=== PATIENT | male | born 1935 | race Caucasian/White ===

== ENCOUNTER → 2016-03-14 | Outpatient (CLI) | payer MEDICARE, OTHER ==
[~2016-03-14] MED LIST: ACET-1145 PO; ALBU18HF IH; CLOP75TA27 PO; INSU100C3 SC; LANT3I SC; LEVE-5 PO; METO25TA7 PO; MONT10TA21 PO; NAPR-688 PO; ONDA4TAB35 PO; PANT40TA4 PO; TAMS0.4C2 PO; TRAM50TA2 PO
--- NOTE | 2016-03-14 15:37 | RADRPT ---
PROCEDURE: XR Chest. CLINICAL INDICATION: Cough. TECHNIQUE: Two views. Frontal and lateral. COMPARISON: 05/11/2015. FINDINGS: There is mild atelectasis at the lung bases. The lungs are otherwise clear. The heart is enlarged. There is calcification in the aorta consistent with atherosclerosis. There is no pleural effusion. There is no pneumothorax. IMPRESSION: 1. Mild atelectasis at the lung bases. 2. Cardiomegaly and atherosclerosis. RPTAT: QQ .Emerson Wu MD, MD Date Time Electronically viewed and signed by .Emerson Wu MD, on 03/14/2016 15:37 .R/
== END | disposition home or self-care (01) ==
LOC: RAD 12:29
PROVIDERS: ATTEND Internal Medicine
DX: R05 Cough (principal); J98.11 Atelectasis; I51.7 Cardiomegaly; I70.90 Unspecified atherosclerosis
CPT/HCPCS: 71020

== ENCOUNTER 2016-04-17 09:40 | Emergency (ER) | payer MEDICARE, OTHER ==
[~2016-04-17] VITALS: Wt 78.4 kg
[2016-04-17] MEDS ORDERED: DIPHENHYDRAMINE 25 MG CAP PO ONE (11:30)
[2016-04-17] MEDS ORDERED: NICARDipine HCL 30 MG CAPSULE PO ONE (11:30)
--- NOTE | 2016-04-17 12:15 | RADRPT ---
PROCEDURE: CT Brain without. CLINICAL INDICATION: Headache. TECHNIQUE: A CT of the brain was performed on multidetector high-resolution CT scanner utilizing a xial sections from the skull base through the vertex without contrast. The scan was reviewed in sof t tissue brain and high frequency resolution bone algorithm windows. Images were reviewed on a high -resolution PACS workstation. One or more the following does reduction techniques were utilized: Aut omated exposure control, adjustment of the mA/ or kV according to patient's size, or use of iterativ e reconstruction technique. The exam CTDI = 39.25 mGy and the DLP = 554.95 mGy-cm. COMPARISON: Brain CT 04/19/2015. FINDINGS: Prior right parietal craniotomy is again noted with underlying frontoparietal convexity meningioma m easuring approximately 3.1 cm without significant interval change. There is persistent similar surro unding hypoattenuation which may represent encephalomalacia versus edema. The ventricles and sulci are mildly prominent indicative of volume loss. There is no intracranial he morrhage or midline shift. No abnormal intra-axial or extra-axial fluid collections are seen. The g ray/white matter differentiation is preserved. There are mild scattered foci of hypoattenuation in the white matter, which are nonspecific in etiol ogy but likely reflect chronic small vessel ischemic changes. There are mild intracranial vascular calcifications consistent with atherosclerosis. The visualized paranasal sinuses are essentially sanjuanita ar. IMPRESSION: 1. Prior right parietal craniotomy with underlying frontoparietal convexity meningioma without sign ificant interval change. 2. No acute intracranial hemorrhage or transcortical infarction. 3. Mild intracranial atherosclerosis and chronic small vessel ischemic changes. 4. Mild generalized cerebral volume loss. RPTAT: HH .Kate Hall MD, MD Date Time Electronically viewed and signed by .Kate Hall MD, MD on 04/17/2016 12:15 .N/
[2016-04-17] MEDS ORDERED: METO100T13 PO (12:29)
[2016-04-17] MEDS ORDERED: ONDANSETRON (ODT) 4 MG TAB ODT STA (12:47)
--- NOTE | 2016-04-17 12:51 | ERD ---
ER Documentation Chief Complaint Date/Time DATE: 04/17/16 TIME: 12:51 Chief Complaint COUGH CONGESTION AND HEADACHE SINCE YESTERDAY. NO NEURO DEF. NO FALL HPI Is a 72-year-old male with coronary disease, stroke, and hypertension who presents with headache. He also complains of left-sided knee pain and itchiness to the left leg. He said that this is been going on for "days". The headache was gradual in onset. He has no fevers. He has had no treatment as of yet. Upon review of old medical records the patient has multiple visits to the ER for various complaints. He does not know the name of his primary doctor. ROS All systems reviewed and are negative except as per history of present illness. Medications Home Meds Reported Medications Metoprolol Succinate* (Toprol XL*) 100 Mg Tab.sr.24h, 100 MG PO DAILY, #30 TAB 04/17/16 Insulin Glargine* (Lantus*) 100 Unit/Ml Soln, 52 UNIT SC QHS, VIAL 04/19/15 Pantoprazole* (Pantoprazole*) 40 Mg Tablet.dr, 40 MG PO DAILY, TAB 04/19/15 Tamsulosin Hcl* (Tamsulosin Hcl*) 0.4 Mg Cap.er.24h, 0.4 MG PO DAILY, CAP 08/17/14 Clopidogrel Bisulfate (Clopidogrel) 75 Mg Tablet, 75 MG PO DAILY, TAB 08/17/14 Albuterol Sulfate* (Ventolin HFA*) 18 Gm Hfa.aer.ad, 1 PUFF IH Q4H Y for WHEEZING AND RESP DISTRESS, EA 01/29/14 Levetiracetam* (Keppra*) 500 Mg Tablet, 500 MG PO BID, TAB 01/29/14 Insulin Aspart (Novolog) 100 U/Ml Cartridge, 15 UNITS SC TID, EA 01/29/14 Discontinued Reported Medications Ondansetron Hcl* (Zofran* ODT) 4 mg -ODT Tab.disper, 4 MG PO TID Y for NAUSEA AND OR VOMITING, TAB 04/19/15 Tramadol HCl (Tramadol HCl) 50 Mg Tab, 50 MG PO QID, TAB 01/29/14 Metoprolol Succinate* (Toprol XL*) 25 Mg Tab.sr.24h, 25 MG PO BID, TAB 01/29/14 Montelukast Sodium* (Singulair*) 10 Mg Tablet, 10 MG PO HS, TAB 01/29/14 Discontinued Scripts Acetaminophen-Codeine (Tylenol With Codeine #3 Tablet) 300-30 Mg Tablet, 1 TAB PO Q4H Y for PAIN, #10 TAB Prov:LITO CHESTER DO 08/16/15 Naproxen* (Naproxen*) 500 Mg Tablet, 500 MG PO BID Y for PAIN AND/OR INFLAMMATION, #30 TAB Prov:ALEXANDRO VASQUEZ MD 10/07/14 Allergies Allergies: Coded Allergies: No Known Drug Allergies (Verified Allergy, Mild, 04/17/16) PMhx/Soc History of Surgery: Yes (prostate surgery, brain surgery, stone removal ) Anesthesia Reaction: No Hx Neurological Disorder: No Hx Respiratory Disorders: Yes (asthma ) Hx Cardiac Disorders: Yes (HTN) Hx Psychiatric Problems: No Hx Miscellaneous Medical Probl: Yes (dm) Hx Alcohol Use: Yes Hx Substance Use: No Hx Tobacco Use: No Smoking Status: Never smoker FmHx Family History: No diabetes Physical Exam Vitals Vital Signs Date Time Temp Pulse Resp B/P Pulse Ox O2 Delivery O2 Flow Rate FiO2 04/17/16 13:05 98.9 85 16 141/81 98 Room Air 04/17/16 09:48 98.9 89 20 200/89 98 Physical Exam Const: No acute distress Head: Atraumatic Eyes: Normal Conjunctiva ENT: Normal External Ears, Nose and Mouth. Neck: Full range of motion..~ No meningismus. Resp: Clear to auscultation bilaterally Cardio: Regular rate and rhythm, no murmurs Abd: Soft, non tender, non distended. Normal bowel sounds Skin: No petechiae or rashes Back: No midline or flank tenderness Ext: No cyanosis, or edema Neur: Awake and alert, cranial nerves II through XII intact, strength is 5 out of 5 in all 4 extremities, speech is normal Psych: Normal Mood and Affect Results 24 hrs Current Medications Medications (Trade) Dose Ordered Sig/Joaquin Route PRN Reason Start Time Stop Time Status Last Admin Dose Admin Nicardipine HCl (Cardene) 30 mg ONCE ONCE PO 04/17/16 11:30 04/17/16 11:31 DC 04/17/16 11:31 Diphenhydramine HCl (Benadryl) 25 mg ONCE ONCE PO 04/17/16 11:30 04/17/16 11:31 DC 04/17/16 11:32 Acetaminophen/ Hydrocodone Bitart ([place] (10/325)) 1 tab ONCE ONCE PO 04/17/16 13:00 04/17/16 13:01 DC 04/17/16 12:53 Ondansetron HCl (Zofran Odt) 4 mg ONCE STAT ODT 04/17/16 12:47 04/17/16 12:48 DC 04/17/16 12:53 Procedures/MDM EKG read by me: Rate/Rhythm: Regular rate and rhythm at a rate of 74 Intervals: Normal Impression: No evidence of ischemia or arrhythmia CT head negative for acute process per radiology. Patient is a 72-year-old male presents with hypertension and headache. CT head shows no intracranial hemorrhage or mass. EKG shows no signs of ischemia or arrhythmia. At this point I doubt stroke, intrarenal mass, or intracranial hemorrhage. I doubt meningitis. I doubt subarachnoid hemorrhage. I believe outpatient management is appropriate. The patient will need to follow-up closely with his primary doctor within 24-48 hours. The patient had elevated blood pressure was given Cardene by mouth. The patient will need to take his blood pressure medicines as directed by his doctor and follow-up closely for repeat blood pressure check. Departure Diagnosis: Primary Impression: Hypertension Hypertension type: essential hypertension Qualified Code: I10 - Essential hypertension Additional Impression: Headache Headache type: unspecified Headache chronicity pattern: acute headache Intractability: not intractable Qualified Code: R51 - Acute nonintractable headache, unspecified headache type Condition: Fair Patient Instructions: Self-Care for Headaches, High Blood Pressure ( Hypertension) Additional Instructions: Llame al doctor MAANA y jacob cas PAULINO PARA DENTRO DE 1-2 RAPHAEL.Dgale a la secretaria que nosotros le instruimos hacer esta paulino.Avise o llame si ludwig condicin se empeora antes de la paulino. Regresa aqui si peor o no mejor. JOSE DANIEL ROBBINS MD Apr 17, 2016 12:51
[2016-04-17] MEDS ORDERED: HYDROCODONE/APAP (10/325) TAB PO ONE (13:00)
[2016-04-17 13:05] VITALS: BP 141/81; PULSE 85; RESP 16; TEMP 98.9
== END 2016-04-17 13:06 | disposition home or self-care (01) ==
LOC: E/R 09:40
DX: I10 Essential (primary) hypertension (principal); E11.9 Type 2 diabetes mellitus without complications; J45.909 Unspecified asthma, uncomplicated; Z79.4 Long term (current) use of insulin
CPT/HCPCS: 70450; 93005

== ENCOUNTER 2017-01-09 09:09 | Inpatient (IN) | payer MEDICARE, OTHER ==
[~2017-01-09] VITALS: Ht 167.6 cm; Wt 79.1 kg
[2017-01-09] VITALS (8 sets, daily range): BP systolic 133–244; BP diastolic 66–107; PULSE 78–121; RESP 18–20; TEMP 98.5; Ht 167.6 cm; Wt 79.1 kg
[~2017-01-09 09:09] MED LIST changes: -ACET-1145 PO; +METO-336 PO; -METO25TA7 PO; -MONT10TA21 PO; -NAPR-688 PO; -ONDA4TAB35 PO; -TRAM50TA2 PO
[2017-01-09] MEDS ORDERED: KETOROLAC 15 MG INJ IV STA (09:27)
[2017-01-09] MEDS ORDERED: SOD CHLORIDE 0.9% 500 ML IV STA (09:27)
--- NOTE | 2017-01-09 09:30 | ERD ---
ER Documentation Chief Complaint Chief Complaint BODYACHES, WORSE ON LEFT SIDE, NUMBNESS, ON AND OFF HPI 81-year-old man brought in by daughter THAD presents with paresthesias to the left side, complains of generalized weakness and headache. He has abdominal cramping diffusely and also complains of dysuria 2 days. He denies slurred speech, no weakness in his arms or legs, no gait ataxia, no recent weight loss, no blood per rectum or melena, no fevers or chills. Patient has no history of renal issues. ROS All systems reviewed and are negative except as per history of present illness. Medications Home Meds Reported Medications Metoprolol Succinate* (Toprol XL*) 100 Mg Tab.sr.24h, 100 MG PO DAILY, #30 TAB 04/17/16 Insulin Glargine* (Lantus*) 100 Unit/Ml Soln, 52 UNIT SC QHS, VIAL 04/19/15 Pantoprazole* (Pantoprazole*) 40 Mg Tablet.dr, 40 MG PO DAILY, TAB 04/19/15 Tamsulosin Hcl* (Tamsulosin Hcl*) 0.4 Mg Cap.er.24h, 0.4 MG PO DAILY, CAP 08/17/14 Clopidogrel Bisulfate (Clopidogrel) 75 Mg Tablet, 75 MG PO DAILY, TAB 08/17/14 Albuterol Sulfate* (Ventolin HFA*) 18 Gm Hfa.aer.ad, 1 PUFF IH Q4H Y for WHEEZING AND RESP DISTRESS, EA 01/29/14 Levetiracetam* (Keppra*) 500 Mg Tablet, 500 MG PO BID, TAB 01/29/14 Insulin Aspart (Novolog) 100 U/Ml Cartridge, 15 UNITS SC TID, EA 01/29/14 Allergies Allergies: Coded Allergies: No Known Drug Allergies (Verified Allergy, Mild, 01/09/17) PMhx/Soc COPD, hypertension, obesity, diabetes mellitus, BPH History of Surgery: Yes (prostate surgery, brain surgery, stone removal ) Anesthesia Reaction: No Hx Neurological Disorder: No Hx Respiratory Disorders: Yes (asthma ) Hx Cardiac Disorders: Yes (HTN) Hx Psychiatric Problems: No Hx Miscellaneous Medical Probl: Yes (dm) Hx Alcohol Use: Yes Hx Substance Use: No Hx Tobacco Use: No FmHx Family History: No diabetes Physical Exam Vitals Vital Signs Date Time Temp Pulse Resp B/P Pulse Ox O2 Delivery O2 Flow Rate FiO2 01/09/17 11:44 69 18 173/104 98 Room Air 01/09/17 09:43 73 18 189/95 97 Room Air 01/09/17 09:13 98.5 85 17 213/98 98 Physical Exam GENERAL: Well-developed, well-nourished, well-hydrated, moderate discomfort, afebrile HEENT: Moist mucous membranes, pink conjunctiva, no cervical spine tenderness or step-off deformities, no goiter, no jaundice or icterus, extraocular movements intact without pain. No submandibular induration, and no pharyngeal erythema NEURO: Alert and oriented 3, cranial nerves II through XII intact bilaterally, pupils equal round reactive to light, no focal deficits or facial asymmetry, sensation intact distally Strength 5/5 in upper and lower extremities bilaterally CARDIAC: Regular rate and rhythm, no murmurs rubs or gallops LUNGS: Clear bilaterally no wheezing crackles or stridor ABDOMEN: Soft nontender, no guarding, no rigidity, no rebound, no psoas sign no obturator sign. Normoactive bowel sounds SKIN: Warm and dry to touch, no abrasions, contusions, or hematomas, no lacerations, no ecchymosis, no target lesions, and without ulcers EXTREMITIES: No clubbing cyanosis or edema, calves are bilaterally symmetrical, no Homans sign, no popliteal cord sign. Distal pulses equal and bilateral PSYCH: Normal affect without agitation or irritability Result Diagram: 01/10/1760401/10/17604 Results 24 hrs Laboratory Tests Test 01/09/17 10:00 01/09/17 10:50 White Blood Count 7.410^3/ul Red Blood Count 3.6110^6/ul Hemoglobin 11.0g/dl Hematocrit 32.1% Mean Corpuscular Volume 88.9fl Mean Corpuscular Hemoglobin 30.5pg Mean Corpuscular Hemoglobin Concent 34.3g/dl Red Cell Distribution Width 13.3% Platelet Count 70509^3/UL Mean Platelet Volume 10.5fl Neutrophils % 71.3% Lymphocytes % 18.8% Monocytes % 6.6% Eosinophils % 2.2% Basophils % 0.7% Nucleated Red Blood Cells % 0.0/100WBC Neutrophils # 5.310^3/ul Lymphocytes # 1.410^3/ul Monocytes # 0.510^3/ul Eosinophils # 0.210^3/ul Basophils # 0.110^3/ul Nucleated Red Blood Cells # 0.010^3/ul Urine Color YELLOW Urine Clarity CLEAR Urine pH 6.0 Urine Specific [place] 1.013 Urine Ketones NEGATIVEmg/dL Urine Nitrite NEGATIVEmg/dL Urine Bilirubin NEGATIVEmg/dL Urine Urobilinogen NEGATIVEmg/dL Urine Leukocyte Esterase NEGATIVELeu/ul Urine Microscopic RBC 1/HPF Urine Microscopic WBC 1/HPF Urine Bacteria FEW/HPF Urine Eosinophils % 0.0% Urine Hemoglobin NEGATIVEmg/dL Urine Random Creatinine 73.19mg/dl Urine Random Sodium 88mmol/L Urine Protein/Creatinine Ratio 20.23RATIO Urine Glucose 3+mg/dL Urine Total Protein mg/dl Sodium Level 140mmol/L Potassium Level 4.2mmol/L Chloride Level 109mmol/L Carbon Dioxide Level 24mmol/L Anion Gap 11 Blood Urea Nitrogen 33mg/dl Creatinine 3.21mg/dl Glucose Level 144mg/dl Calcium Level 8.3mg/dl Total Bilirubin 0.1mg/dl Direct Bilirubin 0.00mg/dl Indirect Bilirubin 0.1mg/dl Aspartate Amino Transf (AST/SGOT) 26IU/L Alanine Aminotransferase (ALT/SGPT) 38IU/L Alkaline Phosphatase 68IU/L Troponin I 0.033ng/ml Total Protein 5.5g/dl Albumin 2.7g/dl Globulin 2.80g/dl Albumin/Globulin Ratio 0.96 Lipase 130U/L Hemoglobin A1c 7.9% Triglycerides Level 205mg/dl Cholesterol Level 176mg/dl LDL Cholesterol, Calculated 101mg/dl HDL Cholesterol 34mg/dl Cholesterol/HDL Ratio 5.1RATIO Thyroid Stimulating Hormone (TSH) 2.230MIU/L Current Medications Medications (Trade) Dose Ordered Sig/Joaquni Route PRN Reason Start Time Stop Time Status Last Admin Dose Admin Sodium Chloride (NS) 500 ml @ 500 mls/hr Q1H STAT IV 01/09/17 09:27 01/09/17 10:26 DC 01/09/17 10:06 Ketorolac Tromethamine (Toradol) 15 mg ONCE STAT IV 01/09/17 09:27 01/09/17 09:29 DC 01/09/17 10:03 Morphine Sulfate (morphine) 4 mg ONCE STAT IV 01/09/17 11:11 01/09/17 11:12 DC 01/09/17 11:39 Ondansetron HCl (Zofran Inj) 4 mg ONCE STAT IV 01/09/17 11:11 01/09/17 11:12 DC 01/09/17 11:37 Cephalexin (Keflex) 500 mg ONCE ONCE PO 01/09/17 11:30 01/09/17 11:31 DC 01/09/17 11:39 Procedures/[facility] IV line was established patient was placed on satellite project site monitor rhythm strip revealed a sinus rhythm at about 70 bpm with upright P and T waves. Patient was afebrile EKG performed, read by me: 72 bpm, normal sinus rhythm, normal axis, no acute ST segment changes, narrow QRS complex, with good R-wave progression in precordial leads. One view chest x-ray performed, read by me reveals cardiomegaly and atelectasis at the left base, no acute infiltrates, no pneumothorax. CT scan of the brain was performed: IMPRESSION: 1. Prior right parietal craniotomy with underlying frontoparietal convexity meningioma with persistent surrounding encephalomalacia and/or edema. Consider follow-up brain MRI for better evaluation. 2. No acute intracranial hemorrhage or transcortical infarction. 3. Mild intracranial atherosclerosis and chronic small vessel ischemic changes. 4. Mild generalized cerebral volume loss. CT scan of the abdomen and pelvis was performed,IMPRESSION: 1. No gross renal/ureteric calculi. No evidence of obstruction or hydronephrosis. Small left-sided renal cyst. No gross renal/ureteric calculi. The right kidney is mildly atrophic. 2. Sigmoid diverticulosis without evidence of diverticulitis. No perforation or focal fluid collections. Mild adjacent mesenteric congestion is identified, unchanged since prior study. 3. No evidence of bowel obstruction. The appendix is within normal limits. 4. Fatty liver. 5. Atherosclerosis of the aorta. 6. Bilateral lower lobe atelectasis and small pleural effusions Patient was initially given Toradol 15 mg IV 1 for complaints of pain (he had no known history of renal issues), for later complaints of pain and headache I administered morphine 4 mg IV and Zofran 4 mg IV. CBC was unremarkable, electrolytes revealed renal failure with a BUN/creatinine of 33/3.2, liver function tests are normal, troponin was negative, urine analysis was negative for infection. Patient presented with multiple vague symptoms including body aches and headache , he had no history of renal failure and previous creatinine levels have been within normal limits. He required multiple analgesics for pain control and was found to have an elevated creatinine level, imaging studies were unremarkable and he will be admitted to [facility] for continued medical management and evaluation. Antibiotics deferred at this time pending urine cultures. Departure Diagnosis: Primary Impression: Acute weakness Additional Impressions: Acute renal failure Acute renal failure type: unspecified Qualified Code: N17.9 - Acute renal failure, unspecified acute renal failure type Headache Headache type: tension-type Headache chronicity pattern: acute headache Intractability: intractable Qualified Code: G44.201 - Acute intractable tension-type headache Condition: ALEXANDRO Prakash MD Jan 09, 2017 09:30
--- NOTE | 2017-01-09 09:45 | RADRPT ---
PROCEDURE: XR Chest. CLINICAL INDICATION: Shortness of breath TECHNIQUE: Single portable view of the chest was obtained COMPARISON: CR CHEST 03/14/2016; OT CR CHEST 05/11/2015; CR CHEST 04/19/2015 FINDINGS: The trachea is midline. The cardiac silhouette is enlarged and pulmonary vascularity are within norm al limits. Left lower lobe atelectasis is noted. There is atherosclerotic calcification of the aorti c knob. The costophrenic angles are sharp. IMPRESSION: 1. Cardiomegaly and atherosclerotic disease. 2. Left lower lobe atelectasis. No evidence of acute cardiopulmonary disease. No change since prior exam. RPTAT: AAPP Physician [place] Date Time Electronically viewed and signed by Froy Rosenthal Physician on 01/09/2017 09:45 JL/
[2017-01-09 10:37] LABS: BASOPHIL # 0.1 10^3/ul (0.0-0.1); BASOPHILS % 0.7 % (0.0-2.0); EOSINOPHILS # 0.2 10^3/ul (0.0-0.5); EOSINOPHILS % 2.2 % (0.0-7.0); HEMATOCRIT 32.1 % (42.0-52.0); LYMPHOCYTES # 1.4 10^3/ul (0.8-2.9); LYMPHOCYTES % 18.8 % (15.0-51.0); MEAN CORPUSCULAR HEMOGLOBIN 30.5 pg (29.0-33.0); MEAN CORPUSCULAR HGB CONC 34.3 g/dl (32.0-37.0); MEAN CORPUSCULAR VOLUME 88.9 fl (82.0-101.0); MEAN PLATELET VOLUME 10.5 fl (7.4-10.4); MONOCYTE # 0.5 10^3/ul (0.3-0.9); MONOCYTES % 6.6 % (0.0-11.0); NEUTROPHIL # 5.3 10^3/ul (1.6-7.5); NEUTROPHILS % 71.3 % (39.0-77.0); PLATELET COUNT 281 10^3/UL (140-415); RED BLOOD COUNT 3.61 10^6/ul (4.70-6.10); RED CELL DISTRIBUTION WIDTH 13.3 % (11.5-14.5); WHITE BLOOD COUNT 7.4 10^3/ul (4.8-10.8)
[2017-01-09 10:46] LABS: ALBUMIN 2.7 g/dl (3.3-4.9); ALBUMIN/GLOBULIN RATIO 0.96; BILIRUBIN,INDIRECT 0.1 mg/dl (0-1.1); BILIRUBIN,TOTAL 0.1 mg/dl (0.2-1.3); CALCIUM 8.3 mg/dl (8.4-10.2); CREATININE 3.21 mg/dl (0.61-1.24); POTASSIUM 4.2 mmol/L (3.5-5.1); TOTAL PROTEIN 5.5 g/dl (6.1-8.1)
[2017-01-09 10:58] LABS: TROPONIN-I 0.033 ng/ml (0.00-0.12)
[2017-01-09] MEDS ORDERED: morphine 4 MG/ML VIAL IV STA (11:11)
[2017-01-09] MEDS ORDERED: ONDANSETRON 4 MG INJ IV STA (11:11)
[2017-01-09 11:22] LABS: ADD UMIC YES; UR ASCORBIC ACID NEGATIVE (NEGATIVE); UR BACTERIA FEW /HPF (NONE SEEN); UR BILIRUBIN (Dip) NEGATIVE (NEGATIVE); UR BLOOD (Dip) NEGATIVE (NEGATIVE); UR CLARITY CLEAR (CLEAR); UR COLOR YELLOW (YELLOW); UR GLUCOSE (Dip) 3+ mg/dL (NEGATIVE); UR KETONES (Dip) NEGATIVE (NEGATIVE); UR LEUKOCYTE ESTERASE (Dip) NEGATIVE Leu/ul (NEGATIVE); UR NITRITE (Dip) NEGATIVE (NEGATIVE); UR RBC 1 /HPF (0-5); UR SPECIFIC GRAVITY (Dip) 1.013 (1.003-1.030); UR TOTAL PROTEIN (Dip) 3+ mg/dl (NEGATIVE); UR UROBILINOGEN (Dip) NEGATIVE (NEGATIVE)
[2017-01-09] MEDS ORDERED: CEPHALEXIN 500 MG CAP PO ONE (11:30)
--- NOTE | 2017-01-09 12:31 | RADRPT ---
PROCEDURE: CT ABDOMEN AND PELVIS WITHOUT CONTRAST. CLINICAL INDICATION: Flank pain. Rule out stone TECHNIQUE: CT scan of the abdomen and pelvis without contrast was performed on a multidetector hig h-resolution CT scanner. The patient was scanned without intravenous contrast. Coronal and sagittal reformatted images were obtained from the axial source images. Images were reviewed on a high-resol [employer] PACS workstation. The total exam CTDI equals 17.9 mGy and the total exam DLP equals 1013.4 mGy -cm. One or more of the following dose reduction techniques were used: Automated exposure control. Adjustment of the mA and/or kV according to patient size. Use of iterative reconstruction technique. DICOM images are available COMPARISON: CT abdomen/pelvis dated August 16, 2015 FINDINGS: CT abdomen: There is bilateral lower lobe atelectasis and small pleural effusions. Heart size is enlarged. There is no significant pericardial effusion. Hepatic morphology is within limits. There is diffuse fatty infiltration of the liver. Gallbladder i s unremarkable. No evidence of intrahepatic or extrahepatic biliary dilatation. The spleen and pancreas are within normal limits. Both adrenal glands are within normal limits. Both kidneys are and normal position. There is nonspecific perinephric fat stranding. No obstruction or hydronephrosis. No gross renal/ureteric calculi. There is a small left-sided renal cyst. The rig ht kidney is mildly atrophic. The visualized GI tract demonstrate normal caliber loops of small and large bowel. No evidence of nitesh wel obstruction. The appendix is within normal limits. Mild atherosclerotic calcification of the aorta is identified. No significant retroperitoneal lympha denopathy. CT pelvis: Bladder is unremarkable. The prostate gland is normal size. The sigmoid colon demonstrate diverticul osis without evidence of diverticulitis. There is mesenteric congestion, unchanged since prior study . No perforation or focal fluid collections. The visualized osseous structures demonstrate multilevel degenerative disease of the spine. IMPRESSION: 1. No gross renal/ureteric calculi. No evidence of obstruction or hydronephrosis. Small left-sided r enal cyst. No gross renal/ureteric calculi. The right kidney is mildly atrophic. 2. Sigmoid diverticulosis without evidence of diverticulitis. No perforation or focal fluid collecti ons. Mild adjacent mesenteric congestion is identified, unchanged since prior study. 3. No evidence of bowel obstruction. The appendix is within normal limits. 4. Fatty liver. 5. Atherosclerosis of the aorta. 6. Bilateral lower lobe atelectasis and small pleural effusions RPTAT: AAPP Froy Rosenthal Physician Date Time Electronically viewed and signed by Froy Rosenthal Physician on 01/09/2017 12:31 JL/
--- NOTE | 2017-01-09 12:34 | RADRPT ---
PROCEDURE: CT Brain without contrast. CLINICAL INDICATION: Numbness, concern for bleed. TECHNIQUE: A CT of the brain was performed on multidetector high-resolution CT scanner utilizing a xial sections from the skull base through the vertex without contrast. The scan was reviewed in sof t tissue brain and high frequency resolution bone algorithm windows. Images were reviewed on a high -resolution PACS workstation. One or more the following does reduction techniques were utilized: Aut omated exposure control, adjustment of the mA/ or kV according to patient's size, or use of iterativ e reconstruction technique. The exam CTDI = 43.05 mGy and the DLP = 720.23 mGy-cm. DICOM images are available. COMPARISON: Brain CT 04/17/2016. Brain MRI 04/21/2015. FINDINGS: Prior right parietal craniotomy is again noted with underlying frontoparietal convexity meningioma m easuring approximately 3.1 cm without significant interval change. There is persistent similar surro unding hypoattenuation which may represent encephalomalacia and/or edema. The ventricles and sulci are mildly prominent indicative of volume loss. There is no intracranial he morrhage or midline shift. No abnormal intra-axial or extra-axial fluid collections are seen. The gr ay/white matter differentiation is preserved. There are mild scattered foci of hypoattenuation in the white matter, which are nonspecific in etiol ogy but likely reflect chronic small vessel ischemic changes. There are mild intracranial vascular c alcifications consistent with atherosclerosis. The visualized paranasal sinuses are essentially jessika r. IMPRESSION: 1. Prior right parietal craniotomy with underlying frontoparietal convexity meningioma with persist ent surrounding encephalomalacia and/or edema. Consider follow-up brain MRI for better evaluation. 2. No acute intracranial hemorrhage or transcortical infarction. 3. Mild intracranial atherosclerosis and chronic small vessel ischemic changes. 4. Mild generalized cerebral volume loss. RPTAT: HH .Kate Hall MD, MD Date Time Electronically viewed and signed by .Kate Hall MD, MD on 01/09/2017 12:33 .N/
--- NOTE | 2017-01-09 13:22 | HP ---
Date/Time of Note Date/Time of Note DATE: 01/09/17 TIME: 13:22 Assessment/Plan VTE Prophylaxis VTE Prophylaxis Intervention: heparin Lines/Catheters IV Catheter Type (from Nrs): Peripheral IV Assessment/Plan Chief Complaint/Hosp Course 81-year-old male with a past medical history of hypertension, dyslipidemia, type 2 diabetes, diabetic neuropathy, coronary artery disease, COPD, meningioma with right frontoparietal craniotomy, TIAs, BPH, right ICA stenosis, who presented to the emergency room for evaluation of generalized weakness, headache , B/L lower extremity pain and numbness who also noted with elevated creatinine and HTN urgency. 1. Generalized weakness, headache, lower extremity pain and numbness. Rule out acute neurovascular etiology versus other causes. -Admit as inpatient. Obtain MRI brain, carotid ultrasound and a lower extremity venous duplex to rule out DVT. -Monitor neurovascular checks every 4 hrs -Pain meds PRN. 2. Hypertensive urgency. -Hydralazine IV PRN SBP greater than 170. -Resume home antihypertensives. 3. Acute kidney injury. Needs to rule out chronic kidney disease as well. -Obtain renal ultrasound, and urine studies. Will also place a nephrology consult. -Monitor renal function closely and avoid nephrotoxins. 4. Anemia, likely chronic. H&H stable. -Monitor. 5. Type 2 diabetes with DM neuropathy. -Hold oral agents for now. Obtain A1c. Patient will be placed on Accu-Cheks/ insulin sliding scale/and Lantus insulin. 6.Dyslipidemia -Resume statin. 7. COPD. Stable. -PRN TRACY 8. Meningioma with right frontoparietal craniotomy 9. BPH -Resume home medications. 10.Right ICA stenosis 50-70%. -We will obtain a follow-up carotid duplex as patient now presents with numbness. Prophylaxis: Heparin/Protonix. Rest of the management depend on hospital course and input from review consultant. Approximately 60 minutes was spent on this history and physical. Patient was seen in collaboration with . Problems: HPI/ROS Admit Date/Time Admit Date/Time Hx of Present Illness This is a 79-year-old male who is also a poor historian, with a past medical history hypertension, dyslipidemia, type 2 diabetes, diabetic neuropathy , coronary artery disease, COPD, meningioma with right frontoparietal craniotomy , TIAs, BPH, right ICA stenosis, who presented to the emergency room for evaluation of generalized weakness, headache, lower extremity pain and numbness. Patient denied any chest pain, palpitation, shortness of breath, nausea, vomiting, abdominal pain, constipation, diarrhea, loss of consciousness , dizziness, bleeding episodes or other constitutional symptoms. Patient also denied any fever or chills. Initial workup showed BUN 33, creatinine 3.21, hemoglobin 11 and hematocrit 32.1. Vital signs with blood pressure 213/98. Chest x-ray without acute cardiopulmonary disease. A CT abdomen and pelvis was also done without any acute intra-abdominal pathology seen. A CT brain showed prior right parietal craniotomy with underlying frontoparietal convexity meningioma with persistent surrounding encephalomalacia/edema. A follow-up MRI was recommended. Patient was admitted for further evaluation. ROS A 12 point review of system was assessed and is negative other than what is mentioned in HPI. PMH/Family/Social Past Medical History See HPI Past Surgical History See HPI Social History Patient denied history of alcohol, smoking or illicit drug use. Smoking Status: Never smoker Exam/Review of Systems Vital Signs Vitals Vital Signs Date Time Temp Pulse Resp B/P Pulse Ox O2 Delivery O2 Flow Rate FiO2 01/09/17 11:44 69 18 173/104 98 Room Air 01/09/17 09:13 98.5 Exam Exam General: Well developed,adequately built, not in any acute distress . HEENT: Normocephalic, Atraumatic, No laceration or hematoma; Eyes: PEERL, Conjunctiva clear, Anicteric sclera Neck: Supple without any lymphadenopathy, nontender, no JVD, no carotid bruits, trachea midline, no thyromegaly Cardiac: S1, S2 auscultated, regular rhythm and rate, no mumurs or gallop Pulmonary: Normal respiratory effort. Chest clear to auscultation bilaterally, no adventitious breath sounds GI: Abdomen normal to inspection. Soft, non tender, non- distended, no masses, no rebound tenderness or guarding. Bowel sounds active on all four quadrants Genitourinary: Deferred Extremities: Having bilateral calf pain. No cyanosis, clubbing, or edema. Pulses [2+] bilaterally. Full ROM on all four extremities. No focal weakness appreciated. Neurologic: Alert to person, place, time, and situation. Affect appropriate, intact sensation. Skin: Clean,dry, and intact. No ecchymosis, no rashes, or lesions Labs Result Diagram: 01/09/17 1000 01/09/17 1000 PB SAMAYOA NP Jan 09, 2017 13:22
[2017-01-09] MEDS ORDERED: ACETAMINOPHEN 325 MG TAB PO PRN (13:30)
[2017-01-09] MEDS ORDERED: ONDANSETRON 4 MG INJ IV PRN (13:30)
[2017-01-09] MEDS ORDERED: ACETAMINOPHEN 650 MG SUPP PR PRN (13:30)
[2017-01-09] MEDS ORDERED: Discontinue current oral sulfonylureas (glyburide, glipizide, and/or glimepiride) prior to XX ONE (13:30)
[2017-01-09] MEDS ORDERED: ALBUTEROL/IPRATROPIUM (NEB) 3 ML AMP HHN PRN (13:30)
[2017-01-09] MEDS ORDERED: DOCUSATE SODIUM 100 MG CAP PO PRN (13:30)
[2017-01-09] MEDS ORDERED: HYPOGLYCEMIA PROTOCOL when Glucose is <70 mg/dL or symptomatic <90 mg/dL. XX ONE (13:30)
[2017-01-09] MEDS ORDERED: NACL 0.9% 3 ML SYG IV SCH (13:30)
[2017-01-09] MEDS ORDERED: GLUCOSE GEL 15 GRAM TUBE BUCCAL PRN (14:30)
[2017-01-09] MEDS ORDERED: GLUCOSE GEL 15 GRAM TUBE PO PRN ×2 (14:30)
[2017-01-09] MEDS ORDERED: GLUCAGON 1 MG INJ IM PRN (14:30)
[2017-01-09] MEDS ORDERED: DEXTROSE 50% 50 ML SYRINGE IV PRN ×2 (14:30)
--- NOTE | 2017-01-09 14:37 | RADRPT ---
PROCEDURE: Renal US. CLINICAL INDICATION: Acute kidney injury. TECHNIQUE: Multiple sonographic images of the kidneys and urinary bladder were obtained. The imag es were reviewed on a PACS workstation. COMPARISON: CT scan of the abdomen and pelvis dated 01/09/2017. FINDINGS: The right kidney measures 9.9 cm. The left kidney measures 12.0 cm. There is a benign cyst in the mid right kidney measuring 1.3 cm. There is a hypoechoic mass in the m id to lower left kidney measuring 1.8 x 1.4 cm. The mass may be cystic or solid. There is no hydronephrosis. There is no renal calculus. Renal parenchymal thickness is normal bilaterally. Both kidneys are hyperechoic consistent with medical renal disease. The perirenal regions are normal with no fluid collection or mass. The urinary bladder is empty. IMPRESSION: 1. Benign right renal cyst measuring 1.3 cm. 2. Hypoechoic mass in the mid to lower left kidney measuring 1.8 x 1.4 cm which may be cystic or so lid. Follow-up ultrasound in 6 months advised. 2. No hydronephrosis. 3. Bilateral hyperechoic kidneys consistent with medical renal disease. 4. Empty urinary bladder. 5. Otherwise normal renal ultrasound. RPTAT: QQ .Emerson Wu MD, Date Time Electronically viewed and signed by .Emerson Wu MD, on 01/09/2017 14:36 .R/
--- NOTE | 2017-01-09 15:32 | CONS ---
Date/Time of Note Date/Time of Note DATE: 01/09/17 TIME: 15:24 Assessment/Plan Assessment/Plan Additional Assessment/Plan 1. Non Oliguric Acute Kindey injury on CKD( unknown stage) due to prerenal azotemia + ATN 2. H/o Possible CKD 3. R/o Acute CVA vs TIA 4. Coronary artery disease 5. DM II 6. HTN 7. HL 8. Right kidney cyst 1.3 cm in size and Hypoechoic mass in the mid to lower left kidney measuring 1.8 x 1.4 cm which may be cystic or solid. Plan : Pt was seen in ED, Thx for consultation. pt has TU on CKD, will order urine studies, Renal US c/w Medical sylvia disese but it showed Right kidney cyst 1.3 cm in size and Hypoechoic mass in the mid to lower left kidney measuring 1.8 x 1.4 cm which may be cystic or solid. - will follow up on CT abd+ pelvis without contrast to better look at that mass CK total Urinc acid IVF NS at 100 cc/hr Thanks for consultation, I will continue to follow up on patient. Consultation Date/Type/Reason Admit Date/Time 01/09/2017 Date of Consultation: Jan 09, 2017 Type of Consultation: NEPHROLOGY Reason for Consultation acute kidney injury, left kidney mass, right kidney cyst Referring Provider: NESTOR TAYLOR Hx of Present Illness 81-year-old male with a past medical history of hypertension, dyslipidemia, type 2 diabetes, diabetic neuropathy, coronary artery disease, COPD, meningioma with right frontoparietal craniotomy, TIAs, BPH, right ICA stenosis, who presented to the emergency room for evaluation of generalized weakness, headache , B/L lower extremity pain and numbness.pt is admitted to telemetry floor and plan is to have MRI brain to rule out Acute CVA- Renal has been consulted for elevated Cr of 3.21. pt is also noted to have right renal cyst 1.3cm and left mid to lower left kidney echogenic lesion measuring 1.8 x 1.4 cm Subjective hx not possible: other (generalized weakness ) ENT: congestion, other (headache ) Respiratory: cough, no complaints, pleuritic pain, shortness of breath Cardiovascular: no complaints Gastrointestinal: no complaints Genitourinary: no complaints Musculoskeletal: no complaints Skin: no complaints Neurologic: no complaints Endocrine: no complaints Lymphatic: no complaints Psychological: no complaints Immunologic: no complaints Past Medical History Medical History: coronary artery disease, diabetes, high cholesterol, hypertension, other (COPD, meningioma with right frontoparietal craniotomy, TIAs , BPH, right ICA stenosis,) Past Surgical History Past Surgical Hx: other ( right frontoparietal craniotomy) Family History Significant Family History: no pertinent family hx Social History Alcohol Use: none Smoking Status: Never smoker Drug Use: none Exam/Review of Systems Vital Signs Vitals Vital Signs Date Time Temp Pulse Resp B/P Pulse Ox O2 Delivery O2 Flow Rate FiO2 01/09/17 14:11 98.5 66 18 179/96 99 Room Air Exam Constitutional: alert Psych: anxiety, no complaints Head: normocephalic Eyes: nl conjunctiva ENMT: nl external ears & nose Neck: non-tender, supple Respiratory: clear to auscultation, diminished breath sounds, normal air movement Cardiovascular: nl pulses, regular rate and rhythm Gastrointestinal: non-tender, soft Musculoskeletal: nl extremities to inspection, nl gait and stance Extremities: normal pulses Neurological: CLAIMS ACCOUNT MANAGER II-XII intact, nl mental status, nl speech, nl strength, other (LE weakness and numbness ) Results Result Diagram: 01/09/17 1000 01/09/17 1000 Results 24 hrs Laboratory Tests Test 01/09/17 10:00 White Blood Count 7.4 Red Blood Count 3.61 L Hemoglobin 11.0 L Hematocrit 32.1 L Mean Corpuscular Volume 88.9 Mean Corpuscular Hemoglobin 30.5 Mean Corpuscular Hemoglobin Concent 34.3 Red Cell Distribution Width 13.3 Platelet Count 281 Mean Platelet Volume 10.5 #H Neutrophils % 71.3 Lymphocytes % 18.8 Monocytes % 6.6 Eosinophils % 2.2 Basophils % 0.7 Nucleated Red Blood Cells % 0.0 Neutrophils # 5.3 Lymphocytes # 1.4 Monocytes # 0.5 Eosinophils # 0.2 Basophils # 0.1 Nucleated Red Blood Cells # 0.0 Urine Color YELLOW Urine Clarity CLEAR Urine pH 6.0 Urine Specific [place] 1.013 Urine Ketones NEGATIVE Urine Nitrite NEGATIVE Urine Bilirubin NEGATIVE Urine Urobilinogen NEGATIVE Urine Leukocyte Esterase NEGATIVE Urine Microscopic RBC 1 Urine Microscopic WBC 1 Urine Bacteria FEW A Urine Hemoglobin NEGATIVE Urine Glucose 3+ H Urine Total Protein 3+ H Sodium Level 140 Potassium Level 4.2 Chloride Level 109 Carbon Dioxide Level 24 Anion Gap 11 Blood Urea Nitrogen 33 H Creatinine 3.21 H Glucose Level 144 Calcium Level 8.3 L Total Bilirubin 0.1 L Direct Bilirubin 0.00 Indirect Bilirubin 0.1 Aspartate Amino Transf (AST/SGOT) 26 Alanine Aminotransferase (ALT/SGPT) 38 Alkaline Phosphatase 68 Troponin I 0.033 Total Protein 5.5 L Albumin 2.7 L Globulin 2.80 Albumin/Globulin Ratio 0.96 Lipase 130 Medications Medications Current Medications Clopidogrel Bisulfate (plaVIX) 75 mg DAILY PO ; Start 01/10/17 at 09:00 Levetiracetam (Keppra) 500 mg BID PO ; Start 01/09/17 at 21:00 Metoprolol Succinate (Toprol Xl) 100 mg DAILY PO ; Start 01/10/17 at 09:00 Pantoprazole (Protonix Tab) 40 mg DAILY PO ; Start 01/10/17 at 09:00 Tamsulosin HCl (Flomax) 0.4 mg DAILY PO ; Start 01/10/17 at 09:00 Ondansetron HCl (Zofran Inj) 4 mg Q6H PRN IV NAUSEA AND/OR VOMITING; Start at 13:30 Acetaminophen (Tylenol Tab) 650 mg Q6H PRN PO PAIN LEVEL 1-3 OR FEVER; Start 01/09/17 at 13:30 Acetaminophen (Tylenol Supp) 650 mg Q6H PRN [place] PAIN LEVEL 1-3 OR FEVER; Start 01/09/17 at 13:30 Acetaminophen/ Hydrocodone Bitart ([place] (5/325)) 1 tab Q6H PRN PO MODERATE PAIN LEVEL 4-6; Start 01/09/17 at 13:30 Docusate Sodium (Colace) 100 mg Q12H PRN PO CONSTIPATION; Start 01/09/17 at 13 :30 Heparin Sodium (Porcine) (Heparin (5000 Units/0.5 ml)) 5,000 unit Q12 SC ; Start 01/09/17 at 21:00 Diagnostic Test (Pha) (Accu-Chek) 1 ea 02 XX ; Start 01/10/17 at 02:00 Insulin Glargine 13 unit 13 unit DAILY@20 SC ; Start 01/09/17 at 20:00 Ceftriaxone Sodium (Rocephin) 50 ml @ 100 mls/hr Q24H IVPB ; Start 01/09/17 at 14:15 Miscellaneous Information 1 ea NOTE XX ; Start 01/09/17 at 14:30 Glucose (Glutose) 15 gm Q15M PRN PO DECREASED GLUCOSE; Start 01/09/17 at 14:30 Glucose (Glutose) 22.5 gm Q15M PRN PO DECREASED GLUCOSE; Start 01/09/17 at 14: 30 Dextrose (D50w Syringe) 25 ml Q15M PRN IV DECREASED GLUCOSE; Start 01/09/17 at 14:30 Dextrose (D50w Syringe) 50 ml Q15M PRN IV DECREASED GLUCOSE; Start 01/09/17 at 14:30 Glucagon (Glucagen) 1 mg Q15M PRN IM DECREASED GLUCOSE; Start 01/09/17 at 14: 30 Glucose (Glutose) 15 gm Q15M PRN BUCCAL DECREASED GLUCOSE; Start 01/09/17 at 14:30 Hydralazine HCl (Apresoline) 10 mg Q6H PRN IV SBP>170; Start 01/09/17 at 14:30 [place] GONZALEZ MD Jan 09, 2017 15:32
--- NOTE | 2017-01-09 15:37 | RADRPT ---
PROCEDURE: Carotid ultrasound CLINICAL INDICATION: Syncope, carotid bruits TECHNIQUE: Glover scale, color doppler, spectral doppler ultrasound of the bilateral carotid and apryl tebral arteries. This study indirectly references the measurement of the distal ICA diameter as the denominator for s tenosis measurement. Validated velocity measurements with angiographic measurements, velocity criter ia are extrapolated from diameter data as defined by: *Cartoid artery stenosis: glover-scale and Doppl er US diagnosis. Society of Radiologists in Ultrasound Consensus Conference. Radiology 2003; 229: 34 0-346. SRU Consensus Conference Criteria for the Diagnosis of Carotid Artery Stenosis* Degree of Stenosis, % ICA PSV, cm/sec Plaque Estimate, % ICA/CCA PSV Ratio Normal <125 None <2.0 <50 <125 <50 <2.0 50 69 125-230 >50 2.0-4.0 >70 but less than near occlusion >230 >50 <4.0 Near occlusion High, low, or undetectable Visible Variable Total occlusion Undetectable Visible, no detectable lumen Not applicable COMPARISON: US NECK 04/20/2015 FINDINGS: Location Right CCA46 - 53 cm/sec Prox ICA 177 cm/sec Mid WJD599 cm/sec Dist JEL613 cm/sec ECA59 cm/sec ICA/CCA3.3 Left CCA65 - 77 cm/sec Prox ICA 75 cm/sec Mid ICA78 cm/sec Dist ICA65 cm/sec ECA74 cm/sec ICA/CCA1.2 Plaque burden: Hemodynamically significant plaque present at the origin of the right internal caroti d artery. Non hemodynamically significant plaque present within the left internal carotid artery. Antegrade flow is seen within the vertebral arteries bilaterally. IMPRESSION: 50 - 69% stenosis present at the origin of the right internal carotid artery. <50 % stenosis present at the origin of the left internal carotid artery. Unchanged from the previous examination. RPTAT: AADD .Ruiz Espinosa MD, Date Time Electronically viewed and signed by .Ruiz Espinosa MD, on 01/09/2017 15:37 .B/
--- NOTE | 2017-01-09 15:37 | RADRPT ---
PROCEDURE: US Lower extremity Venous. CLINICAL INDICATION: Pain and swelling TECHNIQUE: Multiple sonographic images of the bilateral lower extremity deep venous system was obt ained utilizing grayscale, color-flow, compressive sonography and doppler imaging with augmentation. The images were reviewed on a PACS workstation. COMPARISON: None. FINDINGS: There is normal compressibility and flow within the bilateral common femoral, deep femoral, superfic ial femoral and popliteal veins. Normal respiratory variation and augmentation is seen. There is normal color flow and compressibility of bilateral posterior tibial and peroneal veins IMPRESSION: No sonographic evidence for bilateral lower extremity deep venous thrombosis. RPTAT: HH .Johann Forrester MD, MD Date Time Electronically viewed and signed by .Johann Forrester MD, on 01/09/2017 15:37 .W/
[2017-01-09 16:41] LABS: CHOL/HDL RATIO 5.1 RATIO
[2017-01-09 17:12] LABS: THYROID STIMULATING HORMONE 2.23 MIU/L (0.465-4.680)
[2017-01-09] MEDS: HYDROCODONE/APAP (5/325) TAB PO PRN (18:41)
[2017-01-09] MEDS: hydrALAzine 20 MG INJ IV PRN (19:21)
[2017-01-09 20:53] LABS: PROTEIN URINE > 600.0 mg/dl (0.0-11.9)
[2017-01-09 20:58] LABS: PROTEIN/CREAT RATIO 20.23 RATIO
[2017-01-09] MEDS: CEFTRIAXONE 1 GM/50 ML (PMX) 50 ML IVPB SCH (21:00)
[2017-01-09] MEDS: INSULIN ASPART [NOVOLOG] 3 ML PEN SC SCH ×2 (21:00)
[2017-01-09] MEDS: INSULIN GLARGINE [LANtus] 3 ML PEN SC SCH (21:06)
[2017-01-09] MEDS: HEPARIN 5,000 UNIT/0.5 ML VIAL SC SCH (21:21)
[2017-01-09] MEDS: SOD CHLORIDE 0.9% 1,000 ML IV SCH (22:07)
[2017-01-09] MEDS: LEVETIRACETAM 500 MG TAB PO SCH (22:07)
[2017-01-09] MEDS ORDERED: hydrALAzine 20 MG INJ IV ONE (22:30)
[2017-01-09] MEDS ORDERED: FUROSEMIDE 40 MG INJ IM ONE (22:30)
[2017-01-09] MEDS ORDERED: FUROSEMIDE 40 MG INJ IV ONE (23:00)
[2017-01-10] VITALS (10 sets, daily range): BP systolic 135–201; BP diastolic 65–93; PULSE 83–107; RESP 16–21
[2017-01-10] MEDS: ACCU-CHEK XX SCH (02:00)
[2017-01-10] MEDS: SOD CHLORIDE 0.9% 1,000 ML IV SCH (02:00)
[2017-01-10 06:39] LABS: BASOPHIL # 0.1 10^3/ul (0.0-0.1); EOSINOPHILS # 0.1 10^3/ul (0.0-0.5); EOSINOPHILS % 1.4 % (0.0-7.0); HEMATOCRIT 32.1 % (42.0-52.0); HEMOGLOBIN 10.9 g/dl (14.0-18.0); LYMPHOCYTES # 1.7 10^3/ul (0.8-2.9); LYMPHOCYTES % 21.3 % (15.0-51.0); MEAN CORPUSCULAR HEMOGLOBIN 30.2 pg (29.0-33.0); MEAN CORPUSCULAR VOLUME 88.9 fl (82.0-101.0); MEAN PLATELET VOLUME 10.6 fl (7.4-10.4); MONOCYTE # 0.7 10^3/ul (0.3-0.9); MONOCYTES % 9.4 % (0.0-11.0); NEUTROPHIL # 5.2 10^3/ul (1.6-7.5); NEUTROPHILS % 66.4 % (39.0-77.0); PLATELET COUNT 300 10^3/UL (140-415); RED BLOOD COUNT 3.61 10^6/ul (4.70-6.10); RED CELL DISTRIBUTION WIDTH 13.8 % (11.5-14.5); WHITE BLOOD COUNT 7.9 10^3/ul (4.8-10.8)
[2017-01-10 07:13] LABS: ALBUMIN 2.7 g/dl (3.3-4.9); ALBUMIN/GLOBULIN RATIO 0.9; BILIRUBIN,INDIRECT 0.2 mg/dl (0-1.1); BILIRUBIN,TOTAL 0.2 mg/dl (0.2-1.3); CALCIUM 8.6 mg/dl (8.4-10.2); CREATININE 3.23 mg/dl (0.61-1.24); MAGNESIUM 1.1 mg/dl (1.7-2.5); POTASSIUM 4.1 mmol/L (3.5-5.1); TOTAL PROTEIN 5.7 g/dl (6.1-8.1)
[2017-01-10] MEDS: hydrALAzine 20 MG INJ IV PRN (08:06)
[2017-01-10] MEDS: PANTOPRAZOLE (EC) 40 MG TAB PO SCH (08:16)
[2017-01-10] MEDS: LEVETIRACETAM 500 MG TAB PO SCH ×2 (08:17→21:39)
[2017-01-10] MEDS: METOPROLOL (XL) 100 MG TAB PO SCH (08:17)
[2017-01-10] MEDS: CLOPIDOGREL 75 MG TAB PO SCH (08:17)
[2017-01-10] MEDS: TAMSULOSIN (SR) 0.4 MG CAP PO SCH (08:17)
--- NOTE | 2017-01-10 08:28 | CONS ---
Date/Time of Note Date/Time of Note DATE: 01/10/17 TIME: 08:27 Assessment/Plan Assessment/Plan Chief Complaint/Hosp Course 81-year-old male with a past medical history of hypertension, dyslipidemia, type 2 diabetes, diabetic neuropathy, coronary artery disease, COPD, meningioma with right frontoparietal craniotomy, TIAs, BPH, right ICA stenosis, who presented to the emergency room for evaluation of generalized weakness, headache , B/L lower extremity pain and numbness.pt is admitted to telemetry floor and plan is to have MRI brain to rule out Acute CVA- Renal has been consulted for elevated Cr of 3.21. pt is also noted to have right renal cyst 1.3cm and left mid to lower left kidney echogenic lesion measuring 1.8 x 1.4 cm Problems: Additional Assessment/Plan 1. Non Oliguric Acute Kindey injury on CKD( unknown stage) due to prerenal azotemia + ATN 2. H/o Possible CKD 3. R/o Acute CVA vs TIA 4. Coronary artery disease 5. DM II 6. HTN 7. HL 8. Right kidney cyst 1.3 cm in size and Hypoechoic mass in the mid to lower left kidney measuring 1.8 x 1.4 cm which may be cystic or solid. 9. Hyperuricemia without gout Plan : Cr remains elevated, BP also high, D/c IVF NS , start procardia XL for better BP control pt has TU on CKD, will order urine studies, Renal US c/w Medical sylvia rudd but it showed Right kidney cyst 1.3 cm in size and Hypoechoic mass in the mid to lower left kidney measuring 1.8 x 1.4 cm which may be cystic or solid. - will order MRI abd+ pelvis to better evaluate left kidney mass. URic acid 8.0- will start allopurinol 100mg po daily Consultation Date/Type/Reason Admit Date/Time Jan 09, 2017 at 12:48 Initial Consult Date 01/09/17 Type of Consultation: NEPHROLOGY Referring Provider: NESTOR TAYLOR 24 HR Interval Summary Free Text/Dictation Cr remains elevated 3.2 , BP is very high today AM systolic 200s, afebrile, Exam/Review of Systems Vital Signs Vitals Vital Signs Date Time Temp Pulse Resp B/P Pulse Ox O2 Delivery O2 Flow Rate FiO2 01/10/17 07:59 98.5 95 20 201/93 99 01/09/17 20:31 Room Air Intake and Output 01/09/17 01/09/17 01/10/17 15:00 23:00 07:00 Intake Total 220 ml 460 ml Output Total 800 ml Balance 220 ml -340 ml Exam Constitutional: alert Respiratory: clear to auscultation, diminished breath sounds, normal air movement Cardiovascular: nl pulses, regular rate and rhythm Gastrointestinal: non-tender, soft Musculoskeletal: nl extremities to inspection, nl gait and stance Extremities: normal pulses Neurological: ENTRY LEVEL ACCOUNTING CLERK II-XII intact, nl mental status, nl speech, nl strength, other (LE weakness and numbness ) Results Result Diagram: 01/10/1760401/10/17 06 Results 24 hrs Laboratory Tests Test 01/09/17 10:00 01/09/17 10:50 01/09/17 16:21 01/09/17 21:03 White Blood Count 7.4 Red Blood Count 3.61 L Hemoglobin 11.0 L Hematocrit 32.1 L Mean Corpuscular Volume 88.9 Mean Corpuscular Hemoglobin 30.5 Mean Corpuscular Hemoglobin Concent 34.3 Red Cell Distribution Width 13.3 Platelet Count 281 Mean Platelet Volume 10.5 #H Neutrophils % 71.3 Lymphocytes % 18.8 Monocytes % 6.6 Eosinophils % 2.2 Basophils % 0.7 Nucleated Red Blood Cells % 0.0 Neutrophils # 5.3 Lymphocytes # 1.4 Monocytes # 0.5 Eosinophils # 0.2 Basophils # 0.1 Nucleated Red Blood Cells # 0.0 Urine Color YELLOW Urine Clarity CLEAR Urine pH 6.0 Urine Specific [place] 1.013 Urine Ketones NEGATIVE Urine Nitrite NEGATIVE Urine Bilirubin NEGATIVE Urine Urobilinogen NEGATIVE Urine Leukocyte Esterase NEGATIVE Urine Microscopic RBC 1 Urine Microscopic WBC 1 Urine Bacteria FEW A Urine Eosinophils % 0.0 Urine Hemoglobin NEGATIVE Urine Random Creatinine 73.19 Urine Random Sodium 88 Urine Protein/Creatinine Ratio 20.23 Urine Glucose 3+ H Urine Total Protein Sodium Level 140 Potassium Level 4.2 Chloride Level 109 Carbon Dioxide Level 24 Anion Gap 11 Blood Urea Nitrogen 33 H Creatinine 3.21 H Glucose Level 144 Calcium Level 8.3 L Total Bilirubin 0.1 L Direct Bilirubin 0.00 Indirect Bilirubin 0.1 Aspartate Amino Transf (AST/SGOT) 26 Alanine Aminotransferase (ALT/SGPT) 38 Alkaline Phosphatase 68 Troponin I 0.033 Total Protein 5.5 L Albumin 2.7 L Globulin 2.80 Albumin/Globulin Ratio 0.96 Lipase 130 Hemoglobin A1c 7.9 H Triglycerides Level 205 H Cholesterol Level 176 LDL Cholesterol, Calculated 101 HDL Cholesterol 34 Cholesterol/HDL Ratio 5.1 Thyroid Stimulating Hormone (TSH) 2.230 Bedside Glucose 110 176 Test 01/09/17 21:57 01/10/17 06:05 01/10/17 08:09 Bedside Glucose 153 172 White Blood Count 7.9 Red Blood Count 3.61 L Hemoglobin 10.9 L Hematocrit 32.1 L Mean Corpuscular Volume 88.9 Mean Corpuscular Hemoglobin 30.2 Mean Corpuscular Hemoglobin Concent 34.0 Red Cell Distribution Width 13.8 Platelet Count 300 Mean Platelet Volume 10.6 H Neutrophils % 66.4 Lymphocytes % 21.3 Monocytes % 9.4 Eosinophils % 1.4 Basophils % 1.0 Nucleated Red Blood Cells % 0.0 Neutrophils # 5.2 Lymphocytes # 1.7 Monocytes # 0.7 Eosinophils # 0.1 Basophils # 0.1 Nucleated Red Blood Cells # 0.0 Sodium Level 139 Potassium Level 4.1 Chloride Level 107 Carbon Dioxide Level 25 Anion Gap 11 Blood Urea Nitrogen 31 H Creatinine 3.23 H Glucose Level 154 Uric Acid 8.0 H Calcium Level 8.6 Phosphorus Level 4.0 Magnesium Level 1.1 L Total Bilirubin 0.2 Direct Bilirubin 0.00 Indirect Bilirubin 0.2 Aspartate Amino Transf (AST/SGOT) 27 Alanine Aminotransferase (ALT/SGPT) 40 Alkaline Phosphatase 73 Creatine Kinase 260 H Total Protein 5.7 L Albumin 2.7 L Globulin 3.00 Albumin/Globulin Ratio 0.90 Medications Medications Current Medications Clopidogrel Bisulfate (plaVIX) 75 mg DAILY PO Last administered on 01/10/17 08 :17; Admin Dose 75 MG; Start 01/10/17 at 09:00 Levetiracetam (Keppra) 500 mg BID PO Last administered on 01/10/17 08:17; Admin Dose 500 MG; Start 01/09/17 at 21:00 Metoprolol Succinate (Toprol Xl) 100 mg DAILY PO Last administered on 08:17; Admin Dose 100 MG; Start 01/10/17 at 09:00 Pantoprazole (Protonix Tab) 40 mg DAILY PO Last administered on 01/10/17 08:16 ; Admin Dose 40 MG; Start 01/10/17 at 09:00 Tamsulosin HCl (Flomax) 0.4 mg DAILY PO Last administered on 01/10/17 08:17; Admin Dose 0.4 MG; Start 01/10/17 at 09:00 Ondansetron HCl (Zofran Inj) 4 mg Q6H PRN IV NAUSEA AND/OR VOMITING; Start at 13:30 Acetaminophen (Tylenol Tab) 650 mg Q6H PRN PO PAIN LEVEL 1-3 OR FEVER Last administered on 01/10/17 08:20; Admin Dose 650 MG; Start 01/09/17 at 13:30 Acetaminophen (Tylenol Supp) 650 mg Q6H PRN [place] PAIN LEVEL 1-3 OR FEVER; Start 01/09/17 at 13:30 Acetaminophen/ Hydrocodone Bitart ([place] (5/325)) 1 tab Q6H PRN PO MODERATE PAIN LEVEL 4-6 Last administered on 01/09/17 18:41; Admin Dose 1 TAB; Start 01/09/17 at 13:30 Docusate Sodium (Colace) 100 mg Q12H PRN PO CONSTIPATION; Start 01/09/17 at 13 :30 Heparin Sodium (Porcine) (Heparin (5000 Units/0.5 ml)) 5,000 unit Q12 SC Last administered on 01/09/17 21:21; Admin Dose 5,000 UNIT; Start 01/09/17 at 21: 00 Diagnostic Test (Pha) (Accu-Chek) 1 ea 02 XX ; Start 01/10/17 at 02:00 Insulin Glargine 13 unit 13 unit DAILY@20 SC Last administered on 01/09/17 21 :06; Admin Dose 13 UNIT; Start 01/09/17 at 20:00 Ceftriaxone Sodium (Rocephin) 50 ml @ 100 mls/hr Q24H IVPB ; Start 01/09/17 at 14:15 Miscellaneous Information 1 ea NOTE XX ; Start 01/09/17 at 14:30 Glucose (Glutose) 15 gm Q15M PRN PO DECREASED GLUCOSE; Start 01/09/17 at 14:30 Glucose (Glutose) 22.5 gm Q15M PRN PO DECREASED GLUCOSE; Start 01/09/17 at 14: 30 Dextrose (D50w Syringe) 25 ml Q15M PRN IV DECREASED GLUCOSE; Start 01/09/17 at 14:30 Dextrose (D50w Syringe) 50 ml Q15M PRN IV DECREASED GLUCOSE; Start 01/09/17 at 14:30 Glucagon (Glucagen) 1 mg Q15M PRN IM DECREASED GLUCOSE; Start 01/09/17 at 14: 30 Glucose (Glutose) 15 gm Q15M PRN BUCCAL DECREASED GLUCOSE; Start 01/09/17 at 14:30 Hydralazine HCl (Apresoline) 10 mg Q6H PRN IV SBP>170 Last administered on 01/10 08:06; Admin Dose 10 MG; Start 01/09/17 at 14:30 Acetaminophen/ Hydrocodone Bitart ([place] (10/325)) 1 tab Q4H PRN PO SEVERE PAIN LEVEL 7-10; Start 01/09/17 at 18:30 Influenza Virus Vaccine (Fluzone) 0.5 ml ONCE ONCE IM* ; Start 01/11/17 at 09:00 ; Stop 01/11/17 at 09:01 [place] GONZALEZ MD Jan 10, 2017 08:28
[2017-01-10] MEDS: HEPARIN 5,000 UNIT/0.5 ML VIAL SC SCH ×2 (08:50→21:40)
[2017-01-10] MEDS: NIFEdipine (XL) 60 MG TAB PO SCH (08:54)
[2017-01-10] MEDS: INSULIN ASPART [NOVOLOG] 3 ML PEN SC SCH ×7 (09:37→21:44)
[2017-01-10] MEDS: HYDROCODONE/APAP (5/325) TAB PO PRN ×2 (13:36→21:52)
--- NOTE | 2017-01-10 13:41 | PN ---
Date/Time of Note Date/Time of Note DATE: 01/10/17 TIME: 13:41 Assessment/Plan VTE Prophylaxis VTE Prophylaxis Intervention: heparin Lines/Catheters IV [facility]from [facility] Assessment/Plan Chief Complaint/Hosp Course 81-year-old male with a past medical history of hypertension, dyslipidemia, type 2 diabetes, diabetic neuropathy, coronary artery disease, COPD, meningioma with right frontoparietal craniotomy, TIAs, BPH, right ICA stenosis, who presented to the emergency room for evaluation of generalized weakness, headache , B/L lower extremity pain and numbness who also noted with elevated creatinine and HTN urgency. 1. Lower extremity pain and numbness. Most likely his symptoms are secondary to peripheral neuropathy. Improving with pain medications. Ultrasound negative for DVT. -We will start patient on gabapentin and will continue Pain meds PRN. -Follow-up pending MRI brain. 2. Hypertensive urgency. Improving. -Hydralazine IV PRN SBP greater than 170. -On metoprolol and nifedipine. Nephrology managing blood pressure. 3. Acute kidney injury, on chronic kidney disease. Ultrasound renal with Hypoechoic mass in the mid to lower left kidney measuring 1.8 x 1.4 cm which may be cystic or solid. Also a benign cyst on right kidney. -Follow-up with nephrology recommendations-MRI is ordered to follow-up on the cyst. -Monitor renal function closely and avoid nephrotoxins. 4. Anemia, likely chronic. H&H stable. -Monitor. 5. Type 2 diabetes with DM neuropathy. A1c 8.0. -Hold oral agents for now. Continue with Accu-Cheks/insulin sliding scale/and Lantus insulin. 6.Dyslipidemia -On statin. 7. COPD. Stable. -PRN TRACY 8. Meningioma with right frontoparietal craniotomy 9. BPH -Continue home medications. 10.Right ICA stenosis. Follow-up ultrasound stable. Prophylaxis: Heparin/Protonix. Patient was seen in collaboration with . Problems: Subjective 24 Hr Interval Summary Free Text/Dictation Overall, patient is doing better. He is sitting up in a chair. Has been tolerating diet and activities. However, patient continues to have lower extremity pain intermittently. Today he does not have any numbness or tingling. Exam/Review of Systems Vital Signs Vitals Vital Signs Date Time Temp Pulse Resp B/P Pulse Ox O2 Delivery O2 Flow Rate FiO2 01/10/17 12:54 97.7 88 20 135/65 96 01/09/17 20:31 Room Air Intake and Output 01/09/17 01/09/17 01/10/17 15:00 23:00 07:00 Intake Total 220 ml 460 ml Output Total 800 ml Balance 220 ml -340 ml Exam General: Well developed,adequately built, not in any acute distress . HEENT: Normocephalic, Atraumatic, No laceration or hematoma; Eyes: PEERL, Conjunctiva clear, Anicteric sclera Neck: Supple without any lymphadenopathy, nontender, no JVD, no carotid bruits, trachea midline, no thyromegaly Cardiac: S1, S2 auscultated, regular rhythm and rate, no mumurs or gallop Pulmonary: Normal respiratory effort. Chest clear to auscultation bilaterally, no adventitious breath sounds GI: Abdomen normal to inspection. Soft, non tender, non- distended, no masses, no rebound tenderness or guarding. Bowel sounds active on all four quadrants Genitourinary: Deferred Extremities: Having LEs pain, left>right. No cyanosis, clubbing, or edema. Pulses [2+] bilaterally. Full ROM on all four extremities. No focal weakness appreciated. Neurologic: Alert to person, place, time, and situation. Affect appropriate, intact sensation. Skin: Clean,dry, and intact. No ecchymosis, no rashes, or lesions Results Result Diagram: 01/10/1760401/10/17604 Results 24 hrs Laboratory Tests Test 01/09/17 16:21 01/09/17 21:03 01/09/17 21:57 01/10/17 06:05 Bedside Glucose 110 176 153 White Blood Count 7.9 Red Blood Count 3.61 L Hemoglobin 10.9 L Hematocrit 32.1 L Mean Corpuscular Volume 88.9 Mean Corpuscular Hemoglobin 30.2 Mean Corpuscular Hemoglobin Concent 34.0 Red Cell Distribution Width 13.8 Platelet Count 300 Mean Platelet Volume 10.6 H Neutrophils % 66.4 Lymphocytes % 21.3 Monocytes % 9.4 Eosinophils % 1.4 Basophils % 1.0 Nucleated Red Blood Cells % 0.0 Neutrophils # 5.2 Lymphocytes # 1.7 Monocytes # 0.7 Eosinophils # 0.1 Basophils # 0.1 Nucleated Red Blood Cells # 0.0 Sodium Level 139 Potassium Level 4.1 Chloride Level 107 Carbon Dioxide Level 25 Anion Gap 11 Blood Urea Nitrogen 31 H Creatinine 3.23 H Glucose Level 154 Uric Acid 8.0 H Calcium Level 8.6 Phosphorus Level 4.0 Magnesium Level 1.1 L Total Bilirubin 0.2 Direct Bilirubin 0.00 Indirect Bilirubin 0.2 Aspartate Amino Transf (AST/SGOT) 27 Alanine Aminotransferase (ALT/SGPT) 40 Alkaline Phosphatase 73 Creatine Kinase 260 H Total Protein 5.7 L Albumin 2.7 L Globulin 3.00 Albumin/Globulin Ratio 0.90 Test 01/10/17 08:09 01/10/17 09:34 01/10/17 12:06 Bedside Glucose 172 153 148 Medications Medications Current Medications Clopidogrel Bisulfate (plaVIX) 75 mg DAILY PO Last administered on 01/10/17 08 :17; Admin Dose 75 MG; Start 01/10/17 at 09:00 Levetiracetam (Keppra) 500 mg BID PO Last administered on 01/10/17 08:17; Admin Dose 500 MG; Start 01/09/17 at 21:00 Metoprolol Succinate (Toprol Xl) 100 mg DAILY PO Last administered on 08:17; Admin Dose 100 MG; Start 01/10/17 at 09:00 Pantoprazole (Protonix Tab) 40 mg DAILY PO Last administered on 01/10/17 08:16 ; Admin Dose 40 MG; Start 01/10/17 at 09:00 Tamsulosin HCl (Flomax) 0.4 mg DAILY PO Last administered on 01/10/17 08:17; Admin Dose 0.4 MG; Start 01/10/17 at 09:00 Ondansetron HCl (Zofran Inj) 4 mg Q6H PRN IV NAUSEA AND/OR VOMITING; Start at 13:30 Acetaminophen (Tylenol Tab) 650 mg Q6H PRN PO PAIN LEVEL 1-3 OR FEVER Last administered on 01/10/17 08:20; Admin Dose 650 MG; Start 01/09/17 at 13:30 Acetaminophen (Tylenol Supp) 650 mg Q6H PRN [place] PAIN LEVEL 1-3 OR FEVER; Start 01/09/17 at 13:30 Acetaminophen/ Hydrocodone Bitart ([place] (5/325)) 1 tab Q6H PRN PO MODERATE PAIN LEVEL 4-6 Last administered on 01/10/17 13:36; Admin Dose 1 TAB; Start at 13:30 Docusate Sodium (Colace) 100 mg Q12H PRN PO CONSTIPATION; Start 01/09/17 at 13 :30 Heparin Sodium (Porcine) (Heparin (5000 Units/0.5 ml)) 5,000 unit Q12 SC Last administered on 01/10/17 08:50; Admin Dose 5,000 UNIT; Start 01/09/17 at 21:00 Diagnostic Test (Pha) (Accu-Chek) 1 ea 02 XX ; Start 01/10/17 at 02:00 Insulin Glargine 13 unit 13 unit DAILY@20 SC Last administered on 01/09/17 21 :06; Admin Dose 13 UNIT; Start 01/09/17 at 20:00 Ceftriaxone Sodium (Rocephin) 50 ml @ 100 mls/hr Q24H IVPB ; Start 01/09/17 at 14:15 Miscellaneous Information 1 ea NOTE XX ; Start 01/09/17 at 14:30 Glucose (Glutose) 15 gm Q15M PRN PO DECREASED GLUCOSE; Start 01/09/17 at 14:30 Glucose (Glutose) 22.5 gm Q15M PRN PO DECREASED GLUCOSE; Start 01/09/17 at 14: 30 Dextrose (D50w Syringe) 25 ml Q15M PRN IV DECREASED GLUCOSE; Start 01/09/17 at 14:30 Dextrose (D50w Syringe) 50 ml Q15M PRN IV DECREASED GLUCOSE; Start 01/09/17 at 14:30 Glucagon (Glucagen) 1 mg Q15M PRN IM DECREASED GLUCOSE; Start 01/09/17 at 14: 30 Glucose (Glutose) 15 gm Q15M PRN BUCCAL DECREASED GLUCOSE; Start 01/09/17 at 14:30 Hydralazine HCl (Apresoline) 10 mg Q6H PRN IV SBP>170 Last administered on 01/10 08:06; Admin Dose 10 MG; Start 01/09/17 at 14:30 Acetaminophen/ Hydrocodone Bitart ([place] (10/325)) 1 tab Q4H PRN PO SEVERE PAIN LEVEL 7-10; Start 01/09/17 at 18:30 Influenza Virus Vaccine (Fluzone) 0.5 ml ONCE ONCE IM* ; Start 01/11/17 at 09:00 ; Stop 01/11/17 at 09:01 Nifedipine (Procardia Xl) 60 mg DAILY PO Last administered on 01/10/17t 08:54; Admin Dose 60 MG; Start 01/10/17 at 09:00 PB SAMAYOA NP Jan 10, 2017 13:41
[2017-01-10] MEDS: CEFTRIAXONE 1 GM/50 ML (PMX) 50 ML IVPB SCH (14:36)
[2017-01-10] MEDS: HYDROCODONE/APAP (10/325) TAB PO PRN (17:40)
--- NOTE | 2017-01-10 17:43 | RADRPT ---
PROCEDURE: MRI Brain without contrast. CLINICAL INDICATION: Intracranial mass TECHNIQUE: Routine MRI of the brain performed without intravenous contrast. COMPARISON: CT brain 01/09/2017, MRI brain 04/21/2015 FINDINGS: Diffusion: No evidence of acute infarct, recent ischemia, or recent ictal focus. Hemorrhage: No evidence of focal hematoma or subarachnoid hemorrhage. No evidence for remote blood d egradation products. Mass effect/midline shift: Although less well delineated without intravenous contrast there is over all similar appearance to the previously seen right parietal extra-axial appearing mass measuring 3. 2 x 2.1 x 2.2 cm underlying the patients right sided craniotomy defect. Similar appearance of mild e kristina surrounding the mass appreciated on T2 - FLAIR weighted images. Mild local mass effect without midline shift or herniation is unchanged. Parenchymal volume: Mild central parenchymal volume loss is evident. Ventricular system: Concordant with the degree of parenchymal volume. Parenchymal signal changes: Nonspecific small scattered areas of T2 and FLAIR signal hyperintensity measuring a few millimeters are seen in the supratentorial white matter most commonly due to chronic moderate microvascular ischemic changes. Differential considerations include sequelae of migraines; prior parenchymal injury from infectious or inflammatory/demyelinating process; vasculopathy. Vasculature: Appropriate flow voids suggesting patency of the central arterial system and visualize d dural venous sinuses. Paranasal sinuses: Small mucous retention cyst of the right maxillary sinus. Mastoid air cells: Clear. Calvarium: Postoperative changes from right frontal parietal craniotomy. Extracranial soft tissues: Within normal limits. IMPRESSION: No acute intracranial abnormalities. Although less well delineated without intravenous contrast there is overall similar appearance to th e previously seen right parietal extra-axial appearing mass measuring 3.2 x 2.1 x 2.2 cm underlying the patients right sided craniotomy defect. Similar appearance of mild edema surrounding the mass ap preciated on T2 - FLAIR weighted images. Mild local mass effect without midline shift or herniation is unchanged. RPTAT: AADD .Ruiz Espinosa MD, Date Time Electronically viewed and signed by .Ruiz Espinosa MD, MD on 01/10/2017 17:42 .B/
--- NOTE | 2017-01-10 21:17 | RADRPT ---
PROCEDURE: MRI Abdomen and pelvis without contrast. CLINICAL INDICATION: Abdominal pain and weight loss. Left renal cyst. TECHNIQUE: Multiplanar and multisequence MRI of the abdomen and pelvis was performed without contra st. Evaluation is partially limited due to motion artifact. COMPARISON: CT and ultrasound dated 01/09/2017. FINDINGS: There are small bilateral pleural effusions. The visualized heart is enlarged. There is diffuse fatty infiltration of the liver. No focal hepatic lesion is identified. There is no intra or extrahepatic biliary ductal dilatation. The gallbladder, spleen, adrenal glands are unrem arkable. The pancreas is normal in segment density with no definite mass lesion or ductal dilatatio n. There are simple cysts in both kidneys, with a dominant cyst at the upper pole of the right kidne y measuring 1.3 cm. There is no solid renal mass or hydronephrosis. The aorta is nonaneurysmal. There is no mesenteric, retroperitoneal, or pelvic adenopathy. There is sigmoid diverticulosis without bowel wall thickening or evidence of obstruction. There is nonspec ific trace fluid in the perigastric region extending to the peripancreatic region as well as scatter ed throughout the mesentery. There is also trace free fluid layering within the pelvis. There is a d efect of the prostate gland, suggestive of prior TURP. The prostate gland and seminal vesicles are o therwise unremarkable. The urinary bladder is unremarkable. No concerning marrow signal abnormality is identified. The surrounding soft tissues are unremarkabl e. IMPRESSION: 1. Small bilateral pleural effusions. 2. Cardiomegaly. 3. No evidence of neoplastic disease within the abdomen or pelvis, as questioned, with evaluation p artially limited due to motion artifact and the lack of intravenous contrast. 4. Nonspecific fluid in the perigastric and peripancreatic regions and scattered along the mesenter y. Nonspecific trace fluid layering within the pelvis. 5. Sigmoid diverticulosis. 6. Simple bilateral renal cysts. RPTAT: HLBP .Eloy Du MD, MD Date Time Electronically viewed and signed by .Eloy Du MD, MD on 01/10/2017 21:17 .P/
[2017-01-10] MEDS: GABAPENTIN 300 MG CAP PO SCH (21:36)
[2017-01-10] MEDS: INSULIN GLARGINE [LANtus] 3 ML PEN SC SCH (21:45)
[2017-01-11] VITALS (14 sets, daily range): BP systolic 102–160; BP diastolic 56–89; PULSE 68–83; RESP 16–20
[2017-01-11] MEDS: ACCU-CHEK XX SCH (02:00)
[2017-01-11] MEDS: HYDROCODONE/APAP (5/325) TAB PO PRN (04:35)
[2017-01-11 06:21] LABS: BASOPHIL # 0.1 10^3/ul (0.0-0.1); BASOPHILS % 0.7 % (0.0-2.0); EOSINOPHILS # 0.3 10^3/ul (0.0-0.5); EOSINOPHILS % 3.8 % (0.0-7.0); HEMATOCRIT 31.6 % (42.0-52.0); HEMOGLOBIN 10.6 g/dl (14.0-18.0); LYMPHOCYTES # 1.8 10^3/ul (0.8-2.9); MEAN CORPUSCULAR HEMOGLOBIN 29.6 pg (29.0-33.0); MEAN CORPUSCULAR HGB CONC 33.5 g/dl (32.0-37.0); MEAN CORPUSCULAR VOLUME 88.3 fl (82.0-101.0); MEAN PLATELET VOLUME 10.4 fl (7.4-10.4); MONOCYTE # 0.7 10^3/ul (0.3-0.9); MONOCYTES % 10.4 % (0.0-11.0); NEUTROPHILS % 58.8 % (39.0-77.0); PLATELET COUNT 305 10^3/UL (140-415); RED BLOOD COUNT 3.58 10^6/ul (4.70-6.10); RED CELL DISTRIBUTION WIDTH 13.4 % (11.5-14.5); WHITE BLOOD COUNT 6.8 10^3/ul (4.8-10.8)
[2017-01-11 07:05] LABS: CALCIUM 8.5 mg/dl (8.4-10.2); CREATININE 3.34 mg/dl (0.61-1.24); MAGNESIUM 1.3 mg/dl (1.7-2.5)
[2017-01-11] MEDS: INSULIN ASPART [NOVOLOG] 3 ML PEN SC SCH ×7 (08:00→20:31)
[2017-01-11] MEDS: CLOPIDOGREL 75 MG TAB PO SCH (08:28)
[2017-01-11] MEDS: TAMSULOSIN (SR) 0.4 MG CAP PO SCH (08:28)
[2017-01-11] MEDS: GABAPENTIN 300 MG CAP PO SCH ×3 (08:29→20:24)
[2017-01-11] MEDS: LEVETIRACETAM 500 MG TAB PO SCH ×2 (08:30→20:24)
[2017-01-11] MEDS: PANTOPRAZOLE (EC) 40 MG TAB PO SCH (08:34)
[2017-01-11] MEDS: HEPARIN 5,000 UNIT/0.5 ML VIAL SC SCH ×2 (08:34→20:25)
[2017-01-11] MEDS: METOPROLOL (XL) 100 MG TAB PO SCH (08:35)
[2017-01-11] MEDS ORDERED: INFLUENZA VIRUS VACCINE 0.5 ML (DISPENSING) IM* ONE (09:00)
[2017-01-11] MEDS: NIFEdipine (XL) 60 MG TAB PO SCH (10:31)
[2017-01-11] MEDS: HYDROCODONE/APAP (10/325) TAB PO PRN (11:41)
[2017-01-11] MEDS: CEFTRIAXONE 1 GM/50 ML (PMX) 50 ML IVPB SCH (13:34)
--- NOTE | 2017-01-11 13:35 | PN ---
Date/Time of Note Date/Time of Note DATE: 01/11/17 TIME: 13:31 Assessment/Plan VTE Prophylaxis VTE Prophylaxis Intervention: anti-embolic stocking Lines/Catheters IV Catheter Type (from Nrs): Peripheral IV Assessment/Plan Problems: (1) Acute renal failure Status: Acute Comment: Nephrology is seen the patient. His renal function appears to be stable although this is worse than it was in 2016. Based on nephrology recommendations he is close to point where he can be discharged worked up as an outpatient. Please note his primary care physician is Dr. Francisco Yusuf Qualifiers: Acute renal failure type: unspecified Qualified Code: N17.9 - Acute renal failure, unspecified acute renal failure type (2) Generalized weakness Status: Acute Comment: Clearing up nicely (3) Diabetes mellitus type 2 in nonobese Status: Chronic Comment: Fair control. (4) Essential hypertension Status: Chronic Comment: Adequate control. (5) Hyperlipidemia associated with type 2 diabetes mellitus Status: Chronic Comment: Continue on statin therapy (6) Meningioma Status: Chronic Comment: Stable and unchanged Subjective 24 Hr Interval Summary Free Text/Dictation Patient reports he is feeling relatively well. No complaints and he would like to know when he can go home. Constitutional: no complaints Respiratory: no complaints Cardiovascular: no complaints Gastrointestinal: no complaints Exam/Review of Systems Vital Signs Vitals Vital Signs Date Time Temp Pulse Resp B/P Pulse Ox O2 Delivery O2 Flow Rate FiO2 01/11/17 12:08 75 01/11/17 11:52 97.9 17 143/88 100 01/09/17 20:31 Room Air Intake and Output 01/10/17 01/10/17 01/11/17 15:00 23:00 07:00 Intake Total 450 ml 450 ml Output Total 850 ml 500 ml Balance -400 ml -50 ml Exam Constitutional: alert, oriented Neck: non-tender, supple Respiratory: clear to auscultation, normal air movement Cardiovascular: nl pulses, regular rate and rhythm Results Result Diagram: 01/11/17 0541 01/11/17 0541 Results 24 hrs Laboratory Tests Test 01/10/17 17:31 01/10/17 21:42 01/11/17 02:29 01/11/17 05:41 Bedside Glucose 168 226 H 116 White Blood Count 6.8 Red Blood Count 3.58 L Hemoglobin 10.6 L Hematocrit 31.6 L Mean Corpuscular Volume 88.3 Mean Corpuscular Hemoglobin 29.6 Mean Corpuscular Hemoglobin Concent 33.5 Red Cell Distribution Width 13.4 Platelet Count 305 Mean Platelet Volume 10.4 Neutrophils % 58.8 Lymphocytes % 26.0 Monocytes % 10.4 Eosinophils % 3.8 Basophils % 0.7 Nucleated Red Blood Cells % 0.0 Neutrophils # 4.0 Lymphocytes # 1.8 Monocytes # 0.7 Eosinophils # 0.3 Basophils # 0.1 Nucleated Red Blood Cells # 0.0 Sodium Level 140 Potassium Level 4.0 Chloride Level 108 Carbon Dioxide Level 25 Anion Gap 11 Blood Urea Nitrogen 35 H Creatinine 3.34 H Glucose Level 133 Calcium Level 8.5 Magnesium Level 1.3 L Test 01/11/17 08:26 01/11/17 11:47 Bedside Glucose 136 181 Medications Medications Current Medications Clopidogrel Bisulfate (plaVIX) 75 mg DAILY PO Last administered on 01/11/17 08 :28; Admin Dose 75 MG; Start 01/10/17 at 09:00 Levetiracetam (Keppra) 500 mg BID PO Last administered on 01/11/17 08:30; Admin Dose 500 MG; Start 01/09/17 at 21:00 Metoprolol Succinate (Toprol Xl) 100 mg DAILY PO Last administered on 08:35; Admin Dose 100 MG; Start 01/10/17 at 09:00 Pantoprazole (Protonix Tab) 40 mg DAILY PO Last administered on 01/11/17 08:34 ; Admin Dose 40 MG; Start 01/10/17 at 09:00 Tamsulosin HCl (Flomax) 0.4 mg DAILY PO Last administered on 01/11/17 08:28; Admin Dose 0.4 MG; Start 01/10/17 at 09:00 Ondansetron HCl (Zofran Inj) 4 mg Q6H PRN IV NAUSEA AND/OR VOMITING; Start at 13:30 Acetaminophen (Tylenol Tab) 650 mg Q6H PRN PO PAIN LEVEL 1-3 OR FEVER Last administered on 01/10/17 08:20; Admin Dose 650 MG; Start 01/09/17 at 13:30 Acetaminophen (Tylenol Supp) 650 mg Q6H PRN [place] PAIN LEVEL 1-3 OR FEVER; Start 01/09/17 at 13:30 Acetaminophen/ Hydrocodone Bitart ([place] (5/325)) 1 tab Q6H PRN PO MODERATE PAIN LEVEL 4-6 Last administered on 01/11/17 04:35; Admin Dose 1 TAB; Start at 13:30 Docusate Sodium (Colace) 100 mg Q12H PRN PO CONSTIPATION; Start 01/09/17 at 13 :30 Heparin Sodium (Porcine) (Heparin (5000 Units/0.5 ml)) 5,000 unit Q12 SC Last administered on 01/11/17 08:34; Admin Dose 5,000 UNIT; Start 01/09/17 at 21:00 Diagnostic Test (Pha) (Accu-Chek) 1 ea 02 XX Last administered on 01/11/17 02: 00; Admin Dose 1 EA; Start 01/10/17 at 02:00 Insulin Glargine 13 unit 13 unit DAILY@20 SC Last administered on 01/10/17 21: 45; Admin Dose 13 UNIT; Start 01/09/17 at 20:00 Ceftriaxone Sodium (Rocephin) 50 ml @ 100 mls/hr Q24H IVPB Last administered on 01/10/17 14:36; Admin Dose 100 MLS/HR; Start 01/09/17 at 14:15 Miscellaneous Information 1 ea NOTE XX ; Start 01/09/17 at 14:30 Glucose (Glutose) 15 gm Q15M PRN PO DECREASED GLUCOSE; Start 01/09/17 at 14:30 Glucose (Glutose) 22.5 gm Q15M PRN PO DECREASED GLUCOSE; Start 01/09/17 at 14: 30 Dextrose (D50w Syringe) 25 ml Q15M PRN IV DECREASED GLUCOSE; Start 01/09/17 at 14:30 Dextrose (D50w Syringe) 50 ml Q15M PRN IV DECREASED GLUCOSE; Start 01/09/17 at 14:30 Glucagon (Glucagen) 1 mg Q15M PRN IM DECREASED GLUCOSE; Start 01/09/17 at 14: 30 Glucose (Glutose) 15 gm Q15M PRN BUCCAL DECREASED GLUCOSE; Start 01/09/17 at 14:30 Hydralazine HCl (Apresoline) 10 mg Q6H PRN IV SBP>170 Last administered on 01/10 08:06; Admin Dose 10 MG; Start 01/09/17 at 14:30 Acetaminophen/ Hydrocodone Bitart ([place] ()) 1 tab Q4H PRN PO SEVERE PAIN LEVEL 7-10 Last administered on 01/11/17 11:41; Admin Dose 1 TAB; Start 01/09/17 at 18:30 Nifedipine (Procardia Xl) 60 mg DAILY PO Last administered on 01/11/17 10:31; Admin Dose 60 MG; Start 01/10/17 at 09:00 Gabapentin 300 mg 300 mg TID PO Last administered on 01/11/17 08:29; Admin Dose 300 MG; Start 01/10/17 at 21:00 Magnesium Sulfate/ Dextrose (Magnesium Sulfate/D5W) 106 ml @ 35.333 mls/ hr ONCE ONCE IVPB ; Start 01/11/17 at 14:00; Stop 01/11/17 at 16:59 SHARRI FERNANDEZ MD Jan 11, 2017 13:34
[2017-01-11] MEDS ORDERED: MAGNESIUM SULFATE 3 GM in DEXTROSE 5% 100 ML IVPB ONE (14:00)
--- NOTE | 2017-01-11 16:34 | CONS ---
Date/Time of Note Date/Time of Note DATE: 01/11/17 TIME: 16:32 Assessment/Plan Assessment/Plan Chief Complaint/Hosp Course 81-year-old male with a past medical history of hypertension, dyslipidemia, type 2 diabetes, diabetic neuropathy, coronary artery disease, COPD, meningioma with right frontoparietal craniotomy, TIAs, BPH, right ICA stenosis, who presented to the emergency room for evaluation of generalized weakness, headache , B/L lower extremity pain and numbness.pt is admitted to telemetry floor and plan is to have MRI brain to rule out Acute CVA- Renal has been consulted for elevated Cr of 3.21. pt is also noted to have right renal cyst 1.3cm and left mid to lower left kidney echogenic lesion measuring 1.8 x 1.4 cm Problems: Additional Assessment/Plan 1. Non Oliguric Acute Kindey injury on CKD( unknown stage) due to prerenal azotemia + ATN 2. H/o Possible CKD 3. R/o Acute CVA vs TIA 4. Coronary artery disease 5. DM II 6. HTN 7. HL 8. Right kidney cyst 1.3 cm in size and Hypoechoic mass in the mid to lower left kidney measuring 1.8 x 1.4 cm which may be cystic or solid. 9. Hyperuricemia without gout Plan : Cr remains elevated, BP well controlled with procardia XL Renal US c/w Medical sylvia rudd but it showed Right kidney cyst 1.3 cm in size and Hypoechoic mass in the mid to lower left kidney measuring 1.8 x 1.4 cm which may be cystic or solid. -MRI abdomen + pelvis negative for acute mass continue allopurinol 100mg po daily for hyperuricemia will follow up Consultation Date/Type/Reason Admit Date/Time Jan 09, 2017 at 12:48 Initial Consult Date 01/09/17 Type of Consultation: NEPHROLOGY Referring Provider: NESTOR TAYLOR 24 HR Interval Summary Free Text/Dictation Cr remains elevated, BP stable, afebrile Exam/Review of Systems Vital Signs Vitals Vital Signs Date Time Temp Pulse Resp B/P Pulse Ox O2 Delivery O2 Flow Rate FiO2 01/11/17 16:10 83 01/11/17 16:01 98.3 17 102/56 98 01/09/17 20:31 Room Air Intake and Output 01/10/17 01/10/17 01/11/17 15:00 23:00 07:00 Intake Total 450 ml 450 ml Output Total 850 ml 500 ml Balance -400 ml -50 ml Exam Constitutional: alert Respiratory: clear to auscultation, diminished breath sounds, normal air movement Cardiovascular: nl pulses, regular rate and rhythm Gastrointestinal: non-tender, soft Musculoskeletal: nl extremities to inspection, nl gait and stance Extremities: normal pulses Neurological: LINE LEAD II-XII intact, nl mental status, nl speech, nl strength, other (LE weakness and numbness ) Results Result Diagram: 01/11/17 0541 01/11/17 0541 Results 24 hrs Laboratory Tests Test 01/10/17 17:31 01/10/17 21:42 01/11/17 02:29 01/11/17 05:41 Bedside Glucose 168 226 H 116 White Blood Count 6.8 Red Blood Count 3.58 L Hemoglobin 10.6 L Hematocrit 31.6 L Mean Corpuscular Volume 88.3 Mean Corpuscular Hemoglobin 29.6 Mean Corpuscular Hemoglobin Concent 33.5 Red Cell Distribution Width 13.4 Platelet Count 305 Mean Platelet Volume 10.4 Neutrophils % 58.8 Lymphocytes % 26.0 Monocytes % 10.4 Eosinophils % 3.8 Basophils % 0.7 Nucleated Red Blood Cells % 0.0 Neutrophils # 4.0 Lymphocytes # 1.8 Monocytes # 0.7 Eosinophils # 0.3 Basophils # 0.1 Nucleated Red Blood Cells # 0.0 Sodium Level 140 Potassium Level 4.0 Chloride Level 108 Carbon Dioxide Level 25 Anion Gap 11 Blood Urea Nitrogen 35 H Creatinine 3.34 H Glucose Level 133 Calcium Level 8.5 Magnesium Level 1.3 L Test 01/11/17 08:26 01/11/17 11:47 Bedside Glucose 136 181 Medications Medications Current Medications Clopidogrel Bisulfate (plaVIX) 75 mg DAILY PO Last administered on 01/11/17 08 :28; Admin Dose 75 MG; Start 01/10/17 at 09:00 Levetiracetam (Keppra) 500 mg BID PO Last administered on 01/11/17 08:30; Admin Dose 500 MG; Start 01/09/17 at 21:00 Metoprolol Succinate (Toprol Xl) 100 mg DAILY PO Last administered on 08:35; Admin Dose 100 MG; Start 01/10/17 at 09:00 Pantoprazole (Protonix Tab) 40 mg DAILY PO Last administered on 01/11/17 08:34 ; Admin Dose 40 MG; Start 01/10/17 at 09:00 Tamsulosin HCl (Flomax) 0.4 mg DAILY PO Last administered on 01/11/17 08:28; Admin Dose 0.4 MG; Start 01/10/17 at 09:00 Ondansetron HCl (Zofran Inj) 4 mg Q6H PRN IV NAUSEA AND/OR VOMITING; Start at 13:30 Acetaminophen (Tylenol Tab) 650 mg Q6H PRN PO PAIN LEVEL 1-3 OR FEVER Last administered on 01/10/17 08:20; Admin Dose 650 MG; Start 01/09/17 at 13:30 Acetaminophen (Tylenol Supp) 650 mg Q6H PRN [place] PAIN LEVEL 1-3 OR FEVER; Start 01/09/17 at 13:30 Acetaminophen/ Hydrocodone Bitart ([place] (5/325)) 1 tab Q6H PRN PO MODERATE PAIN LEVEL 4-6 Last administered on 01/11/17 04:35; Admin Dose 1 TAB; Start at 13:30 Docusate Sodium (Colace) 100 mg Q12H PRN PO CONSTIPATION; Start 01/09/17 at 13 :30 Heparin Sodium (Porcine) (Heparin (5000 Units/0.5 ml)) 5,000 unit Q12 SC Last administered on 01/11/17 08:34; Admin Dose 5,000 UNIT; Start 01/09/17 at 21:00 Diagnostic Test (Pha) (Accu-Chek) 1 ea 02 XX Last administered on 01/11/17 02: 00; Admin Dose 1 EA; Start 01/10/17 at 02:00 Insulin Glargine 13 unit 13 unit DAILY@20 SC Last administered on 01/10/17 21: 45; Admin Dose 13 UNIT; Start 01/09/17 at 20:00 Ceftriaxone Sodium (Rocephin) 50 ml @ 100 mls/hr Q24H IVPB Last administered on 01/11/17 13:34; Admin Dose 100 MLS/HR; Start 01/09/17 at 14:15 Miscellaneous Information 1 ea NOTE XX ; Start 01/09/17 at 14:30 Glucose (Glutose) 15 gm Q15M PRN PO DECREASED GLUCOSE; Start 01/09/17 at 14:30 Glucose (Glutose) 22.5 gm Q15M PRN PO DECREASED GLUCOSE; Start 01/09/17 at 14: 30 Dextrose (D50w Syringe) 25 ml Q15M PRN IV DECREASED GLUCOSE; Start 01/09/17 at 14:30 Dextrose (D50w Syringe) 50 ml Q15M PRN IV DECREASED GLUCOSE; Start 01/09/17 at 14:30 Glucagon (Glucagen) 1 mg Q15M PRN IM DECREASED GLUCOSE; Start 01/09/17 at 14: 30 Glucose (Glutose) 15 gm Q15M PRN BUCCAL DECREASED GLUCOSE; Start 01/09/17 at 14:30 Hydralazine HCl (Apresoline) 10 mg Q6H PRN IV SBP>170 Last administered on 01/10 08:06; Admin Dose 10 MG; Start 01/09/17 at 14:30 Acetaminophen/ Hydrocodone Bitart ([place] (10/325)) 1 tab Q4H PRN PO SEVERE PAIN LEVEL 7-10 Last administered on 01/11/17 11:41; Admin Dose 1 TAB; Start 01/09/17 at 18:30 Nifedipine (Procardia Xl) 60 mg DAILY PO Last administered on 01/11/17 10:31; Admin Dose 60 MG; Start 01/10/17 at 09:00 Gabapentin 300 mg 300 mg TID PO Last administered on 01/11/17 13:34; Admin Dose 300 MG; Start 01/10/17 at 21:00 Magnesium Sulfate/ Dextrose (Magnesium Sulfate/D5W) 106 ml @ 35.333 mls/ hr ONCE ONCE IVPB Last administered on 01/11/17 14:28; Admin Dose 35.333 MLS/HR ; Start 01/11/17 at 14:00; Stop 01/11/17 at 16:59 [place] GONZALEZ MD Jan 11, 2017 16:34
[2017-01-11] MEDS: INSULIN GLARGINE [LANtus] 3 ML PEN SC SCH (20:28)
[2017-01-12] VITALS (9 sets, daily range): BP systolic 120–150; BP diastolic 56–93; PULSE 61–84; RESP 16–20
[2017-01-12] MEDS: ACCU-CHEK XX SCH (01:21)
[2017-01-12] MEDS: INSULIN ASPART [NOVOLOG] 3 ML PEN SC SCH ×4 (08:00→11:50)
[2017-01-12] MEDS: LEVETIRACETAM 500 MG TAB PO SCH (09:33)
[2017-01-12] MEDS: NIFEdipine (XL) 60 MG TAB PO SCH (09:33)
[2017-01-12] MEDS: METOPROLOL (XL) 100 MG TAB PO SCH (09:33)
[2017-01-12] MEDS: PANTOPRAZOLE (EC) 40 MG TAB PO SCH (09:33)
[2017-01-12] MEDS: CLOPIDOGREL 75 MG TAB PO SCH (09:33)
[2017-01-12] MEDS: GABAPENTIN 300 MG CAP PO SCH ×2 (09:34→13:13)
[2017-01-12] MEDS: TAMSULOSIN (SR) 0.4 MG CAP PO SCH (09:36)
[2017-01-12] MEDS: HEPARIN 5,000 UNIT/0.5 ML VIAL SC SCH (09:39)
--- NOTE | 2017-01-12 09:50 | PN ---
Date/Time of Note Date/Time of Note DATE: 01/12/17 TIME: 09:46 Assessment/Plan VTE Prophylaxis VTE Prophylaxis Intervention: contraindicated Lines/Catheters IV C[facility]ter Type [facility]from [facility] Urinary Cath still in place: No Assessment/Plan Problems: (1) Acute kidney injury superimposed on CKD Status: Chronic Comment: He has been followed by Dr. Yusuf in the hospital. He essentially is at a point where he can be discharged her and concerned that if we discharge him he may not connect the dots properly for the follow-up which will be critical. I am asking insurance case manager to again be involved (2) Diabetes mellitus type 2 in nonobese Status: Chronic Comment: Adequate control on current regimen (3) Essential hypertension Status: Chronic Comment: Adequate control (4) Hyperlipidemia associated with type 2 diabetes mellitus Status: Chronic Comment: Controlled with statin therapy Subjective 24 Hr Interval Summary Free Text/Dictation Patient reports that he feels about the same complaints of bilateral lower extremity pain Constitutional: no complaints ENT: no complaints Respiratory: no complaints Cardiovascular: no complaints Gastrointestinal: no complaints Exam/Review of Systems Vital Signs Vitals Vital Signs Date Time Temp Pulse Resp B/P Pulse Ox O2 Delivery O2 Flow Rate FiO2 01/12/17 08:12 84 01/12/17 07:51 98.0 16 150/93 96 01/09/17 20:31 Room Air Intake and Output 01/11/17 01/11/17 01/12/17 15:00 23:00 07:00 Intake Total 50 ml 1056 ml 200 ml Output Total 800 ml 500 ml Balance 50 ml 256 ml -300 ml Exam Constitutional: alert, oriented Neck: non-tender, supple Respiratory: clear to auscultation, normal air movement Cardiovascular: nl pulses, regular rate and rhythm Gastrointestinal: nl liver, spleen, non-tender, soft Results Result Diagram: 01/11/17 0541 01/11/17 0541 Results 24 hrs Laboratory Tests Test 01/11/17 11:47 01/11/17 17:44 01/11/17 20:26 01/12/17 08:06 Bedside Glucose 181 221 H 108 114 Medications Medications Current Medications Clopidogrel Bisulfate (plaVIX) 75 mg DAILY PO Last administered on 01/11/17t 08 :28; Admin Dose 75 MG; Start 01/10/17 at 09:00 Levetiracetam (Keppra) 500 mg BID PO Last administered on 01/11/17 20:24; Admin Dose 500 MG; Start 01/09/17 at 21:00 Metoprolol Succinate (Toprol Xl) 100 mg DAILY PO Last administered on 08:35; Admin Dose 100 MG; Start 01/10/17 at 09:00 Pantoprazole (Protonix Tab) 40 mg DAILY PO Last administered on 01/11/17 08:34 ; Admin Dose 40 MG; Start 01/10/17 at 09:00 Tamsulosin HCl (Flomax) 0.4 mg DAILY PO Last administered on 01/11/17 08:28; Admin Dose 0.4 MG; Start 01/10/17 at 09:00 Ondansetron HCl (Zofran Inj) 4 mg Q6H PRN IV NAUSEA AND/OR VOMITING; Start at 13:30 Acetaminophen (Tylenol Tab) 650 mg Q6H PRN PO PAIN LEVEL 1-3 OR FEVER Last administered on 01/10/17 08:20; Admin Dose 650 MG; Start 01/09/17 at 13:30 Acetaminophen (Tylenol Supp) 650 mg Q6H PRN [place] PAIN LEVEL 1-3 OR FEVER; Start 01/09/17 at 13:30 Acetaminophen/ Hydrocodone Bitart ([place] (5/325)) 1 tab Q6H PRN PO MODERATE PAIN LEVEL 4-6 Last administered on 01/11/17 04:35; Admin Dose 1 TAB; Start at 13:30 Docusate Sodium (Colace) 100 mg Q12H PRN PO CONSTIPATION; Start 01/09/17 at 13 :30 Heparin Sodium (Porcine) (Heparin (5000 Units/0.5 ml)) 5,000 unit Q12 SC Last administered on 01/11/17 20:25; Admin Dose 5,000 UNIT; Start 01/09/17 at 21:00 Diagnostic Test (Pha) (Accu-Chek) 1 ea 02 XX Last administered on 01/11/17 02: 00; Admin Dose 1 EA; Start 01/10/17 at 02:00 Insulin Glargine 13 unit 13 unit DAILY@20 SC Last administered on 01/11/17 20: 28; Admin Dose 13 UNIT; Start 01/09/17 at 20:00 Ceftriaxone Sodium (Rocephin) 50 ml @ 100 mls/hr Q24H IVPB Last administered on 01/11/17 13:34; Admin Dose 100 MLS/HR; Start 01/09/17 at 14:15 Miscellaneous Information 1 ea NOTE XX ; Start 01/09/17 at 14:30 Glucose (Glutose) 15 gm Q15M PRN PO DECREASED GLUCOSE; Start 01/09/17 at 14:30 Glucose (Glutose) 22.5 gm Q15M PRN PO DECREASED GLUCOSE; Start 01/09/17 at 14: 30 Dextrose (D50w Syringe) 25 ml Q15M PRN IV DECREASED GLUCOSE; Start 01/09/17 at 14:30 Dextrose (D50w Syringe) 50 ml Q15M PRN IV DECREASED GLUCOSE; Start 01/09/17 at 14:30 Glucagon (Glucagen) 1 mg Q15M PRN IM DECREASED GLUCOSE; Start 01/09/17 at 14: 30 Glucose (Glutose) 15 gm Q15M PRN BUCCAL DECREASED GLUCOSE; Start 01/09/17 at 14:30 Hydralazine HCl (Apresoline) 10 mg Q6H PRN IV SBP>170 Last administered on 01/10 08:06; Admin Dose 10 MG; Start 01/09/17 at 14:30 Acetaminophen/ Hydrocodone Bitart ([place] (10/325)) 1 tab Q4H PRN PO SEVERE PAIN LEVEL 7-10 Last administered on 01/11/17 11:41; Admin Dose 1 TAB; Start 01/09/17 at 18:30 Nifedipine (Procardia Xl) 60 mg DAILY PO Last administered on 01/11/17 10:31; Admin Dose 60 MG; Start 01/10/17 at 09:00 Gabapentin (Neurontin) 300 mg TID PO Last administered on 01/11/17 20:24; Admin Dose 300 MG; Start 01/10/17 at 21:00 SHARRI FERNANDEZ MD Jan 12, 2017 09:50
[2017-01-12] MEDS: HYDROCODONE/APAP (5/325) TAB PO PRN ×2 (11:07→17:00)
--- NOTE | 2017-01-12 11:14 | PDOCDIS ---
Discharge Instructions DIAGNOSIS Discharge Diagnosis Acute on chronic kidney disease; diabetes mellitus type 2; hypertension; osteoarthritis; hyperlipidemia; meningioma; history of renal stones; CONDITION Patient Condition: Fair HOME CARE INSTRUCTIONS: Diet Instructions: 2gm Na ACTIVITY: Activity Restrictions: Slowly Increase Activity Do not operate Machinery Do not operate Power Tool FOLLOW UP/APPOINTMENTS Follow-up Plan Primary care physician Dr. Daryl Yusuf in 1 week nephrology in 2 weeks SHARRI Brody MD Jan 12, 2017 11:14
--- NOTE | 2017-01-12 11:14 | DS ---
Date/Time of Note Date/Time of Note DATE: 01/12/17 TIME: 11:10 Discharge Summary Admission/Discharge Info Admit Date/Time Jan 09, 2017 at 12:48 Discharge Date/Time January 12, 2017 Discharge Diagnosis Acute on chronic kidney disease; diabetes mellitus type 2; hypertension; osteoarthritis; hyperlipidemia; meningioma; history of renal stones; Patient Condition: Fair Consults Nephrology Dr. Bayron Yusuf Procedures Renal ultrasound carotid vascular study MRI scan brain MRI scan abdomen MRI scan pelvis abdominal CT scan brain CT scan venous Doppler Hx of Present Illness Hx of Present Illness This is a 79-year-old male who is also a poor historian, with a past medical history hypertension, dyslipidemia, type 2 diabetes, diabetic neuropathy , coronary artery disease, COPD, meningioma with right frontoparietal craniotomy , TIAs, BPH, right ICA stenosis, who presented to the emergency room for evaluation of generalized weakness, headache, lower extremity pain and numbness. Patient denied any chest pain, palpitation, shortness of breath, nausea, vomiting, abdominal pain, constipation, diarrhea, loss of consciousness , dizziness, bleeding episodes or other constitutional symptoms. Patient also denied any fever or chills. Initial workup showed BUN 33, creatinine 3.21, hemoglobin 11 and hematocrit 32.1. Vital signs with blood pressure 213/98. Chest x-ray without acute cardiopulmonary disease. A CT abdomen and pelvis was also done without any acute intra-abdominal pathology seen. A CT brain showed prior right parietal craniotomy with underlying frontoparietal convexity meningioma with persistent surrounding encephalomalacia/edema. A follow-up MRI was recommended. Patient was admitted for further evaluation. Hospital Course 81-year-old gentleman who is admitted with essentially weakness failure to thrive and new finding of renal insufficiency. Please note he had had some chronic kidney disease based on his labs a few years ago at this institution. He is progressed on to having fairly significant advanced renal dysfunction chronic kidney disease stage V. He was stabilized for blood pressure and sugars and had medications were renally adjusted for dosing. He is improved and is now stable for discharge but will absolutely need to have follow-up appointment with nephrology as an outpatient. Case management has had discussions with the patient's daughter who will make sure that he gets to his appointments. Home Meds Reported Medications Metoprolol Succinate* (Toprol XL*) 100 Mg Tab.sr.24h, 100 MG PO DAILY, #30 TAB 04/17/16 Insulin Glargine* (Lantus*) 100 Unit/Ml Soln, 52 UNIT SC QHS, VIAL 04/19/15 Pantoprazole* (Pantoprazole*) 40 Mg Tablet.dr, 40 MG PO DAILY, TAB 04/19/15 Tamsulosin Hcl* (Tamsulosin Hcl*) 0.4 Mg Cap.er.24h, 0.4 MG PO DAILY, CAP 08/17/14 Clopidogrel Bisulfate (Clopidogrel) 75 Mg Tablet, 75 MG PO DAILY, TAB 08/17/14 Albuterol Sulfate* (Ventolin HFA*) 18 Gm Hfa.aer.ad, 1 PUFF IH Q4H Y for WHEEZING AND RESP DISTRESS, EA 01/29/14 Levetiracetam* (Keppra*) 500 Mg Tablet, 500 MG PO BID, TAB 01/29/14 Insulin Aspart (Novolog) 100 U/Ml Cartridge, 15 UNITS SC TID, EA 01/29/14 Follow-up Plan Primary care physician Dr. Daryl Yusuf in 1 week nephrology in [address] Bayron Yusuf Primary Care Provider Francisco Yusuf MD Time spent on discharge: > 30 minutes Pending Labs Laboratory Tests Test 01/11/17 11:47 01/11/17 17:44 01/11/17 20:26 01/12/17 08:06 Bedside Glucose 181mg/dL (70-220) 221mg/dL (70-220) 108mg/dL (70-220) 114mg/dL (70-220) SHARRI FERNANDEZ MD Jan 12, 2017 11:14
[2017-01-12] MEDS ORDERED: NIFE60TA7 PO (11:16)
[2017-01-12] MEDS ORDERED: GABA300C16 PO (11:16)
--- NOTE | 2017-01-12 12:59 | CONS ---
Date/Time of Note Date/Time of Note DATE: 01/12/17 TIME: 12:55 Assessment/Plan Assessment/Plan Chief Complaint/Hosp Course 81-year-old male with a past medical history of hypertension, dyslipidemia, type 2 diabetes, diabetic neuropathy, coronary artery disease, COPD, meningioma with right frontoparietal craniotomy, TIAs, BPH, right ICA stenosis, who presented to the emergency room for evaluation of generalized weakness, headache , B/L lower extremity pain and numbness.pt is admitted to telemetry floor and plan is to have MRI brain to rule out Acute CVA- Renal has been consulted for elevated Cr of 3.21. pt is also noted to have right renal cyst 1.3cm and left mid to lower left kidney echogenic lesion measuring 1.8 x 1.4 cm Problems: Additional Assessment/Plan 1. Non Oliguric Acute Kind[place] injury on CKD( unknown stage) due to prerenal azotemia + ATN 2. H/o Possible CKD 3. R/o Acute CVA vs TIA 4. Coronary artery disease 5. DM II 6. HTN 7. HL 8. Right kidney cyst 1.3 cm in size and Hypoechoic mass in the mid to lower left kidney measuring 1.8 x 1.4 cm which may be cystic or solid. 9. Hyperuricemia without gout Plan : Cr remains elevated, BP well controlled with procardia XL , [place]( [phone]) Renal US c/w Medical sylvia rudd but it showed Right kidney cyst 1.3 cm in size and Hypoechoic mass in the mid to lower left kidney measuring 1.8 x 1.4 cm which may be cystic or solid. -MRI abdomen + pelvis negative for acute mass continue allopurinol 100mg po daily for hyperuricemia will follow up Consultation Date/Type/Reason Admit Date/Time Jan 09, 2017 at 12:48 Initial Consult Date 01/09/17 Type of Consultation: NEPHROLOGY Referring Provider: NESTOR TYALOR 24 HR Interval Summary Free Text/Dictation BUN/Cr remains elevated, doing better Exam/Review of Systems Vital Signs Vitals Vital Signs Date Time Temp Pulse Resp B/P Pulse Ox O2 Delivery O2 Flow Rate FiO2 01/12/17 12:23 81 01/12/17 12:11 97.8 16 144/80 100 01/09/17 20:31 Room Air Intake and Output 01/11/17 01/11/17 01/12/17 15:00 23:00 07:00 Intake Total 50 ml 1056 ml 200 ml Output Total 800 ml 500 ml Balance 50 ml 256 ml -300 ml Exam Constitutional: alert Respiratory: clear to auscultation, diminished breath sounds, normal air movement Cardiovascular: nl pulses, regular rate and rhythm Gastrointestinal: non-tender, soft Musculoskeletal: nl extremities to inspection, nl gait and stance Extremities: normal pulses Neurological: LAYUP WORKER II-XII intact, nl mental status, nl speech, nl strength, other (LE weakness and numbness ) Results Result Diagram: 01/11/17 0541 01/11/17 0541 Results 24 hrs Laboratory Tests Test 01/11/17 17:44 01/11/17 20:26 01/12/17 08:06 01/12/17 11:46 Bedside Glucose 221 H 108 114 157 Medications Medications Current Medications Clopidogrel Bisulfate (plaVIX) 75 mg DAILY PO Last administered on 01/12/17 09 :33; Admin Dose 75 MG; Start 01/10/17 at 09:00 Levetiracetam (Keppra) 500 mg BID PO Last administered on 01/12/17 09:33; Admin Dose 500 MG; Start 01/09/17 at 21:00 Metoprolol Succinate (Toprol Xl) 100 mg DAILY PO Last administered on 09:33; Admin Dose 100 MG; Start 01/10/17 at 09:00 Pantoprazole (Protonix Tab) 40 mg DAILY PO Last administered on 01/12/17 09:33 ; Admin Dose 40 MG; Start 01/10/17 at 09:00 Tamsulosin HCl (Flomax) 0.4 mg DAILY PO Last administered on 01/12/17 09:36; Admin Dose 0.4 MG; Start 01/10/17 at 09:00 Ondansetron HCl (Zofran Inj) 4 mg Q6H PRN IV NAUSEA AND/OR VOMITING; Start at 13:30 Acetaminophen (Tylenol Tab) 650 mg Q6H PRN PO PAIN LEVEL 1-3 OR FEVER Last administered on 01/10/17 08:20; Admin Dose 650 MG; Start 01/09/17 at 13:30 Acetaminophen (Tylenol Supp) 650 mg Q6H PRN [place] PAIN LEVEL 1-3 OR FEVER; Start 01/09/17 at 13:30 Acetaminophen/ Hydrocodone Bitart ([place] (5/325)) 1 tab Q6H PRN PO MODERATE PAIN LEVEL 4-6 Last administered on 01/12/17 11:07; Admin Dose 1 TAB; Start at 13:30 Docusate Sodium (Colace) 100 mg Q12H PRN PO CONSTIPATION; Start 01/09/17 at 13 :30 Heparin Sodium (Porcine) (Heparin (5000 Units/0.5 ml)) 5,000 unit Q12 SC Last administered on 01/12/17 09:39; Admin Dose 5,000 UNIT; Start 01/09/17 at 21:00 Diagnostic Test (Pha) (Accu-Chek) 1 ea 02 XX Last administered on 01/11/17 02: 00; Admin Dose 1 EA; Start 01/10/17 at 02:00 Insulin Glargine 13 unit 13 unit DAILY@20 SC Last administered on 01/11/17 20: 28; Admin Dose 13 UNIT; Start 01/09/17 at 20:00 Ceftriaxone Sodium (Rocephin) 50 ml @ 100 mls/hr Q24H IVPB Last administered on 01/11/17 13:34; Admin Dose 100 MLS/HR; Start 01/09/17 at 14:15 Miscellaneous Information 1 ea NOTE XX ; Start 01/09/17 at 14:30 Glucose (Glutose) 15 gm Q15M PRN PO DECREASED GLUCOSE; Start 01/09/17 at 14:30 Glucose (Glutose) 22.5 gm Q15M PRN PO DECREASED GLUCOSE; Start 01/09/17 at 14: 30 Dextrose (D50w Syringe) 25 ml Q15M PRN IV DECREASED GLUCOSE; Start 01/09/17 at 14:30 Dextrose (D50w Syringe) 50 ml Q15M PRN IV DECREASED GLUCOSE; Start 01/09/17 at 14:30 Glucagon (Glucagen) 1 mg Q15M PRN IM DECREASED GLUCOSE; Start 01/09/17 at 14: 30 Glucose (Glutose) 15 gm Q15M PRN BUCCAL DECREASED GLUCOSE; Start 01/09/17 at 14:30 Hydralazine HCl (Apresoline) 10 mg Q6H PRN IV SBP>170 Last administered on 01/10 08:06; Admin Dose 10 MG; Start 01/09/17 at 14:30 Acetaminophen/ Hydrocodone Bitart ([place] ()) 1 tab Q4H PRN PO SEVERE PAIN LEVEL 7-10 Last administered on 01/11/17 11:41; Admin Dose 1 TAB; Start 01/09/17 at 18:30 Nifedipine (Procardia Xl) 60 mg DAILY PO Last administered on 01/12/17 09:33; Admin Dose 60 MG; Start 01/10/17 at 09:00 Gabapentin (Neurontin) 300 mg TID PO Last administered on 01/12/17 09:34; Admin Dose 300 MG; Start 01/10/17 at 21:00 [place] GONZALEZ MD Jan 12, 2017 12:59
[2017-01-12] MEDS: CEFTRIAXONE 1 GM/50 ML (PMX) 50 ML IVPB SCH (14:28)
[2017-01-12] MEDS: HYDROCODONE/APAP (10/325) TAB PO PRN (14:52)
== END 2017-01-12 17:36 | disposition home or self-care (01) | DRG 683 ==
LOC: E/R 09:09 → MS3 12:48 → MS4 22:26
PROVIDERS: ADMIT Family Medicine; ATTEND Family Medicine
PROC: 3E0234Z Introduction of Serum, Toxoid and Vaccine into Muscle, Percutaneous Approach (ICD-10-PCS; principal; 2017-01-11)
DX: N17.0 Acute kidney failure with tubular necrosis (principal); I12.0 Hypertensive chronic kidney disease with stage 5 chronic kidney disease or end stage renal disease; E11.22 Type 2 diabetes mellitus with diabetic chronic kidney disease; E11.40 Type 2 diabetes mellitus with diabetic neuropathy, unspecified; E11.69 Type 2 diabetes mellitus with other specified complication; J44.9 Chronic obstructive pulmonary disease, unspecified; I65.21 Occlusion and stenosis of right carotid artery; D64.9 Anemia, unspecified; E78.2 Mixed hyperlipidemia; N40.0 Benign prostatic hyperplasia without lower urinary tract symptoms; I16.0 Hypertensive urgency; E79.0 Hyperuricemia without signs of inflammatory arthritis and tophaceous disease; M19.90 Unspecified osteoarthritis, unspecified site; N18.5 Chronic kidney disease, stage 5; Z86.011 Personal history of benign neoplasm of the brain; Z86.73 Personal history of transient ischemic attack (TIA), and cerebral infarction without residual deficits; Z79.4 Long term (current) use of insulin; Z23 Encounter for immunization
CPT/HCPCS: 36415; 70450; 70551; 71010; 72195; 74176; 74181; 76775; 80048; 80053; 80061; 81001; 81003; 82550; 82570; 82962; 83036; 83690; 83735; 84100; 84155; 84300; 84443; 84484; 84560; 85025; 87040; 87086; 89190; 90686; 93005; 93880; 93970; 96374; 96375; J0360; J0696; J1644; J1815; J1885; J1940; J2270; J2405; J3475; J7030; J7040

== ENCOUNTER → 2017-01-23 | Emergency (ER) | payer MEDICARE, OTHER ==
[~2017-01-23] VITALS: Ht 167.6 cm; Wt 87.7 kg
[~2017-01-23] MED LIST changes: +BUDE6HFA INHALATION; +CLON-379 PO; +ERGO500037 PO; +GABA300C16 PO; +HYDR-906 PO; +METO-429 PO; +NIFE60TA7 PO; +OXYC-279 PO; +OXYCODONE/ACETAMINOPHEN (5/325) TAB PO ONE; +TRAM-40 PO
[2017-01-23 19:12] VITALS: Ht 167.6 cm; Wt 87.7 kg
--- NOTE | 2017-01-23 20:12 | ERD ---
ER Documentation Chief Complaint Chief Complaint sent by dr. lanier for abnormal labs- hyperkalemia HPI 81-year-old man referred here for elevated potassium on recent blood draw. Patient does have a history of kidney injury but does not undergo hemodialysis. He has had no difficulty or issues urinating, no fevers or chills, no weakness or loss of consciousness. Patient complains of full body aches including low back pain, denies chest pain or shortness of breath. ROS All systems reviewed and are negative except as per history of present illness. Medications Home Meds Active Scripts Oxycodone HCl/Acetaminophen (Percocet 5-325 mg Tablet) 1 Each Tablet, 1 EACH PO TID, #12 TAB Prov:ALEXANDRO VASQUEZ MD 01/23/17 Gabapentin* (Gabapentin*) 300 Mg Capsule, 300 MG PO TID for 30 Days, #90 CAP Prov:SHARRI FERNANDEZ MD 01/12/17 Nifedipine (Afeditab CR) 60 Mg Tablet.sa, 60 MG PO DAILY for 30 Days, #30 TAB 1 Refill Prov:SHARRI FERNANDEZ MD 01/12/17 Reported Medications Budesonide-Formoterol Fumarate* (Symbicort*) 160-4.5 Hfa.aer.ad, 1 PUFF INHALATION DAILY, #1 EACH 01/23/17 Hydrocodone/Acetaminophen ([place] 5-325 Tablet) 1 Each Tablet, 1 EACH PO DAILY Y for NEEDED, TAB 01/23/17 Tramadol Hcl* (Ultram*) 50 Mg Tablet, 50 MG PO Q8, TAB 01/23/17 Ergocalciferol (Vitamin D2) (VITAMIN D2) 50,000 Unit Capsule, 33905 UNIT PO Q7D , CAP 01/23/17 Clonidine Hcl* (Clonidine Hcl*) 0.1 Mg Tab, 0.1 MG PO TID Y for HTN, TAB 01/23/17 Metoprolol Tartrate* (Lopressor*) 50 Mg Tab, 50 MG PO BID, #60 TAB 01/23/17 Insulin Glargine* (Lantus*) 100 Unit/Ml Soln, 45 UNIT SC QHS, VIAL 04/19/15 Pantoprazole* (Pantoprazole*) 40 Mg Tablet.dr, 40 MG PO DAILY, TAB 04/19/15 Tamsulosin Hcl* (Tamsulosin Hcl*) 0.4 Mg Cap.er.24h, 0.4 MG PO DAILY, CAP 08/17/14 Clopidogrel Bisulfate (Clopidogrel) 75 Mg Tablet, 75 MG PO DAILY, TAB 08/17/14 Levetiracetam* (Keppra*) 500 Mg Tablet, 500 MG PO BID, TAB 01/29/14 Insulin Aspart (Novolog) 100 U/Ml Cartridge, UNITS SC SLIDING SCALES, EA 01/29/14 Discontinued Reported Medications Metoprolol Succinate* (Toprol XL*) 100 Mg Tab.sr.24h, 100 MG PO DAILY, #30 TAB 04/17/16 Albuterol Sulfate* (Ventolin HFA*) 18 Gm Hfa.aer.ad, 1 PUFF IH Q4H Y for WHEEZING AND RESP DISTRESS, EA 01/29/14 Allergies Allergies: Coded Allergies: No Known Drug Allergies (Verified Allergy, Mild, 01/23/17) PMhx/Soc Acute Kind[place] injury on CKD, CAD, TIA, diabetes mellitus, hypertension, hyperlipidemia, chronic kidney cysts, chronic back and abdominal pain with multiple recent imaging studies including MRI and CT abdomen pelvis which have been unremarkable, brain mass status post surgical resection, seizures History of Surgery: Yes Anesthesia Reaction: No Hx Neurological Disorder: Yes (sz ) Hx Respiratory Disorders: Yes (copd asthma bph) Hx Cardiac Disorders: Yes (htn) Hx Psychiatric Problems: No Hx Miscellaneous Medical Probl: No Hx Alcohol Use: No Hx Substance Use: No Hx Tobacco Use: No FmHx Family History: No diabetes Physical Exam Vitals Vital Signs Date Time Temp Pulse Resp B/P Pulse Ox O2 Delivery O2 Flow Rate FiO2 01/23/17 19:12 98.3 69 20 128/68 97 Physical Exam GENERAL: Well-developed, well-nourished, well-hydrated, in no apparent distress , looks nontoxic in appearance HEENT: Moist mucous membranes, pink conjunctiva, no cervical spine tenderness or step-off deformities, no goiter, no jaundice or icterus, extraocular movements intact without pain. No submandibular induration, and no pharyngeal erythema NEURO: Alert and oriented 3, cranial nerves II through XII intact bilaterally, pupils equal round reactive to light, no focal deficits or facial asymmetry, sensation intact distally Strength 5/5 in upper and lower extremities bilaterally CARDIAC: Regular rate and rhythm, no murmurs rubs or gallops LUNGS: Clear bilaterally no wheezing crackles or stridor ABDOMEN: Soft nontender, no guarding, no rigidity, no rebound, no psoas sign no obturator sign. Normoactive bowel sounds SKIN: Warm and dry to touch, no abrasions, contusions, or hematomas, no lacerations, no ecchymosis, no target lesions, and without ulcers EXTREMITIES: No clubbing cyanosis or edema, calves are bilaterally symmetrical, no Homans sign, no popliteal cord sign. Distal pulses equal and bilateral PSYCH: Normal affect without agitation or irritability Result Diagram: 01/23/17202901/23/172029 Results 24 hrs Laboratory Tests Test 01/23/17 20:30 White Blood Count 11.110^3/ul Red Blood Count 3.1210^6/ul Hemoglobin 9.5g/dl Hematocrit 28.2% Mean Corpuscular Volume 90.4fl Mean Corpuscular Hemoglobin 30.4pg Mean Corpuscular Hemoglobin Concent 33.7g/dl Red Cell Distribution Width 13.5% Platelet Count 87384^3/UL Mean Platelet Volume 10.0fl Neutrophils % 65.3% Lymphocytes % 23.5% Monocytes % 8.2% Eosinophils % 1.8% Basophils % 0.7% Nucleated Red Blood Cells % 0.0/100WBC Neutrophils # 7.210^3/ul Lymphocytes # 2.610^3/ul Monocytes # 0.910^3/ul Eosinophils # 0.210^3/ul Basophils # 0.110^3/ul Nucleated Red Blood Cells # 0.010^3/ul Sodium Level 135mmol/L Potassium Level 5.0mmol/L Chloride Level 108mmol/L Carbon Dioxide Level 19mmol/L Anion Gap 13 Blood Urea Nitrogen 62mg/dl Creatinine 3.58mg/dl Glucose Level 84mg/dl Calcium Level 8.2mg/dl Total Bilirubin 0.0mg/dl Direct Bilirubin 0.00mg/dl Indirect Bilirubin 0.0mg/dl Aspartate Amino Transf (AST/SGOT) 31IU/L Alanine Aminotransferase (ALT/SGPT) 41IU/L Alkaline Phosphatase 93IU/L Troponin I 0.019ng/ml Total Protein 5.5g/dl Albumin 2.6g/dl Globulin 2.90g/dl Albumin/Globulin Ratio 0.89 Lipase 317U/L Current Medications Medications (Trade) Dose Ordered Sig/Joaquin Route PRN Reason Start Time Stop Time Status Last Admin Dose Admin Oxycodone/ Acetaminophen (Percocet (5/ 325)) 1 tab ONCE ONCE PO 01/23/17 21:30 01/23/17 21:31 01/23/17 21:27 Procedures/MDM IV line was established 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 Patient was afebrile EKG performed, read by me: 68 bpm, normal sinus rhythm, normal axis, no acute ST segment changes, narrow QRS complex, with good R-wave progression in precordial leads. One AP view of the chest performed, read by me reveals no acute infiltrates, normal mediastinum, sharp costophrenic and cardiac borders, no air under the diaphragm. Otherwise unremarkable chest x-ray. CBC was consistent with mild anemia, electrolytes revealed kidney injury with a BUN/creatinine of 62/3.6, liver function tests are normal, troponin was negative , potassium normal at 5. I administered Percocet 1 tablet p.o. for complaints of back pain and abdominal pain. Potassium that was called into the patient was most likely a lab error, patient' s vital signs are normal and pain is been controlled he will be discharged to follow-up with PMD. Differential diagnoses considered, included but not limited to acute coronary syndrome, pulmonary embolism, aortic dissection, abdominal aortic aneurysm, sepsis, stroke, meningitis, encephalitis, pneumonia, appendicitis, cholecystitis , bowel obstruction, pyelonephritis, nephrolithiasis, cystitis, as well as metabolic, hematologic, and electrolyte abnormalities. As well as abscess, cellulitis, fractures, and dislocations. Patient feels much better at this time, and vital signs are normal, symptoms have improved. I did give strict instructions to return to the ED if symptoms continue or worsen, patient will otherwise follow-up with primary care physician. Patient understood instructions and agreed to plan. Disclaimer: Inadvertent spelling and grammatical errors are likely due to EHR/ dictation software use and do not reflect on the overall quality of patient care. Also, please note that the electronic time recorded on this note does not necessarily reflect the actual time of the patient encounter. Departure Diagnosis: Primary Impression: Acute kidney injury superimposed on CKD Additional Impressions: Encounter for laboratory test Chronic pain syndrome Condition: ALEXANDRO Aguilar MD Jan 23, 2017 20:12
[2017-01-23 20:42] LABS: BASOPHIL # 0.1 10^3/ul (0.0-0.1); BASOPHILS % 0.7 % (0.0-2.0); EOSINOPHILS # 0.2 10^3/ul (0.0-0.5); EOSINOPHILS % 1.8 % (0.0-7.0); HEMATOCRIT 28.2 % (42.0-52.0); HEMOGLOBIN 9.5 g/dl (14.0-18.0); LYMPHOCYTES # 2.6 10^3/ul (0.8-2.9); LYMPHOCYTES % 23.5 % (15.0-51.0); MEAN CORPUSCULAR HEMOGLOBIN 30.4 pg (29.0-33.0); MEAN CORPUSCULAR HGB CONC 33.7 g/dl (32.0-37.0); MEAN CORPUSCULAR VOLUME 90.4 fl (82.0-101.0); MONOCYTE # 0.9 10^3/ul (0.3-0.9); MONOCYTES % 8.2 % (0.0-11.0); NEUTROPHIL # 7.2 10^3/ul (1.6-7.5); NEUTROPHILS % 65.3 % (39.0-77.0); PLATELET COUNT 350 10^3/UL (140-415); RED BLOOD COUNT 3.12 10^6/ul (4.70-6.10); RED CELL DISTRIBUTION WIDTH 13.5 % (11.5-14.5); WHITE BLOOD COUNT 11.1 10^3/ul (4.8-10.8)
--- NOTE | 2017-01-23 20:52 | RADRPT ---
PROCEDURE: Chest x-ray CLINICAL INDICATION: Abdominal pain TECHNIQUE: Chest single view COMPARISON: 01/09/2017 FINDINGS: There is stable moderate cardiomegaly and mild atherosclerotic aortic calcification. The pulmonary vessels are normal in caliber. The lungs are clear. The costophrenic angles are sharp. The visual ized bony thorax is unremarkable. IMPRESSION: No acute cardiopulmonary disease. Stable cardiomegaly and an sclerotic aortic calcification RPTAT: HH .Johann Forrester MD, Date Time Electronically viewed and signed by .Johann Forrester MD, on 01/23/2017 20:51 .W/
[2017-01-23 21:04] LABS: ALBUMIN 2.6 g/dl (3.3-4.9); ALBUMIN/GLOBULIN RATIO 0.89; CALCIUM 8.2 mg/dl (8.4-10.2); CREATININE 3.58 mg/dl (0.61-1.24); TOTAL PROTEIN 5.5 g/dl (6.1-8.1)
[2017-01-23 21:14] LABS: TROPONIN-I 0.019 ng/ml (0.00-0.12)
[2017-01-23 21:28] VITALS: BP 144/73; PULSE 80; RESP 18
== END | disposition home or self-care (01) ==
LOC: E/R 18:57
DX: N17.9 Acute kidney failure, unspecified (principal); N18.9 Chronic kidney disease, unspecified; G89.4 Chronic pain syndrome; J44.9 Chronic obstructive pulmonary disease, unspecified; I12.9 Hypertensive chronic kidney disease with stage 1 through stage 4 chronic kidney disease, or unspecified chronic kidney disease; E11.22 Type 2 diabetes mellitus with diabetic chronic kidney disease; Z79.4 Long term (current) use of insulin
CPT/HCPCS: 36415; 71010; 80053; 83690; 84484; 85025; 93005

== ENCOUNTER 2017-02-12 15:00 | Emergency (ER) | END 2017-02-12 22:14 | disposition home or self-care (01) ==

== ENCOUNTER 2017-02-12 16:28 | Emergency (ER) | END 2017-02-12 18:30 | disposition left against medical advice (07) ==

== ENCOUNTER → 2017-03-20 | Outpatient (CLI) | END | disposition home or self-care (01) ==

== ENCOUNTER 2017-04-04 09:32 | Emergency (ER) | END 2017-04-04 13:30 | disposition home or self-care (01) ==

== ENCOUNTER 2017-04-07 13:27 | Inpatient (IN) | END 2017-04-16 19:40 | disposition home health service (06) | DRG 871 ==

== ENCOUNTER 2017-12-06 09:04 | Inpatient (IN) | END 2017-12-22 18:05 | disposition home health service (06) | DRG 871 ==

== ENCOUNTER 2018-02-27 19:41 | Inpatient (IN) | payer MEDICARE, OTHER ==
[~2018-02-27] VITALS: Ht 162.6 cm; Wt 65.1 kg
[~2018-02-27 19:41] MED LIST changes: +ACYC400T2 PO; -ALBU18HF IH; +ALBU8.5H8 INH; +AMIO200T4 PO; +ASA400 PO; +CARAS PO; -CLON-379 PO; -CLOP75TA27 PO; +ERGO500013 PO; -ERGO500037 PO; -GABA300C16 PO; +HYDR-3671 PO; -HYDR-906 PO; -INSU100C3 SC; -LANT3I SC; -METO-336 PO; +METR500T PO; +MONT10TA21 PO; -NIFE60TA7 PO; +NIFE90TA PO; -OXYC-279 PO; -OXYCODONE/ACETAMINOPHEN (5/325) TAB PO ONE; -TRAM-40 PO
--- NOTE | 2018-02-27 23:01 | ERD ---
ER Documentation Chief Complaint Chief Complaint AP WITH DIARRHEA PAIN X 3 DAYS HPI The patient is a 82-year-old male, presenting to the ER because abdominal pain diarrhea for 4 days, denies hematochezia, denies any recent traveling. He does not have any fever, chills, neck pain, chest pain, dyspnea, and the abdominal pain is diffuse, no aggravating/relieving factor, denies dysuria. He does not smoke, drink Past medical history: Hypertension, BPH, epilepsy, COPD, hypertension, gastritis, esophagitis, history of atrial flutter, chronic kidney disease on hemodialysis Friday and Friday, dementia, history of right pleural effusion Past surgical history: Craniotomy for meningioma, recent colonoscopy and EGD on December 15, 2017 ROS All systems reviewed and are negative except as per history of present illness. Medications Home Meds Active Scripts Sucralfate* (Carafate*) 1 Gm/10 Ml Susp, 1 GM PO Q6 for 14 Days, #400 ML Prov:ALEXANDRO ANDERS 12/20/17 Mesalamine (Delzicol) 400 Mg Cap.drtab., 800 MG PO TID for 30 Days, #90 Prov:ALEAXNDRO ANDERS 12/20/17 Nifedipine (Procardia Xl) 90 Mg Tab.er.24, 90 MG PO DAILY for 30 Days, #30 TAB Prov:ALEXANDRO ANDERS 12/20/17 Hydralazine Hcl* (Hydralazine Hcl*) 25 Mg Tab, 25 MG PO Q6 for 30 Days, #120 TAB Prov:ALEXANDRO ANDERS 12/20/17 Amiodarone Hcl* (Amiodarone Hcl*) 200 Mg Tablet, 200 MG PO DAILY for 30 Days, #30 TAB Prov:ALEXANDRO ANDERS 12/20/17 Metronidazole* (Flagyl*) 500 Mg Tablet, 500 MG PO Q8 for 14 Days, #42 TAB Prov:ALEXANDRO ANDERS 12/20/17 Acyclovir* (Acyclovir*) 400 Mg Tablet, 400 MG PO TID for 14 Days, #42 TAB Prov:ALEXANDRO ANDERS 12/20/17 Pantoprazole* (Pantoprazole*) 40 Mg Tablet.dr, 40 MG PO DAILY for 30 Days, #60 TAB 1 Refill Prov:ALEXANDRO ANDERS 12/20/17 Montelukast Sodium* (Singulair*) 10 Mg Tablet, 10 MG PO QHS, #30 TAB Prov:SAMAYOA,PB [employer]. [employer] 04/16/17 Albuterol Sulfate* (Proair HFA*) 8.5 Gm Hfa.aer.ad, 2 PUFF INH Q4H PRN for WHEEZING AND SOB, #1 INHALER Prov:SAMAYOA,PB [employer] 04/16/17 Metoprolol Tartrate* (Lopressor*) 50 Mg Tab, 75 MG PO BID, #60 TAB Prov:SAMAYOA,PB [employer] 04/16/17 Reported Medications Budesonide-Formoterol Fumarate* (Symbicort*) 160-4.5 Hfa.aer.ad, 1 PUFF INHALATION DAILY, #1 EACH 01/23/17 Ergocalciferol (Vitamin D2) (VITAMIN D2) 50,000 Unit Capsule, 67451 UNIT PO Q7D, CAP 01/23/17 Tamsulosin Hcl* (Tamsulosin Hcl*) 0.4 Mg Cap.er.24h, 0.4 MG PO DAILY, CAP 08/17/14 Levetiracetam* (Keppra*) 500 Mg Tablet, 500 MG PO BID, TAB 01/29/14 Allergies Allergies: Coded Allergies: No Known Drug Allergies (Verified Allergy, Mild, 12/06/17) PMhx/Soc History of Surgery: Yes (Brain mass removal) Anesthesia Reaction: No Hx Neurological Disorder: No Hx Respiratory Disorders: Yes (COPD) Hx Cardiac Disorders: Yes (HTN) Hx Psychiatric Problems: No Hx Miscellaneous Medical Probl: Yes (See EMR for details. ) Hx Alcohol Use: No Hx Substance Use: No Hx Tobacco Use: Yes Physical Exam Vitals Vital Signs Date Temp Pulse Resp B/P (MAP) Pulse Ox O2 O2 Flow FiO2 Time Delivery Rate 02/27/18 60 15 84/47 (59) 94 Room Air 23:18 02/27/18 Nasal 2 23:00 Cannula 02/27/18 97.8 100 18 133/57 99 19:53 (82) Physical Exam Const: No acute distress. Head: Atraumatic. Eyes: Normal Conjunctiva. ENT: Normal External Ears, Nose and Mouth. Neck: Full range of motion. No meningismus. Resp: Clear to auscultation bilaterally. Cardio: Regular rate and rhythm. Abd: Soft, non distended, normal bowel sounds, diffuse moderate abdominal tenderness, no rigidity/rebound/CVA tenderness Skin: No petechiae or rashes. Back: No midline or flank tenderness. Ext: No cyanosis, or edema. Neur: Awake and alert. No focal deficit Psych: Normal Mood and Affect. Result Diagram: 02/27/18 2310 02/27/18 2310 Results 24 hrs Laboratory Tests Test 02/27/18 23:10 02/27/18 23:30 02/27/18 23:33 White Blood Count 23.7 10^3/ul Red Blood Count 3.83 10^6/ul Hemoglobin 11.4 g/dl Hematocrit 36.0 % Mean Corpuscular Volume 94.0 fl Mean Corpuscular Hemoglobin 29.8 pg Mean Corpuscular 31.7 g/dl Hemoglobin Concent Red Cell Distribution Width 16.1 % Platelet Count 297 10^3/UL Mean Platelet Volume 10.3 fl Immature Granulocytes % 2.300 % Neutrophils % % Segmented Neutrophils % (Manual) 67 % Band Neutrophils % (Manual) 18 % Lymphocytes % % Lymphocytes % (Manual) 5 % Monocytes % % Monocytes % (Manual) 8 % Eosinophils % % Eosinophils % (Manual) 2 % Basophils % % Nucleated Red Blood Cells % 0.0 /100WBC Immature Granulocytes # 0.550 10^3/ul Neutrophils # 10^3/ul Neutrophils # (Manual) 16.9 10^3/ul Band Neutrophils # 4.2 10^3/ul Lymphocytes (Manual) 1.1 10^3/ul Lymphocytes # 10^3/ul Monocytes # 10^3/ul Monocytes # (Manual) 1.8 10^3/ul Eosinophils # 10^3/ul Basophils # 10^3/ul Nucleated Red Blood Cells # 10^3/ul Platelet Estimate NORMAL Polychromasia 1+ Poikilocytosis 2+ Anisocytosis 1+ Prothrombin Time 13.8 Sec Prothrombin Time Ratio 1.1 INR International Normalized Ratio 1.05 Activated Partial Thromboplast 42.9 Sec Time Sodium Level 132 mmol/L Potassium Level 4.3 mmol/L Chloride Level 94 mmol/L Carbon Dioxide Level 19 mmol/L Anion Gap 19 Blood Urea Nitrogen 59 mg/dl Creatinine 8.88 mg/dl Est Glomerular Filtrat Rate mL/min mL/min Glucose Level 92 mg/dl Calcium Level 8.8 mg/dl Total Bilirubin 0.0 mg/dl Direct Bilirubin 0.00 mg/dl Indirect Bilirubin 0.0 mg/dl Aspartate Amino Transf (AST/SGOT) 25 IU/L Alanine < 6 IU/L Aminotransferase (ALT/SGPT) Alkaline Phosphatase 148 IU/L Troponin I 0.043 ng/ml Total Protein 7.7 g/dl Albumin 3.7 g/dl Globulin 4.00 g/dl Albumin/Globulin Ratio 0.92 Bedside Glucose 90 mg/dL POC Venous Lactate 1.5 mmol/L Current Medications Medications Dose Sig/Joaquin Start Time Status Last (Trade) Ordered Route PRN Stop Time Admin Dose Reason Admin Piperacillin 50 ml @ ONCE ONCE 02/28/18 Sod/ 100 mls/hr IVPB 01:30 Tazobactam 02/28/18 01:59 Sod Procedures/[place] [id number] Radiology Main Line: [phone] DIAGNOSTIC IMAGING REPORT Patient: TRACEY GUZMAN : 1935 Age: 82 Sex: M MR #: [id number] DOS: 02/27/18 2318 Ordering MD: SHELBY RENEE MD Location: E/R Room/Bed: PROCEDURE: CT abdomen and pelvis without contrast. CLINICAL INDICATION: Abdominal pain. TECHNIQUE: CT scan of the abdomen and pelvis without contrast was performed. Sagittal and coronal reformatted images were obtained from the axial source images. DICOM images are available. One or more of the following dose reduction techniques were used: Automated exposure control, adjustment of the mA and/or kV according to patient size, use of iterative reconstruction technique. CTDI = 9.92 mGy; DLP = 599.46 mGy-cm COMPARISON: 12/06/2017 FINDINGS: Visualized lower thorax: Cardiomegaly is again noted. Decreased right pleural effusion compared to the prior examination with mild bibasilar subsegmental atelectasis or scarring. Liver, gallbladder, pancreas and spleen: The liver is normal and size, contour and attenuation. There is no evidence for a liver mass or ductal dilatation, an incidental punctate granulomatous calcification is again noted. The gallbladder is distended but otherwise unremarkable. No common bile duct abnormality is demonstrated. The pancreas is unremarkable. The spleen is normal in size with a few punctate granulomatous calcifications. Adrenal glands and genitourinary system: The adrenal glands are normal bilaterally. Right renal atrophy is again demonstrated with mild thinning of the left renal cortex concerning for medical renal disease. There is no calculus or hydronephrosis. The ureters are unremarkable. Urinary bladder is contracted but difficult to evaluate. The prostate gland is normal in size. The scrotum shows no evidence of abnormality. Gastrointestinal system: The stomach is decompressed and shows no other abnormality. The small bowel is normal in caliber with no ileus, obstruction or wall thickening. The appendix and surrounding fat are within the limits of n ormal. There is abnormal wall thickening involving the entire colon from the cecum to the rectum consistent with diffuse colitis. There is moderate to severe pericolonic inflammatory fat stranding. There is no evidence for pneumatosis or extraluminal gas. Some dense fecal debris seen within the cecum. Peritoneum, retroperitoneum, lymph nodes and vessels: The abdominal aorta is normal in caliber. There is moderate aortic and iliac system atherosclerotic calcification. The inferior vena cava is unremarkable. There is no evidence for adenopathy or mass. There is no ascites. No pneumoperitoneum is present Osseous structures and musculoskeletal findings: There is no fracture, lytic or blastic lesion. Degenerative enthesopathy of the thoracolumbar spine is present. No muscular abnormality or soft tissue pathology is present. RPTAT:HJJR IMPRESSION: 1. Interval development compared to the study of 12/06/2017 of diffuse colonic wall thickening and pericolonic fat inflammation from the cecum to the rectum consistent with severe pancolitis most likely infectious or inflammatory without evidence of pneumatosis, pneumoperitoneum or ascites. 2. Decrease without complete resolution of right pleural effusion compared to prior study. 3. Gallbladder hydrops without evidence for cholecystitis. 4. Incidental chronic granulomatous disease of the liver and spleen. 5. Urinary bladder contraction. 6. Aortic and iliac system atherosclerotic calcification. 7. Right renal atrophy with left renal cortex thinning consistent with medical renal disease. Physician Diane Date Time Electronically viewed and signed by Physician Diane on 02/28/2018 00:54 JR/ CC: SHELBY RENEE MD [id number] [place] [address] Radiology Main Line: [phone] DIAGNOSTIC IMAGING REPORT Patient: TRACEY GUZMAN : 1935 Age: 82 Sex: M MR #: [id number] DOS: 02/27/18 2318 Ordering MD: SHELBY RENEE MD Location: E/R Room/Bed: PROCEDURE: XR Chest. CLINICAL INDICATION: Chest pain. Possible sepsis TECHNIQUE: Portable AP view of the chest was obtained. COMPARISON: CR CHEST 05/16/2017; SD CR CHEST 05/13/2017; SD CR CHEST 05/07/2017 FINDINGS: The cardiomediastinal silhouette is mildly enlarged . Bibasilar subsegmental atelectasis is present. Blunting of the costophrenic angles compatible small right pleural effusion. Degenerative enthesopathy of the thoracic spine is present. There is atherosclerotic calcification of the aorta. A right-sided Perma-Cath is present the tip in the right atrium. RPTAT:HJJR IMPRESSION: 1. Cardiac silhouette enlargement with small right pleural effusion and bibasilar subsegmental atelectasis but no evidence of congestive heart failure. 2. Right-sided Perma-Cath in satisfactory position. 3. Aortic atherosclerosis is present. Physician Diane Date Time Electronically viewed and signed by Chintan Tian Physician on 02/28/2018 00:56 JR/ CC: SHELBY RENEE MD [id number] EKG: Read by emergency physician Rate/Rhythm: Normal Sinus Rhythm 61 beats/min QRS, ST, T-waves: No ST elevation, no T inversion, IRBBB Impression: Abnormal EKG MEDICAL MAKING DECISION: The patient is a 82-year-old male, presenting with acute pancolitis, right pleural effusion. He was treated with Zosyn IV for acute pancolitis The differential diagnoses considered include but are not limited to cholelithiasis, cholecystitis, choledocholithiasis, cholangitis, pancreatitis, hepatitis, gastritis, peptic ulcer disease, gastric ulcer, appendicitis, cystitis, diverticulitis, partial small bowel obstruction. Departure Diagnosis: Primary Impression: Pancolitis Additional Impression: Anemia Condition: Stable Comments I discussed the findings with the patient. I discussed the patient with the hospitalist Dr Oro at 1:30 am . who was made aware of the lab, the treatment, the patient condition. The patient is admitted to [facility] Disclaimer: Inadvertent spelling and grammatical errors are likely due to EHR/dictation software use and do not reflect on the overall quality of patient care. Also, please note that the electronic time recorded on this note does not necessarily reflect the actual time of the patient encounter. SHELBY RENEE MD Feb 27, 2018 23:01
[2018-02-28] MEDS ORDERED: PIPER-TAZO 2.25 GM (PMX) 50 ML IVPB ONE (01:30)
[2018-02-28 03:15] VITALS: BP 112/58; PULSE 68; RESP 20; Ht 162.6 cm; Wt 65.1 kg
[2018-02-28] MEDS ORDERED: ONDANSETRON 4 MG INJ IV PRN (04:30)
[2018-02-28] MEDS ORDERED: NACL 0.9% 3 ML SYG IV SCH (04:30)
[2018-02-28] MEDS ORDERED: ALBUTEROL HFA 8 GM INHALER INH PRN (04:30)
[2018-02-28] MEDS: PANTOPRAZOLE (EC) 40 MG TAB PO SCH (05:29)
[2018-02-28] MEDS: DEXTROSE 5%-0.45% NACL 1,000 ML IV SCH ×2 (05:29→18:11)
--- NOTE | 2018-02-28 06:52 | NUR ---
EOSS: PATIENT ADMITTED FROM ED AT 3 AM VIA STRETCHER WITH DX OF ACUTE PANCOLITIS. MOANING IN PAIN, OFFERED PAIN MEDICATION, PATIENT REFUSED. PATIENT WAS ABLE TO SLEEP EVEN WITH PAIN. SKIN ASSESSMENT DONE - INTACT, PICTURES TAKEN. DR. YODER NOTIFIED OF ADMISSIONS WITH ORDERS NOTED & CARRIED OUT. PATIENT NPO EXCEPT MEDS. NEEDS MET & ATTENDED. WILL CONTINUE WITH POC.
[2018-02-28 07:00] VITALS: BP 123/54; PULSE 74; RESP 20
--- NOTE | 2018-02-28 07:08 | HP ---
Date/Time of Note Date/Time of Note DATE: 02/28/18 TIME: 07:01 Assessment/Plan VTE Prophylaxis Pharmacological prophylaxis: heparin Lines/Catheters IV Catheter Type (from Nrsg): Saline Lock Assessment/Plan Assessment/Plan 82-year-old male with a history of ESRD on HD BPH, epilepsy, anemia, meningioma status post craniotomy, COPD, hypertension, herpes esophagitis, colitis with several days history of abdominal pain and diarrhea found to be septic as evidenced by leukocytosis and tachycardia, secondary to severe pancolitis. PLAN Keep n.p.o. with IV fluid IV antibiotic GI consult Patient may benefit from mesalamine. Will await GI recommendation Nephrology for dialysis Continue home meds when no longer n.p.o. Result Diagram: 02/28/1842702/28/18427 Results 24hrs Laboratory Tests Test 02/27/18 23:10 02/27/18 23:30 02/27/18 23:33 02/28/18 02:18 White Blood Count 23.7 #H Red Blood Count 3.83 #L Hemoglobin 11.4 #L Hematocrit 36.0 #L Mean Corpuscular 94.0 Volume Mean Corpuscular 29.8 Hemoglobin Mean Corpuscular 31.7 L Hemoglobin Concent Red Cell 16.1 H Distribution Width Platelet Count 297 Mean Platelet Volume 10.3 Immature 2.300 H Granulocytes % Neutrophils % Segmented 67 Neutrophils % (Manual) Band Neutrophils % 18 H (Manual) Lymphocytes % Lymphocytes % 5 L (Manual) Monocytes % Monocytes % (Manual) 8 Eosinophils % Eosinophils % 2 (Manual) Basophils % Nucleated Red Blood 0.0 Cells % Immature 0.550 H Granulocytes # Neutrophils # Neutrophils # 16.9 H (Manual) Band Neutrophils # 4.2 H Lymphocytes (Manual) 1.1 Lymphocytes # Monocytes # Monocytes # (Manual) 1.8 H Eosinophils # Basophils # Nucleated Red Blood Cells # Platelet Estimate NORMAL Polychromasia 1+ Poikilocytosis 2+ Anisocytosis 1+ Prothrombin Time 13.8 # Prothrombin Time 1.1 Ratio INR International 1.05 Normalized Ratio Activated 42.9 H Partial Thromboplast Time Sodium Level 132 L Potassium Level 4.3 Chloride Level 94 L Carbon Dioxide Level 19 L Anion Gap 19 H Blood Urea Nitrogen 59 H Creatinine 8.88 H Est Glomerular Filtrat Rate mL/min Glucose Level 92 Calcium Level 8.8 Total Bilirubin 0.0 L Direct Bilirubin 0.00 Indirect Bilirubin 0.0 Aspartate Amino 25 Transf (AST/SGOT) Alanine < 6 L Aminotransferase (AL T/SGPT) Alkaline Phosphatase 148 H Troponin I 0.043 Total Protein 7.7 Albumin 3.7 Globulin 4.00 H Albumin/Globulin 0.92 Ratio Bedside Glucose 90 POC Venous Lactate 1.5 0.9 Test 02/28/18 04:28 White Blood Count 20.8 H Red Blood Count 3.33 L Hemoglobin 9.9 L Hematocrit 30.7 L Mean Corpuscular 92.2 Volume Mean Corpuscular 29.7 Hemoglobin Mean Corpuscular 32.2 Hemoglobin Concent Red Cell 16.0 H Distribution Width Platelet Count 277 Mean Platelet Volume 10.8 H Immature 1.100 H Granulocytes % Neutrophils % 82.9 H Lymphocytes % 6.8 L Monocytes % 8.3 Eosinophils % 0.5 Basophils % 0.4 Nucleated Red Blood 0.0 Cells % Immature 0.230 H Granulocytes # Neutrophils # 17.2 H Lymphocytes # 1.4 Monocytes # 1.7 H Eosinophils # 0.1 Basophils # 0.1 Nucleated Red Blood 0.0 Cells # Sodium Level 133 L Potassium Level 4.5 Chloride Level 96 L Carbon Dioxide Level 17 L Anion Gap 20 H Blood Urea Nitrogen 64 H Creatinine 8.71 H Est Glomerular Filtrat Rate mL/min Glucose Level 91 Lactic Acid Level 1.4 Calcium Level 8.2 L Total Bilirubin 0.0 L Direct Bilirubin 0.00 Indirect Bilirubin 0.0 Aspartate Amino 22 Transf (AST/SGOT) Alanine 15 Aminotransferase (AL T/SGPT) Alkaline Phosphatase 117 Total Protein 5.8 #L Albumin 2.7 #L Globulin 3.10 Albumin/Globulin 0.87 Ratio HPI/ROS Admit Date/Time Admit Date/Time Feb 28, 2018 at 01:31 Hx of Present Illness This is an 82-year-old male with a history of ESRD on HD diabetes mellitus, BPH, epilepsy, anemia, meningioma status post craniotomy, COPD, hypertension, herpes esophagitis, colitis who presented to ER complaining of abdominal pain and diarrhea of several days duration. CT abdomen/pelvis shows severe pancolitis. WBC almost 24,000. Patient was admitted here about 3 months ago for abdominal pain. At that time he was also found to have colitis. During hospitalization he also had GI bleed for which he underwent EGD and colonoscopy was a finding of herpes esophagitis and colitis. Patient was also initiated with dialysis during last hospitalization. PMH/Family/Social Past Medical History Medications Current Medications Dextrose/Sodium Chloride 1,000 ml @ 75 mls/hr [id number] IV Last administered on 02/28/18at 05:29; Admin Dose 75 MLS/HR; Start 02/28/18 at 04:16 IV Flush (NS 3 ml) 3 ml PER PROTOCOL IV ; Start 02/28/18 at 04:30 Ondansetron HCl (Zofran Inj) 4 mg Q6H PRN IV NAUSEA AND/OR VOMITING; Start 02/28/18 at 04:30 Morphine Sulfate (morphine) 2 mg Q4H PRN IV SEVERE PAIN LEVEL 7-10; Start 02/28/18 at 04:30 Albuterol (Ventolin Hfa) 2 puff Q4H PRN INH WHEEZING AND SOB; Start 02/28/18 at 04:30 Amiodarone HCl (Cordarone) 200 mg DAILY PO ; Start 02/28/18 at 09:00 Hydralazine HCl (Apresoline) 25 mg Q6 PO Last administered on 02/28/18at 05:33; Admin Dose 25 MG; Start 02/28/18 at 06:00 Montelukast Sodium (Singulair) 10 mg QHS PO ; Start 02/28/18 at 21:00 Pantoprazole (Protonix Tab) 40 mg DAILY@0600 PO Last administered on 02/28/18at 05:29; Admin Dose 40 MG; Start 02/28/18 at 06:00 Tamsulosin HCl (Flomax) 0.4 mg DAILY@2100 PO ; Start 02/28/18 at 21:00 Miscellaneous Information 1 puff DAILY INHALATION ; Start 02/28/18 at 09:00; Status UNV Piperacillin Sod/ Tazobactam Sod 50 ml @ 200 mls/hr Q8 IVPB ; Start 02/28/18 at 07:30 Coded Allergies: No Known Drug Allergies (Unverified Allergy, Mild, 02/28/18) Past Surgical History Past Surgical Hx: other Family History Significant Family History: no pertinent family hx Social History Alcohol Use: none Smoking Status: Former smoker Drug Use: none Exam/Review of Systems Vital Signs Vitals Vital Signs Date Temp Pulse Resp B/P (MAP) Pulse Ox O2 O2 Flow FiO2 Time Delivery Rate 02/28/18 Nasal 2.0 03:15 Cannula 02/28/18 98.5 68 20 112/58 100 03:15 (76) Exam Exam Constitutional: alert, oriented, well developed, other Head: normocephalic, atraumatic Respiratory: normal air movement Cardiovascular: regular rate and rhythm Gastrointestinal: soft Extremities: normal pulses PMH: see HPI PSH: see HPI . ELTON YODER MD Feb 28, 2018 07:08
[2018-02-28] MEDS: morphine 4 MG/ML VIAL IV PRN ×3 (07:35→18:21)
[2018-02-28] MEDS: PIPER-TAZO 2.25 GM (PMX) 50 ML IVPB SCH ×3 (08:30→21:37)
[2018-02-28] MEDS: AMIODARONE 200 MG TAB PO SCH ×2 (08:31→09:58)
--- NOTE | 2018-02-28 15:13 | PN ---
Date/Time of Note Date/Time of Note DATE: 02/28/18 TIME: 15:08 Assessment/Plan VTE Prophylaxis Risk score (from Nsg)>0 risk: 3 SCD applied (from Nsg): Yes Pharmacological prophylaxis: other Lines/Catheters IV Catheter Type (from Nrsg): Peripheral IV Urinary Cath still in place: No Assessment/Plan Hospital Course S: Patient complaining of some throat pain. Otherwise no acute events o vernight. O: VS - see below PE: Gen: Lying in bed, complaining of some throat pain, otherwise no acute distress Head: Atraumatic. Eyes: Normal Conjunctiva. ENT: Normal External Ears, Nose and Mouth. Neck: Full range of motion. No meningismus. Resp: Clear to auscultation bilaterally. Cardio: Regular rate and rhythm. Abd: Soft, non distended, normal bowel sounds, + diffuse moderate abdominal tenderness, no rigidity/rebound/CVA tenderness Ext: No cyanosis, or edema. Neur: Awake and alert. No focal deficit Assessment/Plan: 82-year-old male with a history of ESRD on HD BPH, epilepsy, anemia,meningioma status post craniotomy , COPD, hypertension, herpes esophagitis, colitis with several days history of abdominal pain and diarrhea found to be septic as evidenced by leukocytosis and tachycardia, secondary to severe pancolitis. # Abdominal pain -secondary to findings of pancolitis, confirmed on CT scan. Phill lemon also came with leukocytosis. Of note patient has a prior history of colitis -For now continue to keep n.p.o. with IV fluid -Continue Zosyn IV antibiotic -Follow-up recommendations from GI consult, Patient may benefit from mesalamine. Will await GI recommendation # ESRD-on dialysis prior to admission -We will consult nephrology for dialysis #History of meningioma status post craniotomy -no present issues -Continue to monitor for now # COPD -appears stable -Monitor, duo nebs as needed # herpes esophagitis -apparently was diagnosed last admission 2 months ago, treated with acyclovir at that time -Monitor for now #BPH: No present issues -Continue current medication Result Diagram: 02/28/188 02/28/18427 Results 24hrs Laboratory Tests Test 02/27/18 23:10 02/27/18 23:30 02/27/18 23:33 02/28/18 02:18 White Blood Count 23.7 #H Red Blood Count 3.83 #L Hemoglobin 11.4 #L Hematocrit 36.0 #L Mean Corpuscular 94.0 Volume Mean Corpuscular 29.8 Hemoglobin Mean Corpuscular 31.7 L Hemoglobin Concent Red Cell 16.1 H Distribution Width Platelet Count 297 Mean Platelet Volume 10.3 Immature 2.300 H Granulocytes % Neutrophils % Segmented 67 Neutrophils % (Manual) Band Neutrophils % 18 H (Manual) Lymphocytes % Lymphocytes % 5 L (Manual) Monocytes % Monocytes % (Manual) 8 Eosinophils % Eosinophils % 2 (Manual) Basophils % Nucleated Red Blood 0.0 Cells % Immature 0.550 H Granulocytes # Neutrophils # Neutrophils # 16.9 H (Manual) Band Neutrophils # 4.2 H Lymphocytes (Manual) 1.1 Lymphocytes # Monocytes # Monocytes # (Manual) 1.8 H Eosinophils # Basophils # Nucleated Red Blood Cells # Platelet Estimate NORMAL Polychromasia 1+ Poikilocytosis 2+ Anisocytosis 1+ Prothrombin Time 13.8 # Prothrombin Time 1.1 Ratio INR International 1.05 Normalized Ratio Activated 42.9 H Partial Thromboplast Time Sodium Level 132 L Potassium Level 4.3 Chloride Level 94 L Carbon Dioxide Level 19 L Anion Gap 19 H Blood Urea Nitrogen 59 H Creatinine 8.88 H Est Glomerular Filtrat Rate mL/min Glucose Level 92 Calcium Level 8.8 Total Bilirubin 0.0 L Direct Bilirubin 0.00 Indirect Bilirubin 0.0 Aspartate Amino 25 Transf (AST/SGOT) Alanine < 6 L Aminotransferase (AL T/SGPT) Alkaline Phosphatase 148 H Troponin I 0.043 Total Protein 7.7 Albumin 3.7 Globulin 4.00 H Albumin/Globulin 0.92 Ratio Bedside Glucose 90 POC Venous Lactate 1.5 0.9 Test 02/28/18 04:28 02/28/18 10:01 White Blood Count 20.8 H Red Blood Count 3.33 L Hemoglobin 9.9 L Hematocrit 30.7 L Mean Corpuscular 92.2 Volume Mean Corpuscular 29.7 Hemoglobin Mean Corpuscular 32.2 Hemoglobin Concent Red Cell 16.0 H Distribution Width Platelet Count 277 Mean Platelet Volume 10.8 H Immature 1.100 H Granulocytes % Neutrophils % 82.9 H Lymphocytes % 6.8 L Monocytes % 8.3 Eosinophils % 0.5 Basophils % 0.4 Nucleated Red Blood 0.0 Cells % Immature 0.230 H Granulocytes # Neutrophils # 17.2 H Lymphocytes # 1.4 Monocytes # 1.7 H Eosinophils # 0.1 Basophils # 0.1 Nucleated Red Blood 0.0 Cells # Sodium Level 133 L Potassium Level 4.5 Chloride Level 96 L Carbon Dioxide Level 17 L Anion Gap 20 H Blood Urea Nitrogen 64 H Creatinine 8.71 H Est Glomerular Filtrat Rate mL/min Glucose Level 91 Lactic Acid Level 1.4 Calcium Level 8.2 L Total Bilirubin 0.0 L Direct Bilirubin 0.00 Indirect Bilirubin 0.0 Aspartate Amino 22 Transf (AST/SGOT) Alanine 15 Aminotransferase (AL T/SGPT) Alkaline Phosphatase 117 Total Protein 5.8 #L Albumin 2.7 #L Globulin 3.10 Albumin/Globulin 0.87 Ratio Bedside Glucose 107 Exam/Review of Systems Vital Signs Vitals Vital Signs Date Temp Pulse Resp B/P (MAP) Pulse Ox O2 O2 Flow FiO2 Time Delivery Rate 02/28/18 99.7 74 20 123/54 97 Room Air 07:00 (77) 02/28/18 2.0 03:15 Medications Medications Current Medications Dextrose/Sodium Chloride 1,000 ml @ 75 mls/hr [id number] IV Last administered on 02/28/18at 05:29; Admin Dose 75 MLS/HR; Start 02/28/18 at 04:16 IV Flush (NS 3 ml) 3 ml PER PROTOCOL IV ; Start 02/28/18 at 04:30 Ondansetron HCl (Zofran Inj) 4 mg Q6H PRN IV NAUSEA AND/OR VOMITING; Start 02/28/18 at 04:30 Morphine Sulfate (morphine) 2 mg Q4H PRN IV SEVERE PAIN LEVEL 7-10 Last administered on 02/28/18at 13:50; Admin Dose 2 MG; Start 02/28/18 at 04:30 Albuterol (Ventolin Hfa) 2 puff Q4H PRN INH WHEEZING AND SOB; Start 02/28/18 at 04:30 Amiodarone HCl (Cordarone) 200 mg DAILY PO Last administered on 02/28/18at 09:58; Admin Dose 200 MG; Start 02/28/18 at 09:00 Hydralazine HCl (Apresoline) 25 mg Q6 PO Last administered on 02/28/18at 05:33; Admin Dose 25 MG; Start 02/28/18 at 06:00 Montelukast Sodium (Singulair) 10 mg QHS PO ; Start 02/28/18 at 21:00 Pantoprazole (Protonix Tab) 40 mg DAILY@0600 PO Last administered on 02/28/18at 05:29; Admin Dose 40 MG; Start 02/28/18 at 06:00 Tamsulosin HCl (Flomax) 0.4 mg DAILY@2100 PO ; Start 02/28/18 at 21:00 Arformoterol Tartrate (Brovana (Neb)) 2 ml BID RESP THERAPY HHN ; Start 02/28/18 at 20:00 Piperacillin Sod/ Tazobactam Sod 50 ml @ 100 mls/hr Q8 IVPB Last administered on 02/28/18at 13:40; Admin Dose 100 MLS/HR; Start 02/28/18 at 07:30 Budesonide (Pulmicort (Neb)) 0.5 mg BID RESP THERAPY HHN ; Start 02/28/18 at 20:00 Acetaminophen (Tylenol Tab) 650 mg Q6H PRN PO MILD PAIN(1-3)OR ELEVATED TEMP; Start 02/28/18 at 15:00 TON POTTER Feb 28, 2018 15:13
--- NOTE | 2018-02-28 15:22 | CONS ---
Date/Time of Note Date/Time of Note DATE: 02/28/18 TIME: 15:04 Assessment/Plan Assessment/Plan Hospital Course Summary Assessment and Plan: Assessment: Pancolitis - likely infectious vs inflammatory Leukocytosis with low grade fevers Right pleural effusion- decreased in size ESRD on HD HTN BPH Epilepsy COPD History of herpes simplex esophagitis Plan: Stool studies pending Continue ABX therapy Monitor labs Further recommendations based on clinical course Patient seen in collaboration with Dr. Espana Result Diagram: 02/28/18 0428 02/28/18 0428 Results 24hrs Laboratory Tests Test 02/27/18 23:10 02/27/18 23:30 02/27/18 23:33 02/28/18 02:18 White Blood Count 23.7 #H Red Blood Count 3.83 #L Hemoglobin 11.4 #L Hematocrit 36.0 #L Mean Corpuscular 94.0 Volume Mean Corpuscular 29.8 Hemoglobin Mean Corpuscular 31.7 L Hemoglobin Concent Red Cell 16.1 H Distribution Width Platelet Count 297 Mean Platelet Volume 10.3 Immature 2.300 H Granulocytes % Neutrophils % Segmented 67 Neutrophils % (Manual) Band Neutrophils % 18 H (Manual) Lymphocytes % Lymphocytes % 5 L (Manual) Monocytes % Monocytes % (Manual) 8 Eosinophils % Eosinophils % 2 (Manual) Basophils % Nucleated Red Blood 0.0 Cells % Immature 0.550 H Granulocytes # Neutrophils # Neutrophils # 16.9 H (Manual) Band Neutrophils # 4.2 H Lymphocytes (Manual) 1.1 Lymphocytes # Monocytes # Monocytes # (Manual) 1.8 H Eosinophils # Basophils # Nucleated Red Blood Cells # Platelet Estimate NORMAL Polychromasia 1+ Poikilocytosis 2+ Anisocytosis 1+ Prothrombin Time 13.8 # Prothrombin Time 1.1 Ratio INR International 1.05 Normalized Ratio Activated 42.9 H Partial Thromboplast Time Sodium Level 132 L Potassium Level 4.3 Chloride Level 94 L Carbon Dioxide Level 19 L Anion Gap 19 H Blood Urea Nitrogen 59 H Creatinine 8.88 H Est Glomerular Filtrat Rate mL/min Glucose Level 92 Calcium Level 8.8 Total Bilirubin 0.0 L Direct Bilirubin 0.00 Indirect Bilirubin 0.0 Aspartate Amino 25 Transf (AST/SGOT) Alanine < 6 L Aminotransferase (AL T/SGPT) Alkaline Phosphatase 148 H Troponin I 0.043 Total Protein 7.7 Albumin 3.7 Globulin 4.00 H Albumin/Globulin 0.92 Ratio Bedside Glucose 90 POC Venous Lactate 1.5 0.9 Test 02/28/18 04:28 02/28/18 10:01 White Blood Count 20.8 H Red Blood Count 3.33 L Hemoglobin 9.9 L Hematocrit 30.7 L Mean Corpuscular 92.2 Volume Mean Corpuscular 29.7 Hemoglobin Mean Corpuscular 32.2 Hemoglobin Concent Red Cell 16.0 H Distribution Width Platelet Count 277 Mean Platelet Volume 10.8 H Immature 1.100 H Granulocytes % Neutrophils % 82.9 H Lymphocytes % 6.8 L Monocytes % 8.3 Eosinophils % 0.5 Basophils % 0.4 Nucleated Red Blood 0.0 Cells % Immature 0.230 H Granulocytes # Neutrophils # 17.2 H Lymphocytes # 1.4 Monocytes # 1.7 H Eosinophils # 0.1 Basophils # 0.1 Nucleated Red Blood 0.0 Cells # Sodium Level 133 L Potassium Level 4.5 Chloride Level 96 L Carbon Dioxide Level 17 L Anion Gap 20 H Blood Urea Nitrogen 64 H Creatinine 8.71 H Est Glomerular Filtrat Rate mL/min Glucose Level 91 Lactic Acid Level 1.4 Calcium Level 8.2 L Total Bilirubin 0.0 L Direct Bilirubin 0.00 Indirect Bilirubin 0.0 Aspartate Amino 22 Transf (AST/SGOT) Alanine 15 Aminotransferase (AL T/SGPT) Alkaline Phosphatase 117 Total Protein 5.8 #L Albumin 2.7 #L Globulin 3.10 Albumin/Globulin 0.87 Ratio Bedside Glucose 107 CC: MILTON ESPANA ; Consultation Date/Type/Reason Admit Date/Time Feb 28, 2018 at 01:31 Date of Consultation: Feb 28, 2018 Type of Consult GI Reason for Consultation Pancolitis Hx of Present Illness This is an 82-year-old Bengali speaking male with past medical history of end- stage renal disease on hemodialysis, right pleural effusion,meningioma status post craniotomy, hypertension, BPH, epilepsy, COPD, history of EGD colonoscopy December 2017 EGD positive for herpes simplex esophagitis, colonoscopy field mild colitis of the left colon, moderate-sized internal hemorrhoids otherwise normal colonoscopy right colon biopsy pathology shows active colitis with changes suggestive of healing erosion, left colon biopsy showing mucosa with focal acute cyst, histologically nonspecific no dysplasia or granulomas identified. Presented to the ED with complaints of abdominal pain and diarrhea for several days. 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 Currently patient has been started on antibiotic therapy been ordered additionally on C. difficile was ordered but rejected stool was not described as watery we will reorder C. difficile and additionally order Giardia. Start clear liquid diet monitor labs. Provide further recommendations based on clinical course. Review of Systems: A 12 system, review was conducted and is negative except as noted in the HPI or here. Past Medical History Medications Current Medications Dextrose/Sodium Chloride 1,000 ml @ 75 mls/hr [id number] IV Last administered on 02/28/18at 05:29; Admin Dose 75 MLS/HR; Start 02/28/18 at 04:16 IV Flush (NS 3 ml) 3 ml PER PROTOCOL IV ; Start 02/28/18 at 04:30 Ondansetron HCl (Zofran Inj) 4 mg Q6H PRN IV NAUSEA AND/OR VOMITING; Start 02/28/18 at 04:30 Morphine Sulfate (morphine) 2 mg Q4H PRN IV SEVERE PAIN LEVEL 7-10 Last administered on 02/28/18at 13:50; Admin Dose 2 MG; Start 02/28/18 at 04:30 Albuterol (Ventolin Hfa) 2 puff Q4H PRN INH WHEEZING AND SOB; Start 02/28/18 at 04:30 Amiodarone HCl (Cordarone) 200 mg DAILY PO Last administered on 02/28/18at 09:58; Admin Dose 200 MG; Start 02/28/18 at 09:00 Hydralazine HCl (Apresoline) 25 mg Q6 PO Last administered on 02/28/18at 05:33; Admin Dose 25 MG; Start 02/28/18 at 06:00 Montelukast Sodium (Singulair) 10 mg QHS PO ; Start 02/28/18 at 21:00 Pantoprazole (Protonix Tab) 40 mg DAILY@0600 PO Last administered on 02/28/18at 05:29; Admin Dose 40 MG; Start 02/28/18 at 06:00 Tamsulosin HCl (Flomax) 0.4 mg DAILY@2100 PO ; Start 02/28/18 at 21:00 Arformoterol Tartrate (Brovana (Neb)) 2 ml BID RESP THERAPY HHN ; Start 02/28/18 at 20:00 Piperacillin Sod/ Tazobactam Sod 50 ml @ 100 mls/hr Q8 IVPB Last administered on 02/28/18at 13:40; Admin Dose 100 MLS/HR; Start 02/28/18 at 07:30 Budesonide (Pulmicort (Neb)) 0.5 mg BID RESP THERAPY HHN ; Start 02/28/18 at 20:00 Allergies: Coded Allergies: No Known Drug Allergies (Unverified Allergy, Mild, 02/28/18) Past Surgical History Past Surgical Hx: other Social History Smoking Status: Former smoker Exam/Review of Systems Vital Signs Vitals Vital Signs Date Temp Pulse Resp B/P (MAP) Pulse Ox O2 O2 Flow FiO2 Time Delivery Rate 02/28/18 99.7 74 20 123/54 97 Room Air 07:00 (77) 02/28/18 2.0 03:15 Exam PHYSICAL EXAMINATION: GENERAL: Elderly chronically ill appearing SKIN:Dialysis catheter EYES: Pupils equal reactive to light, no discharge. EARS/NOSE AND THROAT: Ears normal, nose normal NECK: Supple CHEST: Inspection within normal limits. CARDIOVASCULAR: Heart: Regular rate and rhythm RESPIRATORY: Lungs clear to auscultation GASTROINTESTINAL AND LIVER: Abdomen: Soft, generalized tenderness, non- distended, no guarding, no rebound tenderness, normoactive bowel sounds. Rectal: Deferred. GENITOURINARY:Not examined EXTREMITIES: No cyanosis, clubbing or edema. Medications Medications Current Medications Dextrose/Sodium Chloride 1,000 ml @ 75 mls/hr [id number] IV Last administered on 02/28/18at 05:29; Admin Dose 75 MLS/HR; Start 02/28/18 at 04:16 IV Flush (NS 3 ml) 3 ml PER PROTOCOL IV ; Start 02/28/18 at 04:30 Ondansetron HCl (Zofran Inj) 4 mg Q6H PRN IV NAUSEA AND/OR VOMITING; Start 02/28/18 at 04:30 Morphine Sulfate (morphine) 2 mg Q4H PRN IV SEVERE PAIN LEVEL 7-10 Last administered on 02/28/18at 13:50; Admin Dose 2 MG; Start 02/28/18 at 04:30 Albuterol (Ventolin Hfa) 2 puff Q4H PRN INH WHEEZING AND SOB; Start 02/28/18 at 04:30 Amiodarone HCl (Cordarone) 200 mg DAILY PO Last administered on 02/28/18at 09:58; Admin Dose 200 MG; Start 02/28/18 at 09:00 Hydralazine HCl (Apresoline) 25 mg Q6 PO Last administered on 02/28/18at 05:33; Admin Dose 25 MG; Start 02/28/18 at 06:00 Montelukast Sodium (Singulair) 10 mg QHS PO ; Start 02/28/18 at 21:00 Pantoprazole (Protonix Tab) 40 mg DAILY@0600 PO Last administered on 02/28/18at 05:29; Admin Dose 40 MG; Start 02/28/18 at 06:00 Tamsulosin HCl (Flomax) 0.4 mg DAILY@2100 PO ; Start 02/28/18 at 21:00 Arformoterol Tartrate (Brovana (Neb)) 2 ml BID RESP THERAPY HHN ; Start 02/28/18 at 20:00 Piperacillin Sod/ Tazobactam Sod 50 ml @ 100 mls/hr Q8 IVPB Last administered on 02/28/18at 13:40; Admin Dose 100 MLS/HR; Start 02/28/18 at 07:30 Budesonide (Pulmicort (Neb)) 0.5 mg BID RESP THERAPY HHN ; Start 02/28/18 at 20:00 BEVERLEY TIDWELL Feb 28, 2018 15:15
[2018-02-28 15:29] VITALS: BP 123/58; PULSE 77; RESP 16
--- NOTE | 2018-02-28 18:43 | NUR ---
RN NOTE Patient resting in bed. Recently medicated for pain. Verbalized no other concerns at this time.. Call light within reach. MD aware of patient status. Will continue to monitor until end of shift and endorse report, pending input/output, IV intake and pending orders to incoming RN for continuity of care.
[2018-02-28 19:25] VITALS: BP 134/64; PULSE 82; RESP 18
[2018-02-28] MEDS ORDERED: GLUCOSE GEL 15 GRAM TUBE PO PRN ×2 (19:30)
[2018-02-28] MEDS ORDERED: GLUCOSE GEL 15 GRAM TUBE BUCCAL PRN (19:30)
[2018-02-28] MEDS ORDERED: DEXTROSE 50% 50 ML SYRINGE IV PRN ×2 (19:30)
[2018-02-28] MEDS ORDERED: GLUCAGON 1 MG INJ IM PRN (19:30)
[2018-02-28] MEDS: BUDESONIDE (NEB) 0.5MG/2ML AMP HHN SCH (19:57)
[2018-02-28] MEDS: ARFORMOTEROL TARTRATE 15MCG/2 ML AMP HHN SCH (19:57)
--- NOTE | 2018-02-28 20:59 | CONS ---
Date/Time of Note Date/Time of Note DATE: 02/28/18 TIME: 20:58 Assessment/Plan Assessment/Plan Assessment/Plan 1, ESRD on HD TTS schedule at [facility] [place] [facility], missed HD today 2. sepsis due to acute colitis 3. acute pancolitis 4. H/o HTN 5. H/O epilepsy 6. Failure to thrive due to generalised weakness and colitis 7.History of meningioma status post craniotomy -no present issues 8. h/o COPD, H/o BPH, H/o Herpes Esophagitis Plan: IVF D51/2 NS at75 cc/hr Technical Maintenance Specialist consult to do calorie count IV abx for acute colitis, NPO, GI has been consulted on the case No plan for Today and tomorrow, due to Low volume status and Electrolyte stable, will monitor it Megace 400mg pO BID for apetite Next HD will be on Friday Thanks for consultation we will continue to follow up Result Diagram: 02/28/18 0428 02/28/18427 Results 24hrs Laboratory Tests Test 02/27/18 23:10 02/27/18 23:30 02/27/18 23:33 02/28/18 02:18 White Blood Count 23.7 #H Red Blood Count 3.83 #L Hemoglobin 11.4 #L Hematocrit 36.0 #L Mean Corpuscular 94.0 Volume Mean Corpuscular 29.8 Hemoglobin Mean Corpuscular 31.7 L Hemoglobin Concent Red Cell 16.1 H Distribution Width Platelet Count 297 Mean Platelet Volume 10.3 Immature 2.300 H Granulocytes % Neutrophils % Segmented 67 Neutrophils % (Manual) Band Neutrophils % 18 H (Manual) Lymphocytes % Lymphocytes % 5 L (Manual) Monocytes % Monocytes % (Manual) 8 Eosinophils % Eosinophils % 2 (Manual) Basophils % Nucleated Red Blood 0.0 Cells % Immature 0.550 H Granulocytes # Neutrophils # Neutrophils # 16.9 H (Manual) Band Neutrophils # 4.2 H Lymphocytes (Manual) 1.1 Lymphocytes # Monocytes # Monocytes # (Manual) 1.8 H Eosinophils # Basophils # Nucleated Red Blood Cells # Platelet Estimate NORMAL Polychromasia 1+ Poikilocytosis 2+ Anisocytosis 1+ Prothrombin Time 13.8 # Prothrombin Time 1.1 Ratio INR International 1.05 Normalized Ratio Activated 42.9 H Partial Thromboplast Time Sodium Level 132 L Potassium Level 4.3 Chloride Level 94 L Carbon Dioxide Level 19 L Anion Gap 19 H Blood Urea Nitrogen 59 H Creatinine 8.88 H Est Glomerular Filtrat Rate mL/min Glucose Level 92 Calcium Level 8.8 Total Bilirubin 0.0 L Direct Bilirubin 0.00 Indirect Bilirubin 0.0 Aspartate Amino 25 Transf (AST/SGOT) Alanine < 6 L Aminotransferase (AL T/SGPT) Alkaline Phosphatase 148 H Troponin I 0.043 Total Protein 7.7 Albumin 3.7 Globulin 4.00 H Albumin/Globulin 0.92 Ratio Bedside Glucose 90 POC Venous Lactate 1.5 0.9 Test 02/28/18 04:28 02/28/18 10:01 White Blood Count 20.8 H Red Blood Count 3.33 L Hemoglobin 9.9 L Hematocrit 30.7 L Mean Corpuscular 92.2 Volume Mean Corpuscular 29.7 Hemoglobin Mean Corpuscular 32.2 Hemoglobin Concent Red Cell 16.0 H Distribution Width Platelet Count 277 Mean Platelet Volume 10.8 H Immature 1.100 H Granulocytes % Neutrophils % 82.9 H Lymphocytes % 6.8 L Monocytes % 8.3 Eosinophils % 0.5 Basophils % 0.4 Nucleated Red Blood 0.0 Cells % Immature 0.230 H Granulocytes # Neutrophils # 17.2 H Lymphocytes # 1.4 Monocytes # 1.7 H Eosinophils # 0.1 Basophils # 0.1 Nucleated Red Blood 0.0 Cells # Sodium Level 133 L Potassium Level 4.5 Chloride Level 96 L Carbon Dioxide Level 17 L Anion Gap 20 H Blood Urea Nitrogen 64 H Creatinine 8.71 H Est Glomerular Filtrat Rate mL/min Glucose Level 91 Lactic Acid Level 1.4 Calcium Level 8.2 L Total Bilirubin 0.0 L Direct Bilirubin 0.00 Indirect Bilirubin 0.0 Aspartate Amino 22 Transf (AST/SGOT) Alanine 15 Aminotransferase (AL T/SGPT) Alkaline Phosphatase 117 Total Protein 5.8 #L Albumin 2.7 #L Globulin 3.10 Albumin/Globulin 0.87 Ratio Bedside Glucose 107 Consultation Date/Type/Reason Admit Date/Time Feb 28, 2018 at 01:31 Date of Consultation: Feb 28, 2018 Type of Consult NEPHROLOGY Reason for Consultation ESRD on HD ,admitted for Sepsis, Acute pancolitis Requesting Provider: TON POTTER of Present Illness 82-year-old male with a history of ESRD on HD BPH, epilepsy, anemia, meningioma status post craniotomy, COPD, hypertension, herpes esophagitis, colitis with several days history of abdominal pain and diarrhea found to be septic as evidenced by leukocytosis and tachycardia, secondary to severe pancolitis. As per daughter pt is not eating well for last few days and has been having nausea, with diarrhea pt is admitted to hospitalist service, NPO, IVF given, IV abx has been started, GI has been consulted for Colitis Renal has been consulted for dialysis need, pt gets his HD on Fri, , [place] [facility] Constitutional: poor po Eyes: no complaints ENT: no complaints Respiratory: pleuritic pain, shortness of breath Cardiovascular: no complaints Gastrointestinal: pain, diarrhea, nausea Genitourinary: no complaints Musculoskeletal: no complaints Skin: no complaints Neurologic: no complaints Endocrine: no complaints Lymphatic: no complaints Psychological: no complaints Immunologic: no complaints Past Medical History Medical History: high cholesterol, hypertension, other (ESRD on HD BPH, epilepsy, anemia, meningioma status post craniotomy, COPD, hypertension, herpes esophagitis) Medications Current Medications Dextrose/Sodium Chloride 1,000 ml @ 75 mls/hr [id number] IV Last administered on 02/28/18at 18:11; Admin Dose 75 MLS/HR; Start 02/28/18 at 04:16 IV Flush (NS 3 ml) 3 ml PER PROTOCOL IV ; Start 02/28/18 at 04:30 Ondansetron HCl (Zofran Inj) 4 mg Q6H PRN IV NAUSEA AND/OR VOMITING; Start 02/28/18 at 04:30 Morphine Sulfate (morphine) 2 mg Q4H PRN IV SEVERE PAIN LEVEL 7-10 Last administered on 02/28/18at 18:21; Admin Dose 2 MG; Start 02/28/18 at 04:30 Albuterol (Ventolin Hfa) 2 puff Q4H PRN INH WHEEZING AND SOB; Start 02/28/18 at 04:30 Amiodarone HCl (Cordarone) 200 mg DAILY PO Last administered on 02/28/18at 09:58; Admin Dose 200 MG; Start 02/28/18 at 09:00 Hydralazine HCl (Apresoline) 25 mg Q6 PO Last administered on 02/28/18at 18:12; Admin Dose 25 MG; Start 02/28/18 at 06:00 Montelukast Sodium (Singulair) 10 mg QHS PO ; Start 02/28/18 at 21:00 Pantoprazole (Protonix Tab) 40 mg DAILY@0600 PO Last administered on 02/28/18at 05:29; Admin Dose 40 MG; Start 02/28/18 at 06:00 Tamsulosin HCl (Flomax) 0.4 mg DAILY@2100 PO ; Start 02/28/18 at 21:00 Arformoterol Tartrate (Brovana (Neb)) 2 ml BID RESP THERAPY HHN Last administered on 02/28/18at 19:57; Admin Dose 2 ML; Start 02/28/18 at 20:00 Piperacillin Sod/ Tazobactam Sod 50 ml @ 100 mls/hr Q8 IVPB Last administered on 02/28/18at 13:40; Admin Dose 100 MLS/HR; Start 02/28/18 at 07:30 Budesonide (Pulmicort (Neb)) 0.5 mg BID RESP THERAPY HHN Last administered on 02/28/18at 19:57; Admin Dose 0.5 MG; Start 02/28/18 at 20:00 Acetaminophen (Tylenol Tab) 650 mg Q6H PRN PO MILD PAIN(1-3)OR ELEVATED TEMP; Start 02/28/18 at 15:00 Insulin Aspart (Novolog Insulin Pen) NOVOLOG *MILD* ALGORI... Q4 SC ; Start 02/28/18 at 21:00 Miscellaneous Information 1 ea NOTE XX ; Start 02/28/18 at 19:30 Glucose (Glutose) 15 gm Q15M PRN PO DECREASED GLUCOSE; Start 02/28/18 at 19:30 Glucose (Glutose) 22.5 gm Q15M PRN PO DECREASED GLUCOSE; Start 02/28/18 at 19:30 Dextrose (D50w Syringe) 25 ml Q15M PRN IV DECREASED GLUCOSE; Start 02/28/18 at 19:30 Dextrose (D50w Syringe) 50 ml Q15M PRN IV DECREASED GLUCOSE; Start 02/28/18 at 19:30 Glucagon (Glucagen) 1 mg Q15M PRN IM DECREASED GLUCOSE; Start 02/28/18 at 19:30 Glucose (Glutose) 15 gm Q15M PRN BUCCAL DECREASED GLUCOSE; Start 02/28/18 at 19:30 Allergies: Coded Allergies: No Known Drug Allergies (Unverified Allergy, Mild, 02/28/18) Past Surgical History Past Surgical Hx: other (Permacath for HD access ) Family History Significant Family History: no pertinent family hx Social History Alcohol Use: none Smoking Status: Former smoker Drug Use: none Exam/Review of Systems Vital Signs Vitals Vital Signs Date Temp Pulse Resp B/P (MAP) Pulse Ox O2 O2 Flow FiO2 Time Delivery Rate 02/28/18 81 20 96 Nasal 2.0 19:59 Cannula 02/28/18 98.2 134/64 19:25 (87) Exam Constitutional: alert, other (lying in bed, no acute distress ) Psych: no complaints Head: normocephalic Eyes: nl conjunctiva ENMT: nl external ears & nose Neck: supple, non-tender Respiratory: clear to auscultation, normal air movement, diminished breath sounds Cardiovascular: regular rate and rhythm, nl pulses Gastrointestinal: soft, non-tender Musculoskeletal: nl extremities to inspection Extremities: normal pulses Neurological: other (generalised weakness, not able to do full neuro exam) Skin: nl turgor Lymph: nl lymph nodes Medications Medications Current Medications Dextrose/Sodium Chloride 1,000 ml @ 75 mls/hr [id number] IV Last administered on 02/28/18at 18:11; Admin Dose 75 MLS/HR; Start 02/28/18 at 04:16 IV Flush (NS 3 ml) 3 ml PER PROTOCOL IV ; Start 02/28/18 at 04:30 Ondansetron HCl (Zofran Inj) 4 mg Q6H PRN IV NAUSEA AND/OR VOMITING; Start 02/28/18 at 04:30 Morphine Sulfate (morphine) 2 mg Q4H PRN IV SEVERE PAIN LEVEL 7-10 Last adm inistered on 02/28/18at 18:21; Admin Dose 2 MG; Start 02/28/18 at 04:30 Albuterol (Ventolin Hfa) 2 puff Q4H PRN INH WHEEZING AND SOB; Start 02/28/18 at 04:30 Amiodarone HCl (Cordarone) 200 mg DAILY PO Last administered on 02/28/18at 09:58; Admin Dose 200 MG; Start 02/28/18 at 09:00 Hydralazine HCl (Apresoline) 25 mg Q6 PO Last administered on 02/28/18at 18:12; Admin Dose 25 MG; Start 02/28/18 at 06:00 Montelukast Sodium (Singulair) 10 mg QHS PO ; Start 02/28/18 at 21:00 Pantoprazole (Protonix Tab) 40 mg DAILY@0600 PO Last administered on 02/28/18at 05:29; Admin Dose 40 MG; Start 02/28/18 at 06:00 Tamsulosin HCl (Flomax) 0.4 mg DAILY@2100 PO ; Start 02/28/18 at 21:00 Arformoterol Tartrate (Brovana (Neb)) 2 ml BID RESP THERAPY HHN Last administered on 02/28/18at 19:57; Admin Dose 2 ML; Start 02/28/18 at 20:00 Piperacillin Sod/ Tazobactam Sod 50 ml @ 100 mls/hr Q8 IVPB Last administered on 02/28/18at 13:40; Admin Dose 100 MLS/HR; Start 02/28/18 at 07:30 Budesonide (Pulmicort (Neb)) 0.5 mg BID RESP THERAPY HHN Last administered on 02/28/18at 19:57; Admin Dose 0.5 MG; Start 02/28/18 at 20:00 Acetaminophen (Tylenol Tab) 650 mg Q6H PRN PO MILD PAIN(1-3)OR ELEVATED TEMP; Start 02/28/18 at 15:00 Insulin Aspart (Novolog Insulin Pen) NOVOLOG *MILD* ALGORI... Q4 SC ; Start 02/28/18 at 21:00 Miscellaneous Information 1 ea NOTE XX ; Start 02/28/18 at 19:30 Glucose (Glutose) 15 gm Q15M PRN PO DECREASED GLUCOSE; Start 02/28/18 at 19:30 Glucose (Glutose) 22.5 gm Q15M PRN PO DECREASED GLUCOSE; Start 02/28/18 at 19:30 Dextrose (D50w Syringe) 25 ml Q15M PRN IV DECREASED GLUCOSE; Start 02/28/18 at 19:30 Dextrose (D50w Syringe) 50 ml Q15M PRN IV DECREASED GLUCOSE; Start 02/28/18 at 19:30 Glucagon (Glucagen) 1 mg Q15M PRN IM DECREASED GLUCOSE; Start 02/28/18 at 19:30 Glucose (Glutose) 15 gm Q15M PRN BUCCAL DECREASED GLUCOSE; Start 02/28/18 at 19:30 KY GONZALEZ MD Feb 28, 2018 20:59
[2018-02-28] MEDS: INSULIN ASPART [NOVOLOG] 3 ML PEN SC SCH (21:00)
[2018-02-28] MEDS: MONTELUKAST 10 MG TAB PO SCH (21:36)
[2018-02-28] MEDS: TAMSULOSIN (SR) 0.4 MG CAP PO SCH (21:36)
[2018-03-01] MEDS: INSULIN ASPART [NOVOLOG] 3 ML PEN SC SCH ×6 (01:00→20:58)
[2018-03-01 02:00] VITALS: BP 111/53; PULSE 89; RESP 18
[2018-03-01] MEDS: ACETAMINOPHEN 325 MG TAB PO PRN ×2 (02:53→11:14)
[2018-03-01] MEDS: PIPER-TAZO 2.25 GM (PMX) 50 ML IVPB SCH (05:10)
[2018-03-01] MEDS: PANTOPRAZOLE (EC) 40 MG TAB PO SCH (05:10)
[2018-03-01] MEDS: DEXTROSE 5%-0.45% NACL 1,000 ML IV SCH ×2 (05:10→06:56)
--- NOTE | 2018-03-01 06:12 | NUR ---
EOSS: PATIENT HAD TEMPERATURE OF 101.6, PATIENT ON IV ATB ZOSYN, AWAITING RESULT FOR STOOL LAB WORKS, HAD BLOOD CX RESULT WITH NO GROWTH ON DAY 1. TYLENOL GIVEN, COOLING MEASURES PROVIDED, MADE AWARE WITH NO NEW ORDERS. RECHECKED T - 98.6. PATIENT REMAINED ON CONTACT ISOLATION, OBSERVED. BS WNL. DENIES PAIN. TURNED & REPOSITIONED EVERY TWO HRS. SKIN REMAINED INTACT. KEPT COMFORTABLE. WILL CONTINUE WITH POC.
[2018-03-01 08:31] VITALS: BP 109/51; PULSE 71; RESP 16
[2018-03-01] MEDS: AMIODARONE 200 MG TAB PO SCH (09:28)
[2018-03-01] MEDS: MEGESTROL (40 MG/ML) 10ML CUP PO SCH ×2 (09:28→20:58)
[2018-03-01] MEDS: ARFORMOTEROL TARTRATE 15MCG/2 ML AMP HHN SCH ×2 (09:48→19:45)
[2018-03-01] MEDS: BUDESONIDE (NEB) 0.5MG/2ML AMP HHN SCH ×2 (09:48→19:45)
--- NOTE | 2018-03-01 10:40 | CONS ---
Date/Time of Note Date/Time of Note DATE: 03/01/18 TIME: 10:40 Assessment/Plan Assessment/Plan Assessment/Plan 1, ESRD on HD TTS schedule at [facility] [facility], missed HD today 2. sepsis due to acute colitis 3. acute pancolitis 4. H/o HTN 5. H/O epilepsy 6. Failure to thrive due to generalised weakness and colitis 7.History of meningioma status post craniotomy -no present issues 8. h/o COPD, H/o BPH, H/o Herpes Esophagitis Plan: D/c IV fluid IV abx for acute colitis, NPO, GI has been consulted on the case will order Hd for Friday with albumin support Megace 400mg pO BID for ape will follow up Result Diagram: 03/01/183 03/01/18422 Results 24hrs Laboratory Tests Test 02/28/18 21:36 03/01/18 01:10 03/01/18 04:23 03/01/18 05:20 Bedside Glucose 151 133 126 White Blood Count 20.7 H Red Blood Count 2.97 L Hemoglobin 8.9 L Hematocrit 27.1 L Mean Corpuscular 91.2 Volume Mean Corpuscular 30.0 Hemoglobin Mean Corpuscular 32.8 Hemoglobin Concent Red Cell 16.0 H Distribution Width Platelet Count 279 Mean Platelet Volume 10.5 H Immature 0.500 H Granulocytes % Neutrophils % 84.6 H Lymphocytes % 8.8 L Monocytes % 5.3 Eosinophils % 0.4 Basophils % 0.4 Nucleated Red Blood 0.0 Cells % Immature 0.110 H Granulocytes # Neutrophils # 17.6 H Lymphocytes # 1.8 Monocytes # 1.1 H Eosinophils # 0.1 Basophils # 0.1 Nucleated Red Blood 0.0 Cells # Sodium Level 130 L Potassium Level 3.8 Chloride Level 95 L Carbon Dioxide Level 15 L Anion Gap 20 H Blood Urea Nitrogen 71 H Creatinine 10.07 H Est Glomerular Filtrat Rate mL/min Glucose Level 127 Calcium Level 7.5 L Phosphorus Level 9.1 H Magnesium Level 1.8 Test 03/01/18 09:25 Bedside Glucose 108 Consultation Date/Type/Reason Admit Date/Time Feb 28, 2018 at 01:31 Initial Consult Date 02/28/18 Type of Consult NEPHROLOGY Requesting Provider: TON POTTER Exam/Review of Systems Vital Signs Vitals Vital Signs Date Temp Pulse Resp B/P (MAP) Pulse Ox O2 O2 Flow FiO2 Time Delivery Rate 03/01/18 66 20 97 Nasal 2.0 09:48 Cannula 03/01/18 97.8 109/51 08:31 (70) Intake and Output 02/28/18 02/28/18 03/01/18 1515:00 23:00 07:00 IntakeIntake Total 360 ml 1010 ml 1050 ml BalanceBalance 360 ml 1010 ml 1050 ml Exam Constitutional: alert, other (lying in bed, no acute distress ) Respiratory: clear to auscultation, normal air movement, diminished breath sounds Cardiovascular: regular rate and rhythm, nl pulses Gastrointestinal: soft, non-tender Musculoskeletal: nl extremities to inspection Extremities: normal pulses Neurological: other (generalised weakness, not able to do full neuro exam) Medications Medications Current Medications Dextrose/Sodium Chloride 1,000 ml @ 75 mls/hr [id number] IV Last administered on 03/01/18at 05:10; Admin Dose 75 MLS/HR; Start 02/28/18 at 04:16 IV Flush (NS 3 ml) 3 ml PER PROTOCOL IV ; Start 02/28/18 at 04:30 Ondansetron HCl (Zofran Inj) 4 mg Q6H PRN IV NAUSEA AND/OR VOMITING; Start 02/28/18 at 04:30 Morphine Sulfate (morphine) 2 mg Q4H PRN IV SEVERE PAIN LEVEL 7-10 Last administered on 02/28/18at 18:21; Admin Dose 2 MG; Start 02/28/18 at 04:30 Albuterol (Ventolin Hfa) 2 puff Q4H PRN INH WHEEZING AND SOB; Start 02/28/18 at 04:30 Amiodarone HCl (Cordarone) 200 mg DAILY PO Last administered on 03/01/18at 09:28; Admin Dose 200 MG; Start 02/28/18 at 09:00 Hydralazine HCl (Apresoline) 25 mg Q6 PO Last administered on 03/01/18at 05:10; Admin Dose 25 MG; Start 02/28/18 at 06:00 Montelukast Sodium (Singulair) 10 mg QHS PO Last administered on 02/28/18at 21:36; Admin Dose 10 MG; Start 02/28/18 at 21:00 Pantoprazole (Protonix Tab) 40 mg DAILY@0600 PO Last administered on 03/01/18 05:10; Admin Dose 40 MG; Start 02/28/18 at 06:00 Tamsulosin HCl (Flomax) 0.4 mg DAILY@2100 PO Last administered on 02/28/18at 21:36; Admin Dose 0.4 MG; Start 02/28/18 at 21:00 Arformoterol Tartrate (Brovana (Neb)) 2 ml BID RESP THERAPY HHN Last administ ered on 03/01/18at 09:48; Admin Dose 2 ML; Start 02/28/18 at 20:00 Piperacillin Sod/ Tazobactam Sod 50 ml @ 100 mls/hr Q8 IVPB Last administered on 03/01/18at 05:10; Admin Dose 100 MLS/HR; Start 02/28/18 at 07:30 Budesonide (Pulmicort (Neb)) 0.5 mg BID RESP THERAPY HHN Last administered on 03/01/18at 09:48; Admin Dose 0.5 MG; Start 02/28/18 at 20:00 Acetaminophen (Tylenol Tab) 650 mg Q6H PRN PO MILD PAIN(1-3)OR ELEVATED TEMP Last administered on 03/01/18at 02:53; Admin Dose 650 MG; Start 02/28/18 at 15:00 Insulin Aspart (Novolog Insulin Pen) NOVOLOG *MILD* ALGORI... Q4 SC ; Start 02/28/18 at 21:00 Miscellaneous Information 1 ea NOTE XX ; Start 02/28/18 at 19:30 Glucose (Glutose) 15 gm Q15M PRN PO DECREASED GLUCOSE; Start 02/28/18 at 19:30 Glucose (Glutose) 22.5 gm Q15M PRN PO DECREASED GLUCOSE; Start 02/28/18 at 19:30 Dextrose (D50w Syringe) 25 ml Q15M PRN IV DECREASED GLUCOSE; Start 02/28/18 at 19:30 Dextrose (D50w Syringe) 50 ml Q15M PRN IV DECREASED GLUCOSE; Start 02/28/18 at 19:30 Glucagon (Glucagen) 1 mg Q15M PRN IM DECREASED GLUCOSE; Start 02/28/18 at 19:30 Glucose (Glutose) 15 gm Q15M PRN BUCCAL DECREASED GLUCOSE; Start 02/28/18 at 19:30 Megestrol Acetate (Megace Susp) 400 mg BID PO Last administered on 03/01/18at 09:28; Admin Dose 400 MG; Start 03/01/18 at 09:00 KY GONZALEZ MD Mar 01, 2018 10:40
[2018-03-01] MEDS ORDERED: ALBUMIN HUMAN 25% 100 ML IV PRN (11:00)
[2018-03-01] MEDS ORDERED: HEPARIN 1000 UNITS/ML 10 ML INJ CATHETER SCH (11:00)
[2018-03-01] MEDS ORDERED: SODIUM CHLORIDE 0.9% 1L BAG IV PRN (11:00)
--- NOTE | 2018-03-01 11:56 | PN ---
Date/Time of Note Date/Time of Note DATE: 03/01/18 TIME: 11:47 Assessment/Plan VTE Prophylaxis Risk score (from Ns)>0 risk: 3 SCD applied (from Ns): Yes Pharmacological prophylaxis: other Lines/Catheters IV Catheter Type (from Nrs): Peripheral IV Urinary Cath still in place: No Assessment/Plan Hospital Course S: Patient complaining still of throat pain. C. difficile test is positive. O: VS - see below PE: Gen: Lying in bed, complaining of some throat pain, otherwise no acute distress Head: Atraumatic. Eyes: Normal Conjunctiva. ENT: Normal External Ears, Nose and Mouth. Neck: Full range of motion. No meningismus. Resp: Clear to auscultation bilaterally. Cardio: Regular rate and rhythm. Abd: Soft, non distended, normal bowel sounds, + diffuse moderate abdominal tenderness, no rigidity/rebound/CVA tenderness Ext: No cyanosis, or edema. Neur: Awake and alert. No focal deficit Assessment/Plan: 82-year-old male with a history of ESRD on HD BPH, epilepsy, anemia,meningioma status post craniotomy , COPD, hypertension, herpes esophagitis, colitis with several days history of abdominal pain and diarrhea found to be septic as evidenced by leukocytosis and tachycardia, secondary to severe pancolitis. # Abdominal pain -secondary to now C. difficile pancolitis, confirmed on CT scan. Patient also came with leukocytosis. Of note patient has a prior history of colitis. -Switched to p.o. vancomycin -We will get speech eval, continue. with IV fluid -Follow-up recommendations from GI consult # ESRD-on dialysis prior to admission -appreciate renal recommendations -Monitor, for dialysis tomorrow #History of meningioma status post craniotomy -no present issues -Continue to monitor for now # COPD -appears stable -Monitor, duo nebs as needed # herpes esophagitis -apparently was diagnosed last admission 2 months ago, treated with acyclovir at that time -Monitor for now #BPH: No present issues -Continue current medication Result Diagram: 03/01/18 0423 03/01/18 0423 Results 24hrs Laboratory Tests Test 02/28/18 21:36 03/01/18 01:10 03/01/18 04:23 03/01/18 05:20 Bedside Glucose 151 133 126 White Blood Count 20.7 H Red Blood Count 2.97 L Hemoglobin 8.9 L Hematocrit 27.1 L Mean Corpuscular 91.2 Volume Mean Corpuscular 30.0 Hemoglobin Mean Corpuscular 32.8 Hemoglobin Concent Red Cell 16.0 H Distribution Width Platelet Count 279 Mean Platelet Volume 10.5 H Immature 0.500 H Granulocytes % Neutrophils % 84.6 H Lymphocytes % 8.8 L Monocytes % 5.3 Eosinophils % 0.4 Basophils % 0.4 Nucleated Red Blood 0.0 Cells % Immature 0.110 H Granulocytes # Neutrophils # 17.6 H Lymphocytes # 1.8 Monocytes # 1.1 H Eosinophils # 0.1 Basophils # 0.1 Nucleated Red Blood 0.0 Cells # Sodium Level 130 L Potassium Level 3.8 Chloride Level 95 L Carbon Dioxide Level 15 L Anion Gap 20 H Blood Urea Nitrogen 71 H Creatinine 10.07 H Est Glomerular Filtrat Rate mL/min Glucose Level 127 Calcium Level 7.5 L Phosphorus Level 9.1 H Magnesium Level 1.8 Test 03/01/18 09:25 Bedside Glucose 108 Exam/Review of Systems Vital Signs Vitals Vital Signs Date Temp Pulse Resp B/P (MAP) Pulse Ox O2 O2 Flow FiO2 Time Delivery Rate 03/01/18 98.3 11:14 03/01/18 66 20 97 Nasal 2.0 09:48 Cannula 03/01/18 109/51 08:31 (70) Intake and Output 02/28/18 02/28/18 03/01/18 1515:00 23:00 07:00 IntakeIntake Total 360 ml 1010 ml 1050 ml BalanceBalance 360 ml 1010 ml 1050 ml Medications Medications Current Medications Dextrose/Sodium Chloride 1,000 ml @ 75 mls/hr [id number] IV Last administered on 03/01/18at 05:10; Admin Dose 75 MLS/HR; Start 02/28/18 at 04:16 IV Flush (NS 3 ml) 3 ml PER PROTOCOL IV ; Start 02/28/18 at 04:30 Ondansetron HCl (Zofran Inj) 4 mg Q6H PRN IV NAUSEA AND/OR VOMITING; Start 02/28/18 at 04:30 Morphine Sulfate (morphine) 2 mg Q4H PRN IV SEVERE PAIN LEVEL 7-10 Last administered on 02/28/18at 18:21; Admin Dose 2 MG; Start 02/28/18 at 04:30 Albuterol (Ventolin Hfa) 2 puff Q4H PRN INH WHEEZING AND SOB; Start 02/28/18 at 04:30 Amiodarone HCl (Cordarone) 200 mg DAILY PO Last administered on 03/01/18 09:28; Admin Dose 200 MG; Start 02/28/18 at 09:00 Hydralazine HCl (Apresoline) 25 mg Q6 PO Last administered on 03/01/18 11:15; Admin Dose 25 MG; Start 02/28/18 at 06:00 Montelukast Sodium (Singulair) 10 mg QHS PO Last administered on 02/28/18 21:36; Admin Dose 10 MG; Start 02/28/18 at 21:00 Pantoprazole (Protonix Tab) 40 mg DAILY@0600 PO Last administered on 03/01/18 05:10; Admin Dose 40 MG; Start 02/28/18 at 06:00 Tamsulosin HCl (Flomax) 0.4 mg DAILY@2100 PO Last administered on 02/28/18 21:36; Admin Dose 0.4 MG; Start 02/28/18 at 21:00 Arformoterol Tartrate (Brovana (Neb)) 2 ml BID RESP THERAPY HHN Last administered on 03/01/18 09:48; Admin Dose 2 ML; Start 02/28/18 at 20:00 Piperacillin Sod/ Tazobactam Sod 50 ml @ 100 mls/hr Q8 IVPB Last administered on 03/01/18 05:10; Admin Dose 100 MLS/HR; Start 02/28/18 at 07:30 Budesonide (Pulmicort (Neb)) 0.5 mg BID RESP THERAPY HHN Last administered on 03/01/18 09:48; Admin Dose 0.5 MG; Start 02/28/18 at 20:00 Acetaminophen (Tylenol Tab) 650 mg Q6H PRN PO MILD PAIN(1-3)OR ELEVATED TEMP Last administered on 03/01/18 11:14; Admin Dose 650 MG; Start 02/28/18 at 15:00 Insulin Aspart (Novolog Insulin Pen) NOVOLOG *MILD* ALGORI... Q4 SC ; Start 02/28/18 at 21:00 Miscellaneous Information 1 ea NOTE XX ; Start 02/28/18 at 19:30 Glucose (Glutose) 15 gm Q15M PRN PO DECREASED GLUCOSE; Start 02/28/18 at 19:30 Glucose (Glutose) 22.5 gm Q15M PRN PO DECREASED GLUCOSE; Start 02/28/18 at 19:30 Dextrose (D50w Syringe) 25 ml Q15M PRN IV DECREASED GLUCOSE; Start 02/28/18 at 19:30 Dextrose (D50w Syringe) 50 ml Q15M PRN IV DECREASED GLUCOSE; Start 02/28/18 at 19:30 Glucagon (Glucagen) 1 mg Q15M PRN IM DECREASED GLUCOSE; Start 02/28/18 at 19:30 Glucose (Glutose) 15 gm Q15M PRN BUCCAL DECREASED GLUCOSE; Start 02/28/18 at 19:30 Megestrol Acetate (Megace Susp) 400 mg BID PO Last administered on 03/01/18at 09:28; Admin Dose 400 MG; Start 03/01/18 at 09:00 Heparin Sodium (Porcine) (Heparin (1000 Units/ml)) 4,000 unit AFTER DIALYSIS CATHETER ; Start 03/01/18 at 11:00 Albumin Human 100 ml @ 100 mls/hr WITH DIALYSIS PRN IV SBP less than 90 mm hg ; Start 03/01/18 at 11:00 Sodium Chloride (NS) -To prime the dialy... DIRECTED FOR HD PRN IV SBP less than 90 mm hg ; Start 03/01/18 at 11:00 TON POTTER Mar 01, 2018 11:56
[2018-03-01] MEDS: CEPASTAT LOZENGE MT PRN ×2 (12:33→18:03)
[2018-03-01] MEDS: VANCOMYCIN HCL 250 MG/5ML POSYG PO SCH ×2 (12:34→18:08)
--- NOTE | 2018-03-01 13:39 | PN ---
Date/Time of Note Date/Time of Note DATE: 03/01/18 TIME: 13:36 Assessment/Plan VTE Prophylaxis Risk score (from Nsg)>0 risk: 3 SCD applied (from Nsg): Yes Pharmacological prophylaxis: other (scds) Lines/Catheters IV Catheter Type (from Nrs): Peripheral IV Urinary Cath still in place: No Assessment/Plan Hospital Course Summary Assessment and Plan: Assessment: Pancolitis- CDIFF + Leukocytosis with low grade fevers Right pleural effusion- decreased in size ESRD on HD HTN BPH Epilepsy COPD History of herpes simplex esophagitis Plan: ABX- changed to PO Vancomycin Monitor labs Start clear liquid diet Patient seen in collaboration with Dr. Johnson Subjective: Course reviewed with nursing staff Patient interviewed and examined All labs, imaging and other results reviewed The patient more alert today, able to make needs known. Pt denies abd pain, however with examination/palpation he does express pain No c/o n/v. WBC down since admission. BM x3 today Will maintain close observation PHYSICAL EXAMINATION: GENERAL: Elderly chronically ill appearing SKIN:Dialysis catheter EYES: Pupils equal reactive to light, no discharge. EARS/NOSE AND THROAT: Ears normal, nose normal NECK: Supple CHEST: Inspection within normal limits. CARDIOVASCULAR: Heart: Regular rate and rhythm RESPIRATORY: Lungs clear to auscultation GASTROINTESTINAL AND LIVER: Abdomen: Soft, generalized tenderness, non- distended, no guarding, no rebound tenderness, normoactive bowel sounds. Rectal: Deferred. GENITOURINARY:Not examined EXTREMITIES: No cyanosis, clubbing or edema. Result Diagram: 03/01/18 0423 03/01/18 0423 Results 24hrs Laboratory Tests Test 02/28/18 21:36 03/01/18 01:10 03/01/18 04:23 03/01/18 05:20 Bedside Glucose 151 133 126 White Blood Count 20.7 H Red Blood Count 2.97 L Hemoglobin 8.9 L Hematocrit 27.1 L Mean Corpuscular 91.2 Volume Mean Corpuscular 30.0 Hemoglobin Mean Corpuscular 32.8 Hemoglobin Concent Red Cell 16.0 H Distribution Width Platelet Count 279 Mean Platelet Volume 10.5 H Immature 0.500 H Granulocytes % Neutrophils % 84.6 H Lymphocytes % 8.8 L Monocytes % 5.3 Eosinophils % 0.4 Basophils % 0.4 Nucleated Red Blood 0.0 Cells % Immature 0.110 H Granulocytes # Neutrophils # 17.6 H Lymphocytes # 1.8 Monocytes # 1.1 H Eosinophils # 0.1 Basophils # 0.1 Nucleated Red Blood 0.0 Cells # Sodium Level 130 L Potassium Level 3.8 Chloride Level 95 L Carbon Dioxide Level 15 L Anion Gap 20 H Blood Urea Nitrogen 71 H Creatinine 10.07 H Est Glomerular Filtrat Rate mL/min Glucose Level 127 Calcium Level 7.5 L Phosphorus Level 9.1 H Magnesium Level 1.8 Test 03/01/18 09:25 Bedside Glucose 108 Exam/Review of Systems Vital Signs Vitals Vital Signs Date Temp Pulse Resp B/P (MAP) Pulse Ox O2 O2 Flow FiO2 Time Delivery Rate 03/01/18 98.3 11:14 03/01/18 66 20 97 Nasal 2.0 09:48 Cannula 03/01/18 109/51 08:31 (70) Intake and Output 02/28/18 02/28/18 03/01/18 1515:00 23:00 07:00 IntakeIntake Total 360 ml 1010 ml 1050 ml BalanceBalance 360 ml 1010 ml 1050 ml Medications Medications Current Medications Dextrose/Sodium Chloride 1,000 ml @ 75 mls/hr [id number] IV Last administered on 03/01/18at 05:10; Admin Dose 75 MLS/HR; Start 02/28/18 at 04:16 IV Flush (NS 3 ml) 3 ml PER PROTOCOL IV ; Start 02/28/18 at 04:30 Ondansetron HCl (Zofran Inj) 4 mg Q6H PRN IV NAUSEA AND/OR VOMITING; Start 02/28/18 at 04:30 Morphine Sulfate (morphine) 2 mg Q4H PRN IV SEVERE PAIN LEVEL 7-10 Last administered on 02/28/18at 18:21; Admin Dose 2 MG; Start 02/28/18 at 04:30 Albuterol (Ventolin Hfa) 2 puff Q4H PRN INH WHEEZING AND SOB; Start 02/28/18 at 04:30 Amiodarone HCl (Cordarone) 200 mg DAILY PO Last administered on 03/01/18at 09:28; Admin Dose 200 MG; Start 02/28/18 at 09:00 Hydralazine HCl (Apresoline) 25 mg Q6 PO Last administered on 03/01/18at 11:15; Admin Dose 25 MG; Start 02/28/18 at 06:00 Montelukast Sodium (Singulair) 10 mg QHS PO Last administered on 02/28/18at 21:36; Admin Dose 10 MG; Start 02/28/18 at 21:00 Pantoprazole (Protonix Tab) 40 mg DAILY@0600 PO Last administered on 03/01/18at 05:10; Admin Dose 40 MG; Start 02/28/18 at 06:00 Tamsulosin HCl (Flomax) 0.4 mg DAILY@2100 PO Last administered on 02/28/18at 21:36; Admin Dose 0.4 MG; Start 02/28/18 at 21:00 Arformoterol Tartrate (Brovana (Neb)) 2 ml BID RESP THERAPY HHN Last administered on 03/01/18at 09:48; Admin Dose 2 ML; Start 02/28/18 at 20:00 Budesonide (Pulmicort (Neb)) 0.5 mg BID RESP THERAPY HHN Last administered on 03/01/18at 09:48; Admin Dose 0.5 MG; Start 02/28/18 at 20:00 Acetaminophen (Tylenol Tab) 650 mg Q6H PRN PO MILD PAIN(1-3)OR ELEVATED TEMP Last administered on 03/01/18at 11:14; Admin Dose 650 MG; Start 02/28/18 at 15:00 Insulin Aspart (Novolog Insulin Pen) NOVOLOG *MILD* ALGORI... Q4 SC ; Start 02/28/18 at 21:00 Miscellaneous Information 1 ea NOTE XX ; Start 02/28/18 at 19:30 Glucose (Glutose) 15 gm Q15M PRN PO DECREASED GLUCOSE; Start 02/28/18 at 19:30 Glucose (Glutose) 22.5 gm Q15M PRN PO DECREASED GLUCOSE; Start 02/28/18 at 19:30 Dextrose (D50w Syringe) 25 ml Q15M PRN IV DECREASED GLUCOSE; Start 02/28/18 at 19:30 Dextrose (D50w Syringe) 50 ml Q15M PRN IV DECREASED GLUCOSE; Start 02/28/18 at 19:30 Glucagon (Glucagen) 1 mg Q15M PRN IM DECREASED GLUCOSE; Start 02/28/18 at 19:30 Glucose (Glutose) 15 gm Q15M PRN BUCCAL DECREASED GLUCOSE; Start 02/28/18 at 19:30 Megestrol Acetate (Megace Susp) 400 mg BID PO Last administered on 03/01/18at 09:28; Admin Dose 400 MG; Start 03/01/18 at 09:00 Heparin Sodium (Porcine) (Heparin (1000 Units/ml)) 4,000 unit AFTER DIALYSIS CATHETER ; Start 03/01/18 at 11:00 Albumin Human 100 ml @ 100 mls/hr WITH DIALYSIS PRN IV SBP less than 90 mm hg ; Start 03/01/18 at 11:00 Sodium Chloride (NS) -To prime the dialy... DIRECTED FOR HD PRN IV SBP less than 90 mm hg ; Start 03/01/18 at 11:00 Vancomycin HCl (Vancomycin Oral Syringe) 250 mg Q6 PO Last administered on 03/01/18at 12:34; Admin Dose 250 MG; Start 03/01/18 at 12:00 Phenol (Cepastat Lozenge) 1 lozenge Q1H PRN MT SORE THROAT Last administered on 03/01/18at 12:33; Admin Dose 1 LOZENGE; Start 03/01/18 at 12:00 BEVERLEY TIDWELL Mar 01, 2018 13:38
[2018-03-01 13:47] VITALS: BP 104/51; PULSE 66; RESP 16
--- NOTE | 2018-03-01 17:11 | NUR ---
Dialysis scheduling: Dialysis scheduled for MON AM between 8-10am w/ Bernard. Confirmation #: [id number] from Annabelle
--- NOTE | 2018-03-01 19:55 | NUR ---
EOSS: Pt was lethargic today. Pt responds to verbal and physical stimulation. Pt answers questions. Pt is A&Ox3, in AM pt had brief episode of confusion regarding his birthday but was able to recall and state his birthday. Pt is unaware of the date. Family members report he was more awake yesterday but state that his behavior is consistent with his baseline. Dr. Bunch made aware of patient's lethargy. Ammonia level ordered, result: 19. Pt was afebrile. One episode of hypotension occurred, at 1400, BP was in 80's systolic but resolved without intervention to 110's systolic. Pt was seen by RT, pt coughed during shift and was able to produce sputum. Pt had 1 large loose bowel movement during shift. C diff results came back positive. Pt refused to get out of bed when offered the option to sit in the chair. Pt reported abdominal pain w/ dinner (chicken broth). Pt also began coughing, possibly related to new swallowing difficulties. Aspiration precautions initated. Hemodialysis scheduled for tomorrow AM, consent signed and Hep B lab ordered. Confirmation number in nursing note. Nasal cannula protection placed over ears. Sacrococcyx border replaced and socks placed to protect from skin breakdown. Q2 turns in place. Pt complained of posterior neck pain and throat pain throughout shift. No sensitivity to light. Dr. Bunch aware. Lozenges ordered for throat pain. Pt resting comfortably in bed w/ bed alarm on and call light within reach.
[2018-03-01 20:19] VITALS: BP 135/65; PULSE 73; RESP 18
[2018-03-01] MEDS: TAMSULOSIN (SR) 0.4 MG CAP PO SCH (20:58)
[2018-03-01] MEDS: MONTELUKAST 10 MG TAB PO SCH (20:58)
[2018-03-02] VITALS (16 sets, daily range): BP systolic 107–167; BP diastolic 55–70; PULSE 67–90; RESP 18–20
[2018-03-02] MEDS: VANCOMYCIN HCL 250 MG/5ML POSYG PO SCH ×5 (00:55→23:46)
[2018-03-02] MEDS: INSULIN ASPART [NOVOLOG] 3 ML PEN SC SCH ×6 (01:00→21:00)
[2018-03-02] MEDS: PANTOPRAZOLE (EC) 40 MG TAB PO SCH (05:42)
--- NOTE | 2018-03-02 06:49 | NUR ---
EOSS; PATIENT SLEEPS MOST OF THE TIME. EASILY AWAKENS, FOLLOW COMMAND. VITALS BEEN MONITORED ORDERED. BLOOD SUGAR BEEN MONITORED ORDERED. LOOSE BM STILL NOTED. C-DIFF PRECAUTION OBSERVED. PATIENT BEEN ASSISTED FOR CLEAR LIQUID DIET. ASPIRATION PRECAUTION OBSERVED. PATIENT BEEN REPOSITIONED Q2 HRS FOR COMFORT. SKIN MONITORING RENDERED. HOURLY ROUNDING RENDERED. FALL PRECAUTION OBSERVED. CALL LIGHT WITHIN REACH.
[2018-03-02] MEDS: BUDESONIDE (NEB) 0.5MG/2ML AMP HHN SCH ×2 (09:00→19:28)
[2018-03-02] MEDS: MEGESTROL (40 MG/ML) 10ML CUP PO SCH (10:09)
[2018-03-02] MEDS: ACETAMINOPHEN 325 MG TAB PO PRN ×2 (10:09→19:25)
--- NOTE | 2018-03-02 10:10 | PN ---
Date/Time of Note Date/Time of Note DATE: 03/02/18 TIME: 10:07 Assessment/Plan VTE Prophylaxis Risk score (from Ns)>0 risk: 7 SCD applied (from Ns): Yes Pharmacological prophylaxis: NA/contraindicated Pharm contraindication: low risk/ambulating Lines/Catheters IV Catheter Type (from Nrs): Saline Lock Urinary Cath still in place: No Assessment/Plan Assessment/Plan 82-year-old male with a history of ESRD on HD BPH, epilepsy, anemia,meningioma status post craniotomy , COPD, hypertension, herpes esophagitis, colitis with several days history of abdominal pain and diarrhea found to be septic as evidenced by leukocytosis and tachycardia, secondary to severe pancolitis. # C diff colitis - Patient has presented with diarrhea and abd pain in the past, this is first time C diff was positive - Cont course of p.o. vancomycin -We will get speech eval - Advance diet as tolerated - Symptoms now improving, I do not anticipate colonoscopy will be necessary but will defer to GI. # ESRD-on dialysis prior to admission -appreciate renal recommendations -Cont scheduled dialysis. #History of meningioma status post craniotomy -no present issues -Continue to monitor for now # COPD -appears stable -Monitor, duo nebs as needed # herpes esophagitis -apparently was diagnosed last admission 2 months ago, treated with acyclovir at that time -Monitor for now #BPH: No present issues -Continue current medication Result Diagram: 03/02/183 03/02/18442 Results 24hrs Laboratory Tests Test 03/01/18 13:56 03/01/18 14:42 03/01/18 17:51 03/01/18 20:55 Bedside Glucose 158 95 94 Ammonia 19 Test 03/02/18 01:05 03/02/18 04:43 03/02/18 05:38 03/02/18 09:49 Bedside Glucose 120 87 114 White Blood Count 18.6 H Red Blood Count 3.11 L Hemoglobin 9.1 L Hematocrit 28.4 L Mean Corpuscular 91.3 Volume Mean Corpuscular 29.3 Hemoglobin Mean Corpuscular 32.0 Hemoglobin Concent Red Cell 16.0 H Distribution Width Platelet Count 286 Mean Platelet Volume 10.5 H Immature 0.700 H Granulocytes % Neutrophils % 83.5 H Lymphocytes % 6.1 L Monocytes % 8.0 Eosinophils % 1.3 Basophils % 0.4 Nucleated Red Blood 0.0 Cells % Immature 0.130 H Granulocytes # Neutrophils # 15.5 H Lymphocytes # 1.1 Monocytes # 1.5 H Eosinophils # 0.3 Basophils # 0.1 Nucleated Red Blood 0.0 Cells # Sodium Level 133 L Potassium Level 4.1 Chloride Level 100 Carbon Dioxide Level 14 L Anion Gap 19 H Blood Urea Nitrogen 80 H Creatinine 10.63 H Est Glomerular Filtrat Rate mL/min Glucose Level 97 Calcium Level 7.6 L Phosphorus Level 11.5 #H Magnesium Level 1.9 Subjective 24 Hr Interval Summary Free Text/Dictation No acute overnight events. Patient says diarrhea is improving. Tolerating clear liquids; no nausea, mild abdominal pain. Complains of nonspecific neck and L hip pain. Getting dialysis today. Exam/Review of Systems Vital Signs Vitals Vital Signs Date Temp Pulse Resp B/P (MAP) Pulse Ox O2 O2 Flow FiO2 Time Delivery Rate 03/02/18 98.5 75 18 118/56 98 03:23 (76) 03/02/18 3.0 00:55 03/01/18 Nasal 19:46 Cannula Intake and Output 03/01/18 03/01/18 03/02/18 1515:00 23:00 07:00 IntakeIntake Total 600 ml 360 ml 200 ml BalanceBalance 600 ml 360 ml 200 ml Exam Gen: Well developed elderly man lying in bed, otherwise no acute distress Head: Atraumatic. Eyes: Normal Conjunctiva. ENT: Normal External Ears, Nose and Mouth. Neck: Full range of motion. No meningismus. Resp: Clear to auscultation bilaterally. Cardio: Regular rate and rhythm. Abd: Soft, non distended, normal bowel sounds, mild abdominal tenderness, no rigidity/rebound/CVA tenderness Ext: No cyanosis, or edema. Medications Medications Current Medications IV Flush (NS 3 ml) 3 ml PER PROTOCOL IV ; Start 02/28/18 at 04:30 Ondansetron HCl (Zofran Inj) 4 mg Q6H PRN IV NAUSEA AND/OR VOMITING; Start 02/28/18 at 04:30 Morphine Sulfate (morphine) 2 mg Q4H PRN IV SEVERE PAIN LEVEL 7-10 Last administered on 02/28/18at 18:21; Admin Dose 2 MG; Start 02/28/18 at 04:30 Albuterol (Ventolin Hfa) 2 puff Q4H PRN INH WHEEZING AND SOB; Start 02/28/18 at 04:30 Amiodarone HCl (Cordarone) 200 mg DAILY PO Last administered on 03/01/18at 09:28; Admin Dose 200 MG; Start 02/28/18 at 09:00 Hydralazine HCl (Apresoline) 25 mg Q6 PO Last administered on 03/02/18 05:46; Admin Dose 25 MG; Start 02/28/18 at 06:00 Montelukast Sodium (Singulair) 10 mg QHS PO Last administered on 03/01/18 20:58; Admin Dose 10 MG; Start 02/28/18 at 21:00 Pantoprazole (Protonix Tab) 40 mg DAILY@0600 PO Last administered on 03/02/18 05:42; Admin Dose 40 MG; Start 02/28/18 at 06:00 Tamsulosin HCl (Flomax) 0.4 mg DAILY@2100 PO Last administered on 03/01/18 20:58; Admin Dose 0.4 MG; Start 02/28/18 at 21:00 Arformoterol Tartrate (Brovana (Neb)) 2 ml BID RESP THERAPY HHN Last administered on 03/01/18 19:45; Admin Dose 2 ML; Start 02/28/18 at 20:00 Budesonide (Pulmicort (Neb)) 0.5 mg BID RESP THERAPY HHN Last administered on 03/01/18at 19:45; Admin Dose 0.5 MG; Start 02/28/18 at 20:00 Acetaminophen (Tylenol Tab) 650 mg Q6H PRN PO MILD PAIN(1-3)OR ELEVATED TEMP Last administered on 03/01/18at 11:14; Admin Dose 650 MG; Start 02/28/18 at 15:00 Insulin Aspart (Novolog Insulin Pen) NOVOLOG *MILD* ALGORI... Q4 SC Last administered on 03/01/18at 14:05; Admin Dose 1 UNIT; Start 02/28/18 at 21:00 Miscellaneous Information 1 ea NOTE XX ; Start 02/28/18 at 19:30 Glucose (Glutose) 15 gm Q15M PRN PO DECREASED GLUCOSE; Start 02/28/18 at 19:30 Glucose (Glutose) 22.5 gm Q15M PRN PO DECREASED GLUCOSE; Start 02/28/18 at 19:30 Dextrose (D50w Syringe) 25 ml Q15M PRN IV DECREASED GLUCOSE; Start 02/28/18 at 19:30 Dextrose (D50w Syringe) 50 ml Q15M PRN IV DECREASED GLUCOSE; Start 02/28/18 at 19:30 Glucagon (Glucagen) 1 mg Q15M PRN IM DECREASED GLUCOSE; Start 02/28/18 at 19:30 Glucose (Glutose) 15 gm Q15M PRN BUCCAL DECREASED GLUCOSE; Start 02/28/18 at 19:30 Megestrol Acetate (Megace Susp) 400 mg BID PO Last administered on 03/01/18at 20:58; Admin Dose 400 MG; Start 03/01/18 at 09:00 Heparin Sodium (Porcine) (Heparin (1000 Units/ml)) 4,000 unit AFTER DIALYSIS CATHETER ; Start 03/01/18 at 11:00 Albumin Human 100 ml @ 100 mls/hr WITH DIALYSIS PRN IV SBP less than 90 mm hg ; Start 03/01/18 at 11:00 Sodium Chloride (NS) -To prime the dialy... DIRECTED FOR HD PRN IV SBP less than 90 mm hg ; Start 03/01/18 at 11:00 Vancomycin HCl (Vancomycin Oral Syringe) 250 mg Q6 PO Last administered on 03/02/18at 05:40; Admin Dose 250 MG; Start 03/01/18 at 12:00 Phenol (Cepastat Lozenge) 1 lozenge Q1H PRN MT SORE THROAT Last administered on 03/01/18at 18:03; Admin Dose 1 LOZENGE; Start 03/01/18 at 12:00 JOVANNA CARR MD Mar 02, 2018 10:10
[2018-03-02] MEDS: ARFORMOTEROL TARTRATE 15MCG/2 ML AMP HHN SCH ×2 (10:25→19:28)
--- NOTE | 2018-03-02 11:30 | NUR ---
Transfer of care: Report given to Eveline MO for continuation of care. Pt in stable condition, 1.5L removed with dialysis. Pt reporting headache. This was endorsed to Eveline. Bed alarm on. Call light within reach.
[2018-03-02] MEDS: AMIODARONE 200 MG TAB PO SCH (11:32)
--- NOTE | 2018-03-02 11:49 | PN ---
Date/Time of Note Date/Time of Note DATE: 03/02/18 TIME: 11:45 Assessment/Plan VTE Prophylaxis Risk score (from Ns)>0 risk: 9 SCD applied (from Ns): Yes Pharmacological prophylaxis: other (scds) Lines/Catheters IV Catheter Type (from Nrs): permacath Urinary Cath still in place: No Assessment/Plan Hospital Course Summary Assessment and Plan: Assessment: Pancolitis- CDIFF + Leukocytosis with fevers- improving Right pleural effusion- decreased in size ESRD on HD HTN BPH Epilepsy COPD History of herpes simplex esophagitis Plan: Continue current ABX regimen Monitor labs- WBC trending down Advance diet as tolerated Continue supportive care No further recommendations, GI will sign off but will be available upon reconsult as needed Patient seen in collaboration with Dr. Johnson Subjective: Course reviewed with nursing staff Patient interviewed and examined All labs, imaging and other results reviewed Pt c/o less abd pain, now c/o headaches, x2 mucoid bm last night, WBC trending down Maintain close observation, No c/o n/v , diet has been advanced. PHYSICAL EXAMINATION: GENERAL: Elderly chronically ill appearing SKIN:Dialysis catheter EYES: Pupils equal reactive to light, no discharge. EARS/NOSE AND THROAT: Ears normal, nose normal NECK: Supple CHEST: Inspection within normal limits. CARDIOVASCULAR: Heart: Regular rate and rhythm RESPIRATORY: Lungs clear to auscultation GASTROINTESTINAL AND LIVER: Abdomen: Soft, generalized tenderness- improved, non-distended, no guarding, no rebound tenderness, normoactive bowel sounds. Rectal: Deferred. GENITOURINARY:Not examined EXTREMITIES: No cyanosis, clubbing or edema. Result Diagram: 03/02/18 0443 03/02/18 0443 Results 24hrs Laboratory Tests Test 03/01/18 13:56 03/01/18 14:42 03/01/18 17:51 03/01/18 20:55 Bedside Glucose 158 95 94 Ammonia 19 Test 03/02/18 01:05 03/02/18 04:43 03/02/18 05:38 03/02/18 09:49 Bedside Glucose 120 87 114 White Blood Count 18.6 H Red Blood Count 3.11 L Hemoglobin 9.1 L Hematocrit 28.4 L Mean Corpuscular 91.3 Volume Mean Corpuscular 29.3 Hemoglobin Mean Corpuscular 32.0 Hemoglobin Concent Red Cell 16.0 H Distribution Width Platelet Count 286 Mean Platelet Volume 10.5 H Immature 0.700 H Granulocytes % Neutrophils % 83.5 H Lymphocytes % 6.1 L Monocytes % 8.0 Eosinophils % 1.3 Basophils % 0.4 Nucleated Red Blood 0.0 Cells % Immature 0.130 H Granulocytes # Neutrophils # 15.5 H Lymphocytes # 1.1 Monocytes # 1.5 H Eosinophils # 0.3 Basophils # 0.1 Nucleated Red Blood 0.0 Cells # Sodium Level 133 L Potassium Level 4.1 Chloride Level 100 Carbon Dioxide Level 14 L Anion Gap 19 H Blood Urea Nitrogen 80 H Creatinine 10.63 H Est Glomerular Filtrat Rate mL/min Glucose Level 97 Calcium Level 7.6 L Phosphorus Level 11.5 #H Magnesium Level 1.9 Exam/Review of Systems Vital Signs Vitals Vital Signs Date Temp Pulse Resp B/P (MAP) Pulse Ox O2 O2 Flow FiO2 Time Delivery Rate 03/02/18 82 11:00 03/02/18 18 135/65 99 Nasal 3.0 10:53 (88) Cannula 03/02/18 98.5 03:23 Intake and Output 03/01/18 03/01/18 03/02/18 1414:59 22:59 06:59 IntakeIntake Total 600 ml 360 ml 200 ml BalanceBalance 600 ml 360 ml 200 ml Medications Medications Current Medications IV Flush (NS 3 ml) 3 ml PER PROTOCOL IV ; Start 02/28/18 at 04:30 Ondansetron HCl (Zofran Inj) 4 mg Q6H PRN IV NAUSEA AND/OR VOMITING; Start 02/28/18 at 04:30 Morphine Sulfate (morphine) 2 mg Q4H PRN IV SEVERE PAIN LEVEL 7-10 Last administered on 02/28/18at 18:21; Admin Dose 2 MG; Start 02/28/18 at 04:30 Albuterol (Ventolin Hfa) 2 puff Q4H PRN INH WHEEZING AND SOB; Start 02/28/18 at 04:30 Amiodarone HCl (Cordarone) 200 mg DAILY PO Last administered on 03/02/18at 11:32; Admin Dose 200 MG; Start 02/28/18 at 09:00 Hydralazine HCl (Apresoline) 25 mg Q6 PO Last administered on 03/02/18at 11:32; Admin Dose 25 MG; Start 02/28/18 at 06:00 Montelukast Sodium (Singulair) 10 mg QHS PO Last administered on 03/01/18at 20:58; Admin Dose 10 MG; Start 02/28/18 at 21:00 Pantoprazole (Protonix Tab) 40 mg DAILY@0600 PO Last administered on 03/02/18at 05:42; Admin Dose 40 MG; Start 02/28/18 at 06:00 Tamsulosin HCl (Flomax) 0.4 mg DAILY@2100 PO Last administered on 03/01/18at 20:58; Admin Dose 0.4 MG; Start 02/28/18 at 21:00 Arformoterol Tartrate (Brovana (Neb)) 2 ml BID RESP THERAPY HHN Last administered on 03/02/18at 10:25; Admin Dose 2 ML; Start 02/28/18 at 20:00 Budesonide (Pulmicort (Neb)) 0.5 mg BID RESP THERAPY HHN Last administered on 03/02/18at 09:00; Admin Dose 0.5 MG; Start 02/28/18 at 20:00 Acetaminophen (Tylenol Tab) 650 mg Q6H PRN PO MILD PAIN(1-3)OR ELEVATED TEMP Last administered on 03/02/18at 10:09; Admin Dose 650 MG; Start 02/28/18 at 15:00 Insulin Aspart (Novolog Insulin Pen) NOVOLOG *MILD* ALGORI... Q4 SC Last administered on 03/01/18at 14:05; Admin Dose 1 UNIT; Start 02/28/18 at 21:00 Miscellaneous Information 1 ea NOTE XX ; Start 02/28/18 at 19:30 Glucose (Glutose) 15 gm Q15M PRN PO DECREASED GLUCOSE; Start 02/28/18 at 19:30 Glucose (Glutose) 22.5 gm Q15M PRN PO DECREASED GLUCOSE; Start 02/28/18 at 19:30 Dextrose (D50w Syringe) 25 ml Q15M PRN IV DECREASED GLUCOSE; Start 02/28/18 at 19:30 Dextrose (D50w Syringe) 50 ml Q15M PRN IV DECREASED GLUCOSE; Start 02/28/18 at 19:30 Glucagon (Glucagen) 1 mg Q15M PRN IM DECREASED GLUCOSE; Start 02/28/18 at 19:30 Glucose (Glutose) 15 gm Q15M PRN BUCCAL DECREASED GLUCOSE; Start 02/28/18 at 19:30 Megestrol Acetate (Megace Susp) 400 mg BID PO Last administered on 03/02/18at 10:09; Admin Dose 400 MG; Start 03/01/18 at 09:00 Heparin Sodium (Porcine) (Heparin (1000 Units/ml)) 4,000 unit AFTER DIALYSIS CATHETER ; Start 03/01/18 at 11:00 Albumin Human 100 ml @ 100 mls/hr WITH DIALYSIS PRN IV SBP less than 90 mm hg ; Start 03/01/18 at 11:00 Sodium Chloride (NS) -To prime the dialy... DIRECTED FOR HD PRN IV SBP less than 90 mm hg ; Start 03/01/18 at 11:00 Vancomycin HCl (Vancomycin Oral Syringe) 250 mg Q6 PO Last administered on 03/02/18at 05:40; Admin Dose 250 MG; Start 03/01/18 at 12:00 Phenol (Cepastat Lozenge) 1 lozenge Q1H PRN MT SORE THROAT Last administered on 03/01/18at 18:03; Admin Dose 1 LOZENGE; Start 03/01/18 at 12:00 BEVERLEY TIDWELL Mar 02, 2018 11:49
--- NOTE | 2018-03-02 11:55 | CONS ---
Date/Time of Note Date/Time of Note DATE: 03/02/18 TIME: 11:55 Assessment/Plan Assessment/Plan Assessment/Plan 1, ESRD on HD TTS schedule at [facility] [facility] 2. sepsis due to acute colitis 3. acute pancolitis- Cl difficle positive 4. H/o HTN 5. H/O epilepsy 6. Failure to thrive due to generalised weakness and colitis 7.History of meningioma status post craniotomy -no present issues 8. h/o COPD, H/o BPH, H/o Herpes Esophagitis Plan: WBC 18.6- on IV abx for CL diffilcle dodson colitis advance diet as tolerated S/p HD today 400 cc removed due to low bP, will keep pt on MWF schedule Megace 400mg pO daily for apetite will follow up Result Diagram: 03/02/183 03/02/18442 Results 24hrs Laboratory Tests Test 03/01/18 13:56 03/01/18 14:42 03/01/18 17:51 03/01/18 20:55 Bedside Glucose 158 95 94 Ammonia 19 Test 03/02/18 01:05 03/02/18 04:43 03/02/18 05:38 03/02/18 09:49 Bedside Glucose 120 87 114 White Blood Count 18.6 H Red Blood Count 3.11 L Hemoglobin 9.1 L Hematocrit 28.4 L Mean Corpuscular 91.3 Volume Mean Corpuscular 29.3 Hemoglobin Mean Corpuscular 32.0 Hemoglobin Concent Red Cell 16.0 H Distribution Width Platelet Count 286 Mean Platelet Volume 10.5 H Immature 0.700 H Granulocytes % Neutrophils % 83.5 H Lymphocytes % 6.1 L Monocytes % 8.0 Eosinophils % 1.3 Basophils % 0.4 Nucleated Red Blood 0.0 Cells % Immature 0.130 H Granulocytes # Neutrophils # 15.5 H Lymphocytes # 1.1 Monocytes # 1.5 H Eosinophils # 0.3 Basophils # 0.1 Nucleated Red Blood 0.0 Cells # Sodium Level 133 L Potassium Level 4.1 Chloride Level 100 Carbon Dioxide Level 14 L Anion Gap 19 H Blood Urea Nitrogen 80 H Creatinine 10.63 H Est Glomerular Filtrat Rate mL/min Glucose Level 97 Calcium Level 7.6 L Phosphorus Level 11.5 #H Magnesium Level 1.9 Consultation Date/Type/Reason Admit Date/Time Feb 28, 2018 at 01:31 Initial Consult Date 02/28/18 Type of Consult NEPHROLOGY Requesting Provider: TON POTTER 24 HR Interval Summary Free Text/Dictation BUN/Cr 80/10.6- plan for HD today pt is sleeping Exam/Review of Systems Vital Signs Vitals Vital Signs Date Temp Pulse Resp B/P (MAP) Pulse Ox O2 O2 Flow FiO2 Time Delivery Rate 03/02/18 82 11:00 03/02/18 18 135/65 99 Nasal 3.0 10:53 (88) Cannula 03/02/18 98.5 03:23 Intake and Output 03/01/18 03/01/18 03/02/18 1515:00 23:00 07:00 IntakeIntake Total 600 ml 360 ml 200 ml BalanceBalance 600 ml 360 ml 200 ml Exam Constitutional: alert, other (lying in bed, no acute distress ) Respiratory: clear to auscultation, normal air movement, diminished breath sounds Cardiovascular: regular rate and rhythm, nl pulses Gastrointestinal: soft, non-tender Musculoskeletal: nl extremities to inspection Extremities: normal pulses Neurological: non focal Medications Medications Current Medications IV Flush (NS 3 ml) 3 ml PER PROTOCOL IV ; Start 02/28/18 at 04:30 Ondansetron HCl (Zofran Inj) 4 mg Q6H PRN IV NAUSEA AND/OR VOMITING; Start 02/28/18 at 04:30 Morphine Sulfate (morphine) 2 mg Q4H PRN IV SEVERE PAIN LEVEL 7-10 Last administered on 02/28/18at 18:21; Admin Dose 2 MG; Start 02/28/18 at 04:30 Albuterol (Ventolin Hfa) 2 puff Q4H PRN INH WHEEZING AND SOB; Start 02/28/18 at 04:30 Amiodarone HCl (Cordarone) 200 mg DAILY PO Last administered on 03/02/18at 11:32; Admin Dose 200 MG; Start 02/28/18 at 09:00 Hydralazine HCl (Apresoline) 25 mg Q6 PO Last administered on 03/02/18at 11:32; Admin Dose 25 MG; Start 02/28/18 at 06:00 Montelukast Sodium (Singulair) 10 mg QHS PO Last administered on 03/01/18at 20:58; Admin Dose 10 MG; Start 02/28/18 at 21:00 Pantoprazole (Protonix Tab) 40 mg DAILY@0600 PO Last administered on 03/02/18 05:42; Admin Dose 40 MG; Start 02/28/18 at 06:00 Tamsulosin HCl (Flomax) 0.4 mg DAILY@2100 PO Last administered on 03/01/18at 20:58; Admin Dose 0.4 MG; Start 02/28/18 at 21:00 Arformoterol Tartrate (Brovana (Neb)) 2 ml BID RESP THERAPY HHN Last administered on 03/02/18at 10:25; Admin Dose 2 ML; Start 02/28/18 at 20:00 Budesonide (Pulmicort (Neb)) 0.5 mg BID RESP THERAPY HHN Last administered on 03/02/18at 09:00; Admin Dose 0.5 MG; Start 02/28/18 at 20:00 Acetaminophen (Tylenol Tab) 650 mg Q6H PRN PO MILD PAIN(1-3)OR ELEVATED TEMP Last administered on 03/02/18at 10:09; Admin Dose 650 MG; Start 02/28/18 at 15:00 Insulin Aspart (Novolog Insulin Pen) NOVOLOG *MILD* ALGORI... Q4 SC Last administered on 03/01/18 14:05; Admin Dose 1 UNIT; Start 02/28/18 at 21:00 Miscellaneous Information 1 ea NOTE XX ; Start 02/28/18 at 19:30 Glucose (Glutose) 15 gm Q15M PRN PO DECREASED GLUCOSE; Start 02/28/18 at 19:30 Glucose (Glutose) 22.5 gm Q15M PRN PO DECREASED GLUCOSE; Start 02/28/18 at 19:30 Dextrose (D50w Syringe) 25 ml Q15M PRN IV DECREASED GLUCOSE; Start 02/28/18 at 19:30 Dextrose (D50w Syringe) 50 ml Q15M PRN IV DECREASED GLUCOSE; Start 02/28/18 at 19:30 Glucagon (Glucagen) 1 mg Q15M PRN IM DECREASED GLUCOSE; Start 02/28/18 at 19:30 Glucose (Glutose) 15 gm Q15M PRN BUCCAL DECREASED GLUCOSE; Start 02/28/18 at 19:30 Megestrol Acetate (Megace Susp) 400 mg BID PO Last administered on 03/02/18at 10:09; Admin Dose 400 MG; Start 03/01/18 at 09:00 Heparin Sodium (Porcine) (Heparin (1000 Units/ml)) 4,000 unit AFTER DIALYSIS CATHETER ; Start 03/01/18 at 11:00 Albumin Human 100 ml @ 100 mls/hr WITH DIALYSIS PRN IV SBP less than 90 mm hg ; Start 03/01/18 at 11:00 Sodium Chloride (NS) -To prime the dialy... DIRECTED FOR HD PRN IV SBP less than 90 mm hg ; Start 03/01/18 at 11:00 Vancomycin HCl (Vancomycin Oral Syringe) 250 mg Q6 PO Last administered on 03/02/18at 05:40; Admin Dose 250 MG; Start 03/01/18 at 12:00 Phenol (Cepastat Lozenge) 1 lozenge Q1H PRN MT SORE THROAT Last administered on 03/01/18at 18:03; Admin Dose 1 LOZENGE; Start 03/01/18 at 12:00 KY GONZALEZ MD Mar 02, 2018 11:55
--- NOTE | 2018-03-02 12:25 | NUR ---
PT evaluation note: S: HPI per MD note: The patient is a 82-year-old male, presenting to the ER because abdominal pain diarrhea for 4 days, denies hematochezia, denies any recent traveling. He does not have any fever, chills, neck pain, chest pain, dyspnea, and the abdominal pain is diffuse, no aggravating/relieving factor, denies dysuria. He does not smoke, drink O: MD order received for PT consult. Pt had dialysis in AM, C/O neck and BLE pain and tightness, family member at site, pt agreeable to get up with PT, cleared by RN in charge Eveline to proceed. PREC: HIGH fall risk, hx of epilepsy, COPD, dialysis pt, contact isolation for C-diff PLOF: Patient lives with family member in single story house, no entry step, was independent with ADL and ambulation using FWW. CLOF: Patient need mod assist with bed mobility from partially elevated HOB, mod/max x 2 with stand pivot transfers. unable to fully stand during transfers, fatigued easily, generally weak, follows command, HIGH fall risk. A: Patient can benefit from SNF placement VERSUS HHPT with / care - pending progress, will update close to DC. P: Cont PT and progress as able.
--- NOTE | 2018-03-02 13:00 | NUR ---
OT EVAL: HPI per MD note: The patient is a 82-year-old male, presenting to the ER because abdominal pain diarrhea for 4 days, denies hematochezia, denies any recent traveling. He does not have any fever, chills, neck pain, chest pain, dyspnea, and the abdominal pain is diffuse, no aggravating/relieving factor, denies dysuria. He does not smoke, drink PREC: HIGH fall risk, hx of epilepsy, COPD, dialysis pt, contact isolation for C-diff PLOF: Patient lives with family member in single story house, no entry step. Pt has caregiver for supervision all day and family member supervision at night. Pt performs ADL's and ambulates using FWW with supervision. CLOF: RN cleared pt for skilled OT eval. Pt received supine in bed with caregiver at bedside. CHEPE Mosquera provided Swazi translation. Pt is AOx3 (person, place and situation) and stated 5/10 pain in bilateral legs. Pt required Min A to perform supine->sit at EOB. Seated at EOB pt required Min A to sit upright due to weakness. Pt demonstrated STS and chair transfer with Mod A x1 using FWW. Pt required vc for proper positioning. Once seated on chair at bedside pt required total A for donning and doffing socks and completed h/g tasks with supervision. Pt returned to bed with Mod A. Pt left supine in bed with all needs met. RN notified. Pt will benefit from skilled OT tx 1x daily for 3-5x week to increase strength, endurance, safety awareness, balance and independence with self care. Recommend d/c Home with 24/7 care once medically cleared by MD.
--- NOTE | 2018-03-02 19:29 | NUR ---
END OF SHIFT NOTE PT RESTING IN BED. HAD LOOSE STOOL X 1 TODAY. ENTERIC ISOLATION REINFORCED. SKIN STILL INTACT. VSS, NO CHANGE IN CONDITION AT THIS TIME. SAFETY MAINTAINED THROUGHOUT SHIFT. BED IN LOW POSITION, CALL LIGHT IN REACH. HOURLY ROUNDS PERFORMED. WILL CONTINUE MONITORING AND WILL ENDORSE POC TO NOC RN.
[2018-03-02] MEDS: MONTELUKAST 10 MG TAB PO SCH (21:52)
[2018-03-02] MEDS: TAMSULOSIN (SR) 0.4 MG CAP PO SCH (21:52)
[2018-03-03] MEDS: ACETAMINOPHEN 325 MG TAB PO PRN (01:06)
[2018-03-03] MEDS: INSULIN ASPART [NOVOLOG] 3 ML PEN SC SCH ×3 (01:15→08:51)
[2018-03-03 02:33] VITALS: BP 128/61; PULSE 78; RESP 18
[2018-03-03] MEDS: VANCOMYCIN HCL 250 MG/5ML POSYG PO SCH ×2 (05:22→12:31)
[2018-03-03] MEDS: PANTOPRAZOLE (EC) 40 MG TAB PO SCH (05:22)
--- NOTE | 2018-03-03 06:45 | NUR ---
EOSS: PATIENT BEEN MEDICATED WITH TYLENOL PO X2 DURING THE SHIFT. PATIENT DID NOT SLEEP MOST PART OF THE NIGHT. BLOOD SUGAR BEEN MONITORED ORDERED. ISOLATION PRECAUTION FROM C-DIFF OBSERVED. HOURLY ROUNDING RENDERED. FALL PRECAUTION OBSERVED. REPOSITIONED Q2 HRS WITH PILLOW SUPPORT. CALL LIGHT WITHIN REACH.
[2018-03-03 07:30] VITALS: BP 155/72; PULSE 77; RESP 18
[2018-03-03] MEDS: AMIODARONE 200 MG TAB PO SCH (08:10)
[2018-03-03] MEDS: BUDESONIDE (NEB) 0.5MG/2ML AMP HHN SCH (08:50)
[2018-03-03] MEDS: ARFORMOTEROL TARTRATE 15MCG/2 ML AMP HHN SCH (08:51)
[2018-03-03] MEDS ORDERED: MEGESTROL (40 MG/ML) 10ML CUP PO SCH (09:00)
[2018-03-03] MEDS ORDERED: Vancomycin Oral Syringe PO (09:36)
--- NOTE | 2018-03-03 09:39 | PDOCDIS ---
Discharge Instructions DIAGNOSIS Discharge Diagnosis Clostridoides difficile colitis CONDITION Malkc7Sm Patient Condition: [id number] Fair HOME CARE INSTRUCTIONS: [id number] Diet Instructions: [id number] Regular ACTIVITY: [id number] Activity Restrictions: [id number] Slowly Increase Activity FOLLOW UP/APPOINTMENTS Follow-up Plan 1. Take all medication as prescribed. 2. Finish a 10 day course of oral vancomycin (03/02-03/11/2018) 3. Make a clinic appointment in 1-2 weeks with your primary care doctor. 4. If your diarrhea worsens and you cannot keep food or liquids down, return to the emergency room. JOVANNA CARR MD Mar 03, 2018 09:39
--- NOTE | 2018-03-03 10:35 | NUR ---
PT NOTE Therapy day number 2 Subjective Current complaint of pain Pain Scale NUMERIC Pain Intensity 8 (0-10) Patient Stated Goal for Pain Relief 0 (0-10) Pain Level Comment (B) KNEES R>L Transfer Training Start Time 10:35 Supine to Sit Supervised Transfer Sit to Stand Ability Minimum Assist Bed Mobility Sit to Supine Supervised Additional Mobility Comments 2PA for safety, transfers w/AD w/VCs for proper hand/foot & sequence Transfer Training End Time 10:50 Total Transfer Training Time 15 min (8-127) Gait Training Start Time 10:50 Gait Assist Levels Contact Guard Assist Assistive Devices Front Wheel Walker Ambulation Distance 5 feet Additional Gait Comments 5' x 2 CGA, 2PA for safet, intermittent reciprocal/step to gait, flex postu Gait Training End Time 11:14 Total Gait Training Treatment Time 24 min (8-127) Static Sitting Balance Good Dynamic Sitting Balance Fair Standing Static Balance Fair Dynamic Standing Balance Poor plus Additional Balance Assessments Comments FWWW Safety Judgement Fair Activity Tolerance Fair Post Treatment Pain Intensity 8 0-10 Variance Documentation SEEE BELOW AND PT NOTE Total Treament Time 39 min (8-127) Total Minutes 39 Total Units 3 PT Technical Record Comment PT NOTE S: Pt stated, "My knees hurt, but more so the right one." Pt speaks Irish. Agreeable for PT and cleared per CHEPE Dempsey: Received pt in semi-fowlers, alert. Noted pt was soiled therefore NEEDLE MAKER was informed and assisted pt w/hygiene cleaning. Afterwards pt performed AROM thera ex, see above for exercises, 2 sets x 10 per exercise. Bed mobility w/HOB elevated and using BR Supervised, 2PA for safety. Applied gait belt at EOB. STS to FWW w/VCs/TCs for proper hand/foot placement and sequence, Eddie/CGA 2PA for safety. Gait training performed inside room w/FWW CGA 5' x 2, 2PA for safety. Noted intermittent reciprocal/step to pattern, decreased step length/stride, slow zachery, flexed posture, head/vision downward, and no LOB/buckling. Pt required VCs/TCs to correct posture, lift head/vision upward, increase step length/stride/zachery, and maintain distance from AD for safe ambulation. Pt reported increased R knee pain and requested to go BTB. Positioned pt for comfort, call light/phone within reach, bed alarmed, SCD's reapplied, and all needs met. CHEPE Patricia. informed of pt's status. A: Fair tolerance to tx. Pt showed no signs of distress or SOB during or after tx. No c/o dizziness or nausea throughout tx. Bed mobility and transfers improved compared to previous tx. Limited gait due to pain. Pt is clear to BSC. P: Continue POC and progress as tolerated.
--- NOTE | 2018-03-03 10:55 | NUR ---
CM NOTES: MET WITH THE PT AT THE BEDSIDE BUT PT WAS NOT ABLE TO SPEAK. THIS CM T/C AND S/W DAUGHTER, DOYLE GUZMAN [phone] ABOUT DC PLAN TO HOME. PER THE DAUGHTER, DC PLAN IS ONLY TO HOME AND SHE WANTS TO CONTINUE USING PREVIOUS HOME HEALTH [facility] [phone] AND CONTINUED PREVIOUS HD AT [facility] [phone], FRIDAY, AND SAT AT 2:00PM. PREVIOUS OUTPT TRANSPORTATION FROM HOME TO HD IS [facility]. PT ALSO USED A FWW AT HOME. THIS CM T/C AND S/W [facility] [phone] ABOUT THE DC AND FAXED HER THE HHPT ORDER. THIS CM ALSO T/C AND S/W [facility] [phone], [facility] AND FAXED HER ALL THE UPDATE INCLUDING HD RUNS AND CXR. PT WILL BE DC HOME TODAY PER MD ORDER. THERE ARE NO OTHER DC PLANNING NEEDS FOR THIS PT. MITCH STEVENSON CM [id number] Addendum: 03/03/18 at 1100 by MITCH CERDA CM Amended: Links added.
--- NOTE | 2018-03-03 12:12 | CONS ---
Assessment/Plan Assessment/Plan Assessment/Plan 1, ESRD on HD TTS schedule at [facility] [place] [facility] 2. sepsis due to acute colitis 3. acute pancolitis- Cl difficle positive 4. H/o HTN 5. H/O epilepsy 6. Failure to thrive due to generalised weakness and colitis 7.History of meningioma status post craniotomy -no present issues 8. h/o COPD, H/o BPH, H/o Herpes Esophagitis Plan: WBC 18.6- on IV abx for CL diffilcle dodson colitis advance diet as tolerated S/p HD today 400 cc removed due to low bP, will keep pt on MWF schedule ,next HD tomorrow at HD center Megace 400mg pO daily for apetite will follow up Result Diagram: 03/03/18 0852 03/03/18 0852 Results 24hrs Laboratory Tests Test 03/02/18 13:14 03/02/18 17:55 03/02/18 21:50 03/03/18 01:09 Bedside Glucose 112 107 132 151 Test 03/03/18 05:17 03/03/18 08:49 03/03/18 08:52 Bedside Glucose 107 111 White Blood Count 12.6 #H Red Blood Count 3.26 L Hemoglobin 9.5 L Hematocrit 29.3 L Mean Corpuscular 89.9 Volume Mean Corpuscular 29.1 Hemoglobin Mean Corpuscular 32.4 Hemoglobin Concent Red Cell 15.6 H Distribution Width Platelet Count 297 Mean Platelet Volume 10.4 Immature 0.600 H Granulocytes % Neutrophils % 72.7 Lymphocytes % 12.1 L Monocytes % 12.4 H Eosinophils % 1.8 Basophils % 0.4 Nucleated Red Blood 0.0 Cells % Immature 0.070 H Granulocytes # Neutrophils # 9.1 H Lymphocytes # 1.5 Monocytes # 1.6 H Eosinophils # 0.2 Basophils # 0.1 Nucleated Red Blood 0.0 Cells # Sodium Level 134 L Potassium Level 3.2 L Chloride Level 97 Carbon Dioxide Level 23 Anion Gap 14 H Blood Urea Nitrogen 51 H Creatinine 7.21 #H Est Glomerular Filtrat Rate mL/min Glucose Level 99 Calcium Level 7.8 L Phosphorus Level 5.8 #H Magnesium Level 2.0 Total Bilirubin 0.0 L Direct Bilirubin 0.00 Indirect Bilirubin 0.0 Aspartate Amino 14 L Transf (AST/SGOT) Alanine 13 Aminotransferase (AL T/SGPT) Alkaline Phosphatase 192 H Total Protein 6.5 Albumin 2.9 L Globulin 3.60 H Albumin/Globulin 0.80 Ratio Consultation Date/Type/Reason Admit Date/Time Feb 28, 2018 at 01:31 Initial Consult Date 02/28/18 Type of Consult NEPHROLOGY Requesting Provider: TON POTTER Exam/Review of Systems Vital Signs Vitals Vital Signs Date Temp Pulse Resp B/P (MAP) Pulse Ox O2 O2 Flow FiO2 Time Delivery Rate 03/03/18 96 2.0 08:51 03/03/18 77 22 Nasal 08:51 Cannula 03/03/18 98.5 155/72 07:30 (99) 03/02/18 21 19:29 Intake and Output 03/02/18 03/02/18 03/03/18 1515:00 23:00 07:00 IntakeIntake Total 220 ml OutputOutput Total 400 ml BalanceBalance -400 ml 220 ml Exam Constitutional: alert, other (lying in bed, no acute distress ) Respiratory: clear to auscultation, normal air movement, diminished breath sounds Cardiovascular: regular rate and rhythm, nl pulses Gastrointestinal: soft, non-tender Musculoskeletal: nl extremities to inspection Extremities: normal pulses Neurological: non focal Medications Medications Current Medications IV Flush (NS 3 ml) 3 ml PER PROTOCOL IV ; Start 02/28/18 at 04:30 Ondansetron HCl (Zofran Inj) 4 mg Q6H PRN IV NAUSEA AND/OR VOMITING; Start 02/28/18 at 04:30 Morphine Sulfate (morphine) 2 mg Q4H PRN IV SEVERE PAIN LEVEL 7-10 Last administered on 02/28/18at 18:21; Admin Dose 2 MG; Start 02/28/18 at 04:30 Albuterol (Ventolin Hfa) 2 puff Q4H PRN INH WHEEZING AND SOB; Start 02/28/18 at 04:30 Amiodarone HCl (Cordarone) 200 mg DAILY PO Last administered on 03/03/18at 08:10; Admin Dose 200 MG; Start 02/28/18 at 09:00 Hydralazine HCl (Apresoline) 25 mg Q6 PO Last administered on 03/03/18at 05:22; Admin Dose 25 MG; Start 02/28/18 at 06:00 Montelukast Sodium (Singulair) 10 mg QHS PO Last administered on 03/02/18at 21:52; Admin Dose 10 MG; Start 02/28/18 at 21:00 Pantoprazole (Protonix Tab) 40 mg DAILY@0600 PO Last administered on 03/03/18at 05:22; Admin Dose 40 MG; Start 02/28/18 at 06:00 Tamsulosin HCl (Flomax) 0.4 mg DAILY@2100 PO Last administered on 03/02/18at 21:52; Admin Dose 0.4 MG; Start 02/28/18 at 21:00 Arformoterol Tartrate (Brovana (Neb)) 2 ml BID RESP THERAPY HHN Last administered on 03/03/18 08:51; Admin Dose 2 ML; Start 02/28/18 at 20:00 Budesonide (Pulmicort (Neb)) 0.5 mg BID RESP THERAPY HHN Last administered on 03/03/18at 08:50; Admin Dose 0.5 MG; Start 02/28/18 at 20:00 Acetaminophen (Tylenol Tab) 650 mg Q6H PRN PO MILD PAIN(1-3)OR ELEVATED TEMP Last administered on 03/03/18at 01:06; Admin Dose 650 MG; Start 02/28/18 at 15:00 Insulin Aspart (Novolog Insulin Pen) NOVOLOG *MILD* ALGORI... Q4 SC Last administered on 03/03/18at 01:15; Admin Dose 1 UNIT; Start 02/28/18 at 21:00 Miscellaneous Information 1 ea NOTE XX ; Start 02/28/18 at 19:30 Glucose (Glutose) 15 gm Q15M PRN PO DECREASED GLUCOSE; Start 02/28/18 at 19:30 Glucose (Glutose) 22.5 gm Q15M PRN PO DECREASED GLUCOSE; Start 02/28/18 at 19:30 Dextrose (D50w Syringe) 25 ml Q15M PRN IV DECREASED GLUCOSE; Start 02/28/18 at 19:30 Dextrose (D50w Syringe) 50 ml Q15M PRN IV DECREASED GLUCOSE; Start 02/28/18 at 19:30 Glucagon (Glucagen) 1 mg Q15M PRN IM DECREASED GLUCOSE; Start 02/28/18 at 19:30 Glucose (Glutose) 15 gm Q15M PRN BUCCAL DECREASED GLUCOSE; Start 02/28/18 at 19:30 Heparin Sodium (Porcine) (Heparin (1000 Units/ml)) 4,000 unit AFTER DIALYSIS CATHETER ; Start 03/01/18 at 11:00 Albumin Human 100 ml @ 100 mls/hr WITH DIALYSIS PRN IV SBP less than 90 mm hg ; Start 03/01/18 at 11:00 Sodium Chloride (NS) -To prime the dialy... DIRECTED FOR HD PRN IV SBP less than 90 mm hg ; Start 03/01/18 at 11:00 Vancomycin HCl (Vancomycin Oral Syringe) 250 mg Q6 PO Last administered on 03/03/18at 05:22; Admin Dose 250 MG; Start 03/01/18 at 12:00 Phenol (Cepastat Lozenge) 1 lozenge Q1H PRN MT SORE THROAT Last administered on 03/01/18at 18:03; Admin Dose 1 LOZENGE; Start 03/01/18 at 12:00 Megestrol Acetate (Megace Susp) 400 mg DAILY PO Last administered on 03/03/18at 08:09; Admin Dose 400 MG; Start 03/03/18 at 09:00 Date/Time of Note Date/Time of Note DATE: 03/03/18 TIME: 12:12 KY GONZALEZ MD Mar 03, 2018 12:12
--- NOTE | 2018-03-03 13:00 | NUR ---
DISCHARGE: PATIENT D/CD FROM ROOM 428 AT 1300. PATIENT GIVEN D/CD INSTRUCTIONS, PAPERWORK AND PRESCRIPTION. PATIENT HAS X1 PRESCRIPTION FOR PO VANCOMYCIN. VSS UPON D/C. PATIENT HAD DIALYSIS LAST YESTERDAY, SO TOMORROW WOULD BE NEXT DIALYSIS, PATIENTS DAUGHTER AWARE AND FAMILIAR WITH SCHEDULE. PATIENT D/CD VIA WHEELCHAIR WITH [facility] AND PATIENTS DAUGHTER TO BRING HIM HOME, PATIENT LIVES WITH DAUGHTER. [facility] HAS HOME HEALTH AND HOME PHYSICAL THERAPY SET UP BY [facility] MANAGER. PATIENT ALERT AND IN NO VISIBLE DISTRESS
--- NOTE | 2018-03-03 13:40 | DS ---
Date/Time of Note Date/Time of Note DATE: 03/03/18 TIME: 13:38 Discharge Summary Admission/Discharge Info Admit Date/Time Feb 28, 2018 at 01:31 Discharge Date/Time Mar 03, 2018 at 13:05 Discharge Diagnosis Clostridoides difficile colitis Patient Condition: Good Consults Gastroenterology Hx of Present Illness This is an 82-year-old male with a history of ESRD on HD diabetes mellitus, BPH, epilepsy, anemia, meningioma status post craniotomy, COPD, hypertension, herpes esophagitis, colitis who presented to ER complaining of abdominal pain and diarrhea of several days duration. CT abdomen/pelvis shows severe pancolitis. WBC almost 24,000. Patient was admitted here about 3 months ago for abdominal pain. At that time he was also found to have colitis. During hospitalization he also had GI bleed for which he underwent EGD and colonoscopy was a finding of herpes esophagitis and colitis. Patient was also initiated with dialysis during last hospitalization. Hospital Course The patient was admitted with dehydration from diarrhea. Required resuscitation with IV fluids. Also required MWF inpatient dialysis. Stool cultures grew out C difficile. He was started on oral vancomycin. After multiple hospitalizations this appears to be his first episode of C diff. Soon after started vanco the diarrhea resolved. He will go back home to finish a 10 day course with his daughter, who is a home health nurse. Home Meds Active Scripts [Vancomycin Oral Syringe] 50 MG/ML SOLN No Conflict Check, 125 MG PO Q6 for 9 Days, #4500 MG Prov:JOVANNA CARR MD 03/03/18 Hydralazine Hcl* (Hydralazine Hcl*) 25 Mg Tab, 25 MG PO Q6 for 30 Days, #120 TAB Prov:ALEXANDRO ANDERS 12/20/17 Amiodarone Hcl* (Amiodarone Hcl*) 200 Mg Tablet, 200 MG PO DAILY for 30 Days, #30 TAB Prov:ALEXANDRO ANDERS 12/20/17 Acyclovir* (Acyclovir*) 400 Mg Tablet, 400 MG PO TID for 14 Days, #42 TAB Prov:ALEXANDRO ANDERS 12/20/17 Pantoprazole* (Pantoprazole*) 40 Mg Tablet.dr, 40 MG PO DAILY for 30 Days, #60 TAB 1 Refill Prov:ALEXANDRO ANDERS 12/20/17 Montelukast Sodium* (Singulair*) 10 Mg Tablet, 10 MG PO QHS, #30 TAB Prov:PB SAMAYOA V. [employer] 04/16/17 Albuterol Sulfate* (Proair HFA*) 8.5 Gm Hfa.aer.ad, 2 PUFF INH Q4H PRN for WHEEZING AND SOB, #1 INHALER Prov:PB SAMAYOA V. [employer] 04/16/17 Reported Medications Budesonide-Formoterol Fumarate* (Symbicort*) 160-4.5 Hfa.aer.ad, 1 PUFF INHALATION DAILY, #1 EACH 01/23/17 Tamsulosin Hcl* (Tamsulosin Hcl*) 0.4 Mg Cap.er.24h, 0.4 MG PO DAILY, CAP 08/17/14 Discontinued Reported Medications Ergocalciferol (Vitamin D2) (VITAMIN D2) 50,000 Unit Capsule, 06975 UNIT PO Q7D, CAP 01/23/17 Levetiracetam* (Keppra*) 500 Mg Tablet, 500 MG PO BID, TAB 01/29/14 Discontinued Scripts Sucralfate* (Carafate*) 1 Gm/10 Ml Susp, 1 GM PO Q6 for 14 Days, #400 ML Prov:ALEXANDRO ANDERS 12/20/17 Mesalamine (Delzicol) 400 Mg Cap.drtab., 800 MG PO TID for 30 Days, #90 Prov:ALEXANDRO ANDERS 12/20/17 Nifedipine (Procardia Xl) 90 Mg Tab.er.24, 90 MG PO DAILY for 30 Days, #30 TAB Prov:ALEXANDRO ANDERS 12/20/17 Metronidazole* (Flagyl*) 500 Mg Tablet, 500 MG PO Q8 for 14 Days, #42 TAB Prov:ALEXANDRO ANDERS 12/20/17 Metoprolol Tartrate* (Lopressor*) 50 Mg Tab, 75 MG PO BID, #60 TAB Prov:PB SAMAYOA V. [employer] 04/16/17 Follow-up Plan 1. Take all medication as prescribed. 2. Finish a 10 day course of oral vancomycin (03/02-03/11/2018) 3. Make a clinic appointment in 1-2 weeks with your primary care doctor. 4. If your diarrhea worsens and you cannot keep food or liquids down, return to the emergency room. Primary Care Provider Francisco Yusuf MD Time spent on discharge: > 30 minutes Pending Labs Laboratory Tests Test 03/02/18 17:55 03/02/18 21:50 03/03/18 01:09 03/03/18 05:17 Bedside 107 132 151 107 Glucose mg/dL (70-220) mg/dL (70-220) mg/dL (70-220) mg/dL (70-220) Test 03/03/18 08:49 03/03/18 08:52 Bedside 111 Glucose mg/dL (70-220) White Blood 12.6 Count 10^3/ul (4.8-1 0.8) Red Blood 3.26 Count 10^6/ul (4.70- 6.10) Hemoglobin 9.5 g/dl (14.0-18. 0) Hematocrit 29.3 % (42.0-52.0) Mean 89.9 Corpuscular fl (82.0-101.0 Volume ) Mean 29.1 Corpuscular pg (29.0-33.0) Hemoglobin Mean 32.4 Corpuscular g/dl (32.0-37. Hemoglobin Conc 0) ent Red Cell 15.6 Distribution % (11.5-14.5) Width Platelet Count 297 10^3/UL (140-4 15) Mean Platelet 10.4 Volume fl (7.4-10.4) Immature 0.600 Granulocytes % % (0.001-0.429 ) Neutrophils % 72.7 % (39.0-77.0) Lymphocytes % 12.1 % (15.0-51.0) Monocytes % 12.4 % (0.0-11.0) Eosinophils % 1.8 % (0.0-7.0) Basophils % 0.4 % (0.0-2.0) Nucleated Red 0.0 Blood Cells % /100WBC (0.0-0 .0) Immature 0.070 Granulocytes # 10^3/ul (0.0-0 .031) Neutrophils # 9.1 10^3/ul (1.6-7 .5) Lymphocytes # 1.5 10^3/ul (0.8-2 .9) Monocytes # 1.6 10^3/ul (0.3-0 .9) Eosinophils # 0.2 10^3/ul (0.0-0 .5) Basophils # 0.1 10^3/ul (0.0-0 .1) Nucleated Red 0.0 Blood Cells # 10^3/ul (0.0-0 .0) Sodium Level 134 mmol/L (135-14 4) Potassium 3.2 Level mmol/L (3.5-5. 1) Chloride Level 97 mmol/L (97-110 ) Carbon Dioxide 23 Level mmol/L (21-31) Anion Gap 14 (5-13) Blood Urea 51 Nitrogen mg/dl (7-20) Creatinine 7.21 mg/dl (0.61-1. 24) Est Glomerular mL/min (>60) Filtrat Rate mL/min Glucose Level 99 mg/dl (70-220) Calcium Level 7.8 mg/dl (8.4-10. 2) Phosphorus 5.8 Level mg/dl (2.5-4.9 ) Magnesium 2.0 Level mg/dl (1.7-2.5 ) Total 0.0 Bilirubin mg/dl (0.2-1.3 ) Direct 0.00 Bilirubin mg/dl (0.00-0. 20) Indirect 0.0 Bilirubin mg/dl (0-1.1) Aspartate Amino 14 Transf (AST/SGO IU/L (15-46) T) Alanine 13 Aminotransferas IU/L (13-69) e (ALT/SGPT) Alkaline 192 Phosphatase IU/L (42-121) Total Protein 6.5 g/dl (6.1-8.1) Albumin 2.9 g/dl (3.3-4.9) Globulin 3.60 g/dl (1.3-3.2) Albumin/Globuli 0.80 n Ratio JOVANNA CARR MD Mar 03, 2018 13:40
== END 2018-03-03 13:05 | disposition home health service (06) | DRG 871 ==
LOC: E/R 19:41 → MS1 02-28 01:31
PROVIDERS: ADMIT Internal Medicine; ATTEND Internal Medicine
PROC: 5A1D70Z Performance of Urinary Filtration, Intermittent, Less than 6 Hours Per Day (ICD-10-PCS; principal; 2018-03-02)
DX: A41.9 Sepsis, unspecified organism (principal); N18.6 End stage renal disease; A04.72 Enterocolitis due to Clostridium difficile, not specified as recurrent; I12.0 Hypertensive chronic kidney disease with stage 5 chronic kidney disease or end stage renal disease; E11.22 Type 2 diabetes mellitus with diabetic chronic kidney disease; G40.909 Epilepsy, unspecified, not intractable, without status epilepticus; J44.9 Chronic obstructive pulmonary disease, unspecified; N40.0 Benign prostatic hyperplasia without lower urinary tract symptoms; R62.7 Adult failure to thrive; Z68.24 Body mass index [BMI] 24.0-24.9, adult; Z99.2 Dependence on renal dialysis; Z87.891 Personal history of nicotine dependence
CPT/HCPCS: 36415; 71045; 74176; 80048; 80053; 82140; 82270; 82962; 83605; 83735; 84100; 84484; 85025; 85610; 85730; 86674; 86706; 87040; 87045; 87075; 87177; 87340; 90935; 93005; 94640; 94664; 97116; 97161; 97167; 97530; A4310; J1815; J2270; J2543; J7042

== ENCOUNTER 2018-05-29 00:39 | Emergency (ER) | payer MEDICARE, OTHER ==
[~2018-05-29] VITALS: Wt 71.3 kg
[~2018-05-29 00:39] MED LIST changes: -ASA400 PO; -CARAS PO; -ERGO500013 PO; -LEVE-5 PO; -METO-429 PO; -METR500T PO; -NIFE90TA PO; +Vancomycin Oral Syringe PO
--- NOTE | 2018-05-29 01:26 | ERD ---
ER Documentation Chief Complaint Chief Complaint bilateral knee pain HPI The patient is a 82-year-old male, presenting to the ER because chronic bilateral knee pain, worse for 1 day, denies any trauma. He does not have any fever, chills, neck pain, chest pain, dyspnea, and the abdominal pain is diffuse, no aggravating/relieving factor, denies dysuria. He does not smoke, drink Past medical history: Hypertension, BPH, epilepsy, COPD, hypertension, gastritis, esophagitis, history of atrial flutter, chronic kidney disease on hemodialysis Friday and Friday, dementia, history of right pleural effusion Past surgical history: Craniotomy for meningioma, recent colonoscopy and EGD on December 15, 2017 ROS All systems reviewed and are negative except as per history of present illness. Medications Home Meds Active Scripts Hydrocodone/Acetaminophen ([place] 5-325 Tablet) 1 Each Tablet, 1 TAB PO Q6H PRN for PAIN, #7 TAB Prov:SHELBY RENEE MD 05/29/18 Hydralazine Hcl* (Hydralazine Hcl*) 25 Mg Tab, 25 MG PO Q6 for 30 Days, #120 TAB Prov:ALEXANDRO ANDERS 12/20/17 Pantoprazole* (Pantoprazole*) 40 Mg Tablet.dr, 40 MG PO DAILY for 30 Days, #60 TAB 1 Refill Prov:ALEXANDRO ANDERS 12/20/17 Montelukast Sodium* (Singulair*) 10 Mg Tablet, 10 MG PO QHS, #30 TAB Prov:PB SAMAYOA V. [employer] 04/16/17 Albuterol Sulfate* (Proair HFA*) 8.5 Gm Hfa.aer.ad, 2 PUFF INH Q4H PRN for WHEEZING AND SOB, #1 INHALER Prov:SAMAYOABRADENA V. [employer] FINISHER 04/16/17 Reported Medications Insulin Glargine* (Lantus*) 100 Unit/Ml Soln, 10 UNIT SC QHS, #1 VIAL 05/29/18 Budesonide-Formoterol Fumarate* (Symbicort*) 160-4.5 Hfa.aer.ad, 1 PUFF INHALATION DAILY, #1 EACH 01/23/17 Tamsulosin Hcl* (Tamsulosin Hcl*) 0.4 Mg Cap.er.24h, 0.4 MG PO DAILY, CAP 08/17/14 Discontinued Scripts [Vancomycin Oral Syringe] 50 MG/ML SOLN No Conflict Check, 125 MG PO Q6 for 9 Days, #4500 MG Prov:JOVANNA CARR MD 03/03/18 Amiodarone Hcl* (Amiodarone Hcl*) 200 Mg Tablet, 200 MG PO DAILY for 30 Days, #30 TAB Prov:ALEXANDRO ANDERS 12/20/17 Acyclovir* (Acyclovir*) 400 Mg Tablet, 400 MG PO TID for 14 Days, #42 TAB Prov:ALEXANDRO ANDERS 12/20/17 Allergies Allergies: Coded Allergies: No Known Drug Allergies (Unverified Allergy, Mild, 05/29/18) PMhx/Soc History of Surgery: Yes (Craniotomy, colonoscopy, EGD) Anesthesia Reaction: No Hx Neurological Disorder: Yes (Epilepsy) Hx Respiratory Disorders: Yes (COPD) Hx Cardiac Disorders: Yes (atrial flutter) Hx Psychiatric Problems: No Hx Miscellaneous Medical Probl: Yes (pls see EMR) Hx Alcohol Use: No Hx Substance Use: No Hx Tobacco Use: Yes Physical Exam Vitals Vital Signs Date Temp Pulse Resp B/P (MAP) Pulse Ox O2 O2 Flow FiO2 Time Delivery Rate 05/29/18 98.7 80 18 145/89 98 Room Air 05:15 (107) 05/29/18 83 18 159/98 98 Room Air 03:15 (118) 05/29/18 85 18 169/105 98 Room Air 01:15 (126) 05/29/18 98.0 87 20 207/85 96 00:45 (125) Physical Exam Const: No acute distress. Head: Atraumatic. Eyes: Normal Conjunctiva. ENT: Normal External Ears, Nose and Mouth. Neck: Full range of motion. No meningismus. Resp: Clear to auscultation bilaterally. Cardio: Regular rate and rhythm. Abd: Soft, non distended, normal bowel sounds, non tender. Skin: No petechiae or rashes. Back: No midline or flank tenderness. Ext: BL lateral knee with crepitus, no effusion/ecchymosis, no calf tenderness Neur: Awake and alert. No focal deficit Psych: Normal Mood and Affect. Results 24 hrs Current Medications Medications Dose Sig/Joaquin Start Time Status Last (Trade) Ordered Route PRN Stop Time Admin Dose Reason Admin 1 tab ONCE ONCE 05/29/18 DC 05/29/18 Acetaminophen PO 02:00 01:42 / 05/29/18 02:01 Hydrocodone Bitart ([place] (10/325)) Ondansetron 4 mg ONCE STAT 05/29/18 DC 05/29/18 HCl (Zofran ODT 01:35 01:42 Odt) 05/29/18 01:36 Morphine 4 mg ONCE ONCE 05/29/18 DC 05/29/18 Sulfate IV 02:23 02:27 (morphine) 05/29/18 02:24 1 mg ONCE ONCE 05/29/18 DC Hydromorphone IV 03:12 HCl 05/29/18 03:17 (Dilaudid) 0.5 mg ONCE ONCE 05/29/18 DC 05/29/18 Hydromorphone IV 03:16 03:20 HCl 05/29/18 03:19 (Dilaudid) Procedures/MDM MEDICAL MAKING DECISION: The patient is a 82-year-old male, presenting with chronic bilateral knee pain, was treated with [place] 10 mg p.o. and morphine 4 mg IV for pain with good response, is stable for outpatient follow-up The differential diagnoses considered include but are not limited to septic arthritis, contusion, sprain, fracture, internal derangement, OA Departure Diagnosis: Primary Impression: Knee pain Condition: Good Comments He was discharged with 5 tablets of [place] 5 mg I discussed the findings with the patient. I advised the patient to follow-up with the primary physician in about 2-3 days, sooner if needed and return if any concern. Disclaimer: Inadvertent spelling and grammatical errors are likely due to EHR/dictation software use and do not reflect on the overall quality of patient care. Also, please note that the electronic time recorded on this note does not necessarily reflect the actual time of the patient encounter. SHELBY RNEEE MD May 29, 2018 01:26
[2018-05-29] MEDS ORDERED: ONDANSETRON (ODT) 4 MG TAB ODT STA (01:35)
[2018-05-29] MEDS ORDERED: HYDROCODONE/APAP (10/325) TAB PO ONE (02:00)
[2018-05-29] MEDS ORDERED: morphine 4 MG/ML VIAL IV ONE (02:23)
[2018-05-29] MEDS ORDERED: HYDROmorphONE 2 MG/ML SYG IV ONE ×2 (03:12→03:16)
[2018-05-29] MEDS ORDERED: LANT3I SC (03:21)
[2018-05-29] MEDS ORDERED: HYDR-4011 PO (05:08)
[2018-05-29 05:15] VITALS: BP 145/89; PULSE 80; RESP 18
== END 2018-05-29 05:30 | disposition home or self-care (01) ==
LOC: E/R 00:39
DX: M25.561 Pain in right knee (principal); M25.562 Pain in left knee; J44.9 Chronic obstructive pulmonary disease, unspecified; N18.9 Chronic kidney disease, unspecified; I12.9 Hypertensive chronic kidney disease with stage 1 through stage 4 chronic kidney disease, or unspecified chronic kidney disease; E11.22 Type 2 diabetes mellitus with diabetic chronic kidney disease; Z79.4 Long term (current) use of insulin; Z87.891 Personal history of nicotine dependence; Z99.2 Dependence on renal dialysis
CPT/HCPCS: 96374; 96375; 99284; J1170; J2270